=== PATIENT | male | born 1955 | race Caucasian/White ===

== ENCOUNTER 2018-11-26 10:27 | Outpatient (RCR) | payer BC ==
[~2018-11-26] VITALS: Ht 177.8 cm; Wt 95.7 kg
[2018-11-26] MEDS ORDERED: CATHETER FLUSH 10 ML SYR IV PRN (11:15)
[2018-11-26] MEDS ORDERED: REGADENOSON 0.4 MG/5 ML SYR (LEXISCAN) IV ONE ×2 (12:00→12:43)
[2018-11-26 13:05] VITALS: BP 142/92
[2018-11-26 13:07] VITALS: BP 152/77
--- NOTE | 2018-11-26 20:10 | STRESS TEST ---
DATE OF SERVICE: 11/26/2018 LEXISCAN MYOVIEW STRESS TEST REPORT REFERRING PHYSICIAN: Dr. Encinas. Baseline heart rate is 57. Baseline blood pressure 142/92. Baseline EKG is atrial fibrillation with no ischemic changes. In summary, the patient was injected with 10.84 mCi of technetium-99 Myoview and the resting images were obtained. Then, the patient received 0.4 mg of Lexiscan followed by 33.0 mCi of technetium-99 Myoview. Throughout the test, there were no EKG changes. The resting and stress images were reviewed and compared in the short axis, horizontal long axis, and vertical long axis views. Review of the images showed diaphragmatic attenuation with no significant ischemia or infarction. SSS is 0. TID value is increased, probably due to the atrial fibrillation of 1.26. On the gated images, the left ventricle appeared to be normal size. Gated images are unreliable due to atrial fibrillation. Calculated ejection fraction 64%. CONCLUSION: 1. The patient tolerated Lexiscan well. 2. Baseline atrial fibrillation persisted throughout test. 3. No significant ischemia or infarction on SPECT images. 4. Normal left ventricular size with normal contractility. Calculated ejection fraction 64%. Job ID: [id number] DocumentID: [id number] Dictated Date: 11/26/2018 17:32:38 Body Cleaner Date: 11/26/2018 20:09:53 Dictated By: LITZY HATFIELD MD
[2018-12-12] MEDS ORDERED: PRAM0.257 PO (08:14)
[2018-12-12] MEDS ORDERED: CITA20TA9 PO (08:14)
[2018-12-12] MEDS ORDERED: LATA7.5D (08:14)
[2018-12-12] MEDS ORDERED: MULT-974 PO (08:14)
[2018-12-12] MEDS ORDERED: IBUP-2185 PO (08:14)
[2018-12-12] MEDS ORDERED: RIVA20TA PO (08:14)
[2018-12-12] MEDS ORDERED: LISI10TA2 PO (08:14)
[2018-12-12] MEDS ORDERED: OMEP20TA7 PO (08:14)
[2018-12-12] MEDS ORDERED: AMIO200T4 PO (09:10)
== END 2019-02-24 | disposition home or self-care (01) ==
LOC: CARD 10:27
PROVIDERS: ATTEND Internal Medicine Cardiovascular Disease
DX: I48.2 Chronic atrial fibrillation (principal); R00.1 Bradycardia, unspecified; I10 Essential (primary) hypertension; R07.9 Chest pain, unspecified; I08.1 Rheumatic disorders of both mitral and tricuspid valves; R42 Dizziness and giddiness; F32.9 Major depressive disorder, single episode, unspecified
CPT/HCPCS: 78452; 93017; 93225; 93226; 93306

== ENCOUNTER → 2018-12-12 | Day surgery (SDC) | payer BC ==
[2018-12-12] VITALS (13 sets, daily range): BP systolic 118–174; BP diastolic 0–107
[~2018-12-12] VITALS: Ht 177.8 cm; Wt 95.3 kg
[~2018-12-12] MED LIST: AMIO200T4 PO; AMIODARONE 200 MG (CORDARONE) TAB PO SCH; AMIODARONE FOR BOLUS 150 MG in D5W 100 ML IVPB 100 ML IV ONE; CITA20TA9 PO; IBUP-2185 PO; LATA7.5D; LIDOCAINE 2% VISCOUS 15 ML UDC ONE; LIDOCAINE 2% VISCOUS 15 ML UDC PO ONE; LISI10TA2 PO; MIDAZOLAM 2 MG/2 ML (VERSED) VIAL ONE; MULT-974 PO; NS IV 1000 ML 1,000 ML IV SCH; NS IV 1000 ML 1,000 ML ONE; OMEP20TA7 PO; PRAM0.257 PO; RIVA20TA PO; proPOfol 200 MG/20 ML (DIPRIVAN) VIAL IV ONE
--- OUTSIDE RECORDS SUMMARY | 2018-12-12 06:55 | XMS REPORT ---
Author Author [facility] Medical Staff Organization [facility] Address [address] [place] [id number] Phone [phone] Care Team Providers Care Assembler Skylights Name Role Phone RENEE VAZQUEZ MD PP [phone] Summary purpose CCDA Sent to [facility] Chief Complaint and Reason for Visit No authorized Reason for Visit (Admitting Diagnosis) is available for this visit. Problem list No authorized problems tracked for continuity of care are available for this visit. Encounters No authorized problems tracked for encounter diagnoses are available for this visit. Medications No medications recorded for this patient visit Allergies, adverse reactions, alerts No allergy information is available for this patient. Immunizations No immunizations recorded for this patient visit Relevant diagnostic tests and/or laboratory data No authorized results are available for this patient visit History of procedures Procedure Code Code Type Description Date Performed Performing Physician 43739 CPT-4 X-RAY EXAM OF [place] 06-25-2017 ROGERS MACEDO 70141 CPT-4 X-RAY EXAM OF [place] 06-25-2017 ROGERS MACEDO Functional status No functional or cognitive status observations are available for this visit. Vital signs No authorized vital signs are available for this visit. Social history No Social History or smoking status observations were recorded for this visit. ( Unknown if ever smoked.) Treatment Plan No treatment plan text is available for this visit. Hospital discharge instructions No discharge instruction text is available for this visit.
--- OUTSIDE RECORDS SUMMARY | 2018-12-12 06:55 | XMS REPORT | CCD ---
Author Author EUGENIO MENENDEZ Organization Unknown Address [address] [place] [address] Care Team Providers Care Permaculture Designer Name Role Phone REMINGTON BILLS, ROGERS SNIDER Attphys Allergies Allergy Code Allergy Type Reaction Status PCN (penicillin) 0 Drug allergy HIVES Active Active Medications Unknown or Not Available. Problems Unknown or Not Available. Procedures Procedure Code Procedure Type Date Arthroscopy, knee, surgical; with meniscectomy (medial OR lateral, includi 50454 CPT 12/14/2016 Results Unknown or Not Available. Function Status Unknown or Not Available. History of Immunizations Immunization Code Date Td (adult), adsorbed 09 03/01/1999 Hep A, adult 52 03/01/1999 IG 86 03/01/1999 typhoid, ViCPs 101 03/01/1999 Plan of Treatment Unknown or Not Available. Social History Smoking Status Code Start Date End Date Never smoker [id number] Vital Signs Vital Sign Value Unit Date/Time Recent/Initial? BMI (Body Mass Index) 29.41 kg/m2 12/07/2016 12:39 Initial VS Weight Measured 205 [lb_av] 12/07/2016 12:39 Initial VS Height 70 [in_i] 12/07/2016 12:39 Initial VS BSA (Body Surface Area) 2.14 m2 12/07/2016 12:39 Initial VS Heart Rate 60 /min 12/14/2016 12:01 Initial VS O2 % BldC Oximetry 88 % 12/14/2016 12:01 Initial VS BP Systolic 107 mm[Hg] 12/14/2016 12:02 Initial VS BP Diastolic 63 mm[Hg] 12/14/2016 12:02 Initial VS Respiratory Rate 9 /min 12/14/2016 12:02 Initial VS Respiratory Rate 17 /min 12/14/2016 12:33 Most Recent VS O2 % BldC Oximetry 100 % 12/14/2016 12:33 Most Recent VS BP Systolic 140 mm[Hg] 12/14/2016 12:35 Most Recent VS BP Diastolic 72 mm[Hg] 12/14/2016 12:35 Most Recent VS Heart Rate 68 /min 12/14/2016 12:35 Most Recent VS Function Status Unknown or Not Available. Goals Unknown or Not Available. ASSESSMENTS Unknown or Not Available. Health Concerns Section Unknown or Not Available.
--- OUTSIDE RECORDS SUMMARY | 2018-12-12 06:57 | XMS REPORT ---
Author Author Hayder Encinas [facility] Address [address] [place], [place] [id number] Care Team Providers Care Curriculum Director Name Role Phone Hayder Encinas PCP Hayder Encinas PreferredProvider Allergies and Adverse Reactions Name Reaction Notes PENICILLINS Plan of Treatment Planned Activity Comments Planned Date Planned Time Plan/Goal CBC With Auto Differential 11/20/2018 12:00 AM CMP 11/20/2018 12:00 AM Lipid profile 11/20/2018 12:00 AM Hemoglobin A1C 11/20/2018 12:00 AM Thyroid stimulating hormone (TSH) 11/20/2018 12:00 AM Vitamin B12 11/20/2018 12:00 AM EKG. 11/20/2018 12:00 AM Troponin I blood 11/20/2018 12:00 AM UA ROUTINE ONLY 11/20/2018 12:00 AM Medications Active Name Start Date Estimated Completion Date SIG Comments Sildenafil 20 mg 06/20/2018 take 1 tablet daily and prn pramipexole 0.25 mg oral tablet 07/14/2018 TAKE 1 TABLET 2 TO 3 HOURS BEFORE BEDTIME lisinopril 5 mg oral tablet 07/22/2018 07/17/2019 take 1 tablet (5 mg) by oral route once daily for 90 days citalopram 20 mg oral tablet 09/22/2018 TAKE 1 TABLET DAILY timolol maleate 0.25 % ophthalmic (eye) drops 11/19/2018 Name Start Date Expiration Date SIG Comments Bactrim DS 800-160 mg oral tablet 05/29/2011 06/05/2011 take 1 tablet by oral route every 12 hours for 7 days Levaquin 750 mg oral tablet 09/07/2011 09/14/2011 take 1 tablet (750 mg) by oral route once daily for 7 days amoxicillin 500 mg oral capsule 2012 10/04/2012 take 2 capsules by oral route 3 times a day for 5 days Zithromax Z-Esvin 250 mg oral tablet 09/28/2013 10/03/2013 take 2 tablets (500 mg) by oral route once daily for 1 day then 1 tablet (250 mg) by oral route once daily for 4 days ciprofloxacin HCl 500 mg oral tablet 01/29/2014 02/19/2014 take 1 tablet (500 mg) by oral route every 12 hours for 21 days Medrol (Esvin) 4 mg oral tablets,dose pack 12/27/2014 01/08/2015 take as directed for 6 days promethazine-codeine 6.25-10 mg/5 mL oral syrup 12/27/2014 take 5 milliliters by oral route every 6 hours as needed, not to exceed 30 mL in 24 hours Levaquin 500 mg oral tablet 09/19/2015 09/26/2015 take 1 tablet (500 mg) by oral route once daily for 7 days Cialis 5 mg oral tablet 09/19/2015 10/19/2015 take 1 tablet (5 mg) by oral route once daily for 30 days Levaquin 500 mg oral tablet 09/19/2017 10/03/2017 take 1 tablet (500 mg) by oral route once daily for 14 days Discontinued Name Start Date Discontinued Date SIG Comments Lexapro 10 mg oral tablet 12/05/2012 take 1 tablet (10 mg) by oral route once daily Mirapex 0.125 mg oral tablet 08/28/2011 12/05/2012 take 1 tablet (0.125 mg) by oral route 2-3 hours before bedtime Alysa-D 12 Hour 60-120 mg oral tablet extended release 12 hr 12/05/201209/28 take 1 tablet by oral route 2 times a day as needed Medrol (Esvin) 4 mg oral tablets,dose pack 12/05/2012 09/28/2013 take as directed Axiron 30 mg/actuation (1.5 mL) transdermal solution in metered pump w/susan 04/06/2014 apply 1 pump (30 mg) by topical route once daily in the morning to each underarm for a total dose of 60 mg promethazine-codeine 6.25-10 mg/5 mL oral syrup 09/28/2013 04/06/2014 take 5 milliliters by oral route every 4-6 hours as needed, not to exceed 30 mL in 24 hours promethazine-codeine 6.25-10 mg/5 mL oral syrup 02/28/2015 04/06/2016 take 5 milliliters by oral route every 6 hours as needed amoxicillin 875 mg oral tablet 07/25/2015 07/29/2015 take 1 tablet (875 mg) by oral route every 12 hours for 7 days Bactrim DS 800-160 mg oral tablet 07/25/2015 07/29/2015 take 1 tablet by oral route every 12 hours for 7 days fluticasone 50 mcg/actuation nasal spray,suspension 10/21/2015 04/06/2016 inhale 1 spray (50 mcg) in each nostril by intranasal route once daily Bactrim DS 800-160 mg oral tablet 09/12/2017 09/19/2017 take 1 tablet by oral route every 12 hours for 7 days lisinopril-hydrochlorothiazide 10-12.5 mg oral tablet 11/21/2017 05/05/2018 take 1/2 tablet by oral route once daily for 30 days Problem List Description Status Onset Depression Active Restless Leg Syndrome Active Testosterone deficiency Active Vital Signs Date Time BP-Sys(mm[Hg] BP-Ofe(mm[Hg]) HR(bpm) RR(rpm) Temp WT HT HC BMI BSA BMI Percentile O2 Sat(%) 11/20/2018 9:30:00 AM 118 mmHg 60 mmHg 41 bpm 18 rpm 97.9 F 212.5 lbs 70 in 30.4903 kg/m 2.1819 m 99 % 04/17/2018 8:31:00 AM 134 mmHg 88 mmHg 56 bpm 18 rpm 98.1 F 208.375 lbs 70 in 29.90 kg/m2 2.16 m2 98 % 11/05/2017 6:12:00 PM 142 mmHg 86 mmHg 60 bpm 16 rpm 97.6 F 211 lbs 70 in 30.275 kg/m 2.1742 m 97 % 09/12/2017 9:47:00 AM 158 mmHg 94 mmHg 79 bpm 16 rpm 97.8 F 209.375 lbs 70 in 30.04 kg/m2 2.17 m2 99 % 08/29/2017 10:11:00 AM 130 mmHg 88 mmHg 75 bpm 20 rpm 97.1 F 210.125 lbs 70 in 30.1495 kg/m 2.1696 m 97 % 08/15/2017 8:24:00 AM 172 mmHg 94 mmHg 60 bpm 20 rpm 97 F 211.25 lbs 70 in 30.31 kg/m2 2.18 m2 98 % 04/16/2017 8:45:00 AM 134 mmHg 86 mmHg 59 bpm 14 rpm 96.1 F 207.5 lbs 70 in 29.7728 kg/m 2.156 m 97 % 04/06/2016 8:31:00 AM 126 mmHg 68 mmHg 60 bpm 19 rpm 97.7 F 233.8 lbs 70 in 33.55 kg/m2 2.29 m2 99 % 10/21/2015 9:01:00 AM 110 mmHg 70 mmHg 77 bpm 20 rpm 98.9 F 200 lbs 70 in 28.6967 kg/m 2.1167 m 99 % 09/19/2015 11:02:00 AM 124 mmHg 72 mmHg 85 bpm 18 rpm 98.4 F 201 lbs 70 in 28.84 kg/m2 2.12 m2 96 % 07/29/2015 9:15:00 AM 138 mmHg 82 mmHg 74 bpm 18 rpm 97.6 F 207 lbs 70 in 29.7011 kg/m 2.1534 m 95 % 02/28/2015 10:20:00 AM 128 mmHg 82 mmHg 83 bpm 20 rpm 98 F 205.125 lbs 70 in 29.43 kg/m2 2.14 m2 94 % 12/27/2014 1:58:00 PM 13 mmHg 86 mmHg 72 bpm 18 rpm 98 F 207 lbs 70 in 29.7011 kg/m 2.1534 m 10/18/2014 9:04:00 AM 134 mmHg 82 mmHg 60 bpm 18 rpm 97.7 F 204 lbs 70 in 29.27 kg/m2 2.14 m2 07/09/2014 9:16:00 AM 134 mmHg 82 mmHg 80 bpm 18 rpm 98 F 206 lbs 70 in 29.56 kg/m2 2.1482 m 04/06/2014 11:16:00 AM 132 mmHg 76 mmHg 59 bpm 16 rpm 97.4 F 192 lbs 70 in 27.5488 kg/m 2.07 m2 97 % 03/30/2014 10:56:00 AM 120 mmHg 82 mmHg 60 bpm 18 rpm 97.4 F 196 lbs 70 in 28.12 kg/m2 2.0954 m 02/11/2014 9:25:00 AM 118 mmHg 72 mmHg 72 bpm 18 rpm 98 F 201 lbs 70 in 28.8402 kg/m 2.12 m2 01/29/2014 9:40:00 AM 120 mmHg 82 mmHg 64 bpm 18 rpm 98 F 201 lbs 70 in 28.84 kg/m2 2.122 m 09/28/2013 2:10:00 PM 132 mmHg 64 mmHg 77 bpm 18 rpm 97.6 F 208.125 lbs 70 in 29.8625 kg/m 2.16 m2 98 % 07/08/2013 8:18:00 AM 130 mmHg 82 mmHg 78 bpm 18 rpm 97.6 F 205 lbs 70 in 29.41 kg/m2 2.143 m 12/05/2012 8:11:00 AM 130 mmHg 78 mmHg 64 bpm 18 rpm 87.5 F 201.4 lbs 70 in 28.8976 kg/m 2.12 m2 99 % 04/24/2012 10:46:00 AM 124 mmHg 72 mmHg 72 bpm 18 rpm 97.8 F 200 lbs 70 in 28.70 kg/m2 2.1167 m 10/02/2011 9:44:00 AM 132 mmHg 80 mmHg 64 bpm 20 rpm 97.4 F 196 lbs 70 in 28.1228 kg/m 2.10 m2 09/19/2011 10:44:00 AM 128 mmHg 72 mmHg 80 bpm 20 rpm 98.9 F 198 lbs 70 in 28.41 kg/m2 2.1061 m 09/07/2011 10:59:00 AM 134 mmHg 82 mmHg 72 bpm 18 rpm 97.8 F 198 lbs 70 in 28.4098 kg/m 2.11 m2 08/23/2011 1:55:00 PM 142 mmHg 74 mmHg 64 bpm 18 rpm 97.8 F 198 lbs 70 in 28.41 kg/m2 2.1061 m 05/29/2011 11:20:00 AM 122 mmHg 62 mmHg 66 bpm 18 rpm 98.3 F 195.375 lbs 70 in 28.0331 kg/m 2.09 m2 11/17/2010 10:41:00 AM 130 mmHg 82 mmHg 78 bpm 20 rpm 98.3 F 203 lbs 07/03/2010 9:46:00 AM 118 mmHg 74 mmHg 80 bpm 20 rpm 96.9 F 201 lbs 09/07/2009 8:47:00 AM 130 mmHg 72 mmHg 68 bpm 18 rpm 97 F 203 lbs 70 in 29.1272 kg/m 2.1325 m Social History Name Description Comments denies alcohol use Lives with spouse Tobacco Never smoker History of Procedures Date Ordered Description Order Status 07/29/2015 12:00 AM COMPLETE CBC W/AUTO DIFF WBC Reviewed 07/29/2015 12:00 AM COMPREHEN METABOLIC PANEL Reviewed 07/29/2015 12:00 AM GLYCOSYLATED HEMOGLOBIN TEST Reviewed 07/29/2015 12:00 AM CHEST X-RAY 2VW FRONTAL&LATL Reviewed 09/19/2015 12:00 AM Decadron, Per 1 Mg [facility]# [address]-46 Reviewed 09/19/2015 12:00 AM Depo-Medrol, Per 80 Mg [facility]#[address]-79 Reviewed 10/21/2015 12:[address] MAXILLOFACIAL W/O DYE Reviewed 08/23/2011 12:00 AM SHAVE SKIN LESION 0.6-1.0 CM Reviewed 09/19/2011 12:00 AM COMPLETE CBC W/AUTO DIFF WBC Reviewed 09/19/2011 12:00 AM COMPREHEN METABOLIC PANEL Reviewed 09/19/2011 12:00 AM CHEST X-RAY 2VW FRONTAL&LATL Reviewed 04/06/2016 12:00 AM COMPLETE CBC W/AUTO DIFF WBC Reviewed 04/06/2016 12:00 AM LIPID PANEL Reviewed 10/02/2011 12:00 AM BREATHING CAPACITY TEST Reviewed 04/24/2012 12:00 AM COMPLETE CBC W/AUTO DIFF WBC Reviewed 04/24/2012 12:00 AM COMPREHEN METABOLIC PANEL Reviewed 04/24/2012 12:00 AM LIPID PANEL Reviewed 04/24/2012 12:00 AM ASSAY OF TOTAL TESTOSTERONE Reviewed 04/16/2017 12:00 AM METABOLIC PANEL TOTAL CA Returned 04/16/2017 12:00 AM COMPLETE CBC W/AUTO DIFF WBC Returned 04/16/2017 12:00 AM LIPID PANEL Returned 04/16/2017 12:00 AM Prostate Cancer Screening Returned 09/12/2017 12:00 AM MRI BRAIN STEM W/O & W/DYE Returned 09/16/2017 12:00 AM METABOLIC PANEL TOTAL CA Returned 12/05/2012 12:00 AM X-RAY EXAM KNEE 4 OR MORE Reviewed 12/05/2012 12:00 AM Cbc With Auto Differential % Reviewed 12/05/2012 12:00 AM COMPREHEN METABOLIC PANEL Reviewed 12/05/2012 12:00 AM LIPID PANEL Reviewed 12/05/2012 12:00 AM VIT B-12 ABSORP COMBINED Reviewed 12/05/2012 12:00 AM ASSAY THYROID STIM HORMONE Reviewed 12/05/2012 12:00 AM ASSAY OF TOTAL TESTOSTERONE Reviewed 04/17/2018 12:00 AM COMPLETE CBC W/AUTO DIFF WBC Returned 04/17/2018 12:00 AM COMPREHEN METABOLIC PANEL Returned 04/17/2018 12:00 AM LIPID PANEL Returned 04/17/2018 12:00 AM Prostate Cancer Screening Returned 05/15/2018 12:00 AM COMPLETE CBC W/AUTO DIFF WBC Returned 06/25/2013 12:00 AM ROUTINE VENIPUNCTURE Reviewed 06/25/2013 12:00 AM ASSAY OF TOTAL TESTOSTERONE Reviewed 09/28/2013 12:00 AM THER/PROPH/DIAG INJ SC/IM Reviewed 09/28/2013 12:00 AM Decadron, Per 1 Mg [facility]# [address]-37 Reviewed 09/28/2013 12:00 AM Depo-Medrol, Per 80 Mg [facility]#9636-9207-17 Reviewed 01/29/2014 12:00 AM COMPLETE CBC W/AUTO DIFF WBC Reviewed 01/29/2014 12:00 AM Prostate Cancer Screening PSA Reviewed 09/07/2009 12:00 AM COMPLETE CBC W/AUTO DIFF WBC Reviewed 09/07/2009 12:00 AM COMPREHEN METABOLIC PANEL Reviewed 09/07/2009 12:00 AM LIPID PANEL Reviewed 09/07/2009 12:00 AM GLYCOSYLATED HEMOGLOBIN TEST Reviewed 09/07/2009 12:00 AM ASSAY OF PSA TOTAL Reviewed 09/07/2009 12:00 AM EXC TR-EXT B9+ODALYS 0.5 CM< Reviewed 11/17/2010 12:00 AM COMPLETE CBC W/AUTO DIFF WBC Reviewed 11/17/2010 12:00 AM COMPREHEN METABOLIC PANEL Reviewed 11/17/2010 12:00 AM ASSAY THYROID STIM HORMONE Reviewed 11/17/2010 12:00 AM VITAMIN B-12 Reviewed 11/17/2010 12:00 AM Prostate Cancer Screening Reviewed 11/17/2010 12:00 AM ASSAY OF TOTAL TESTOSTERONE Reviewed 11/17/2010 12:00 AM THER/PROPH/DIAG INJ SC/IM Reviewed 11/17/2010 12:00 AM Depo-Medrol 80 Mg [facility] [id number] Reviewed 11/17/2010 12:00 AM Decadron Inj. per 1mg-[facility] [id number] Reviewed 10/18/2014 12:00 AM COMPLETE CBC W/AUTO DIFF WBC Reviewed 10/18/2014 12:00 AM COMPREHEN METABOLIC PANEL Reviewed 10/18/2014 12:00 AM LIPID PANEL Reviewed 10/18/2014 12:00 AM GLYCOSYLATED HEMOGLOBIN TEST Reviewed 10/18/2014 12:00 AM ASSAY THYROID STIM HORMONE Reviewed 10/18/2014 12:00 AM VITAMIN B-12 Reviewed 10/18/2014 12:00 AM ASSAY OF TOTAL TESTOSTERONE Reviewed 12/27/2014 12:00 AM Rocephin 1 gram [facility]#0322-1610-05 Reviewed 02/28/2015 12:00 AM Decadron, Per 1 Mg [facility]# [address]-40 Reviewed 02/28/2015 12:00 AM Depo-Medrol 40mg Reviewed Results Summary Date and Description Results 11/17/2010 11:55 AM PSA TOTAL 1.530 ng/mLTSH 1.770 uIU/mLGLUCOSE 97.0 mg/ dLSODIUM 138.0 mmol/LPOTASSIUM 4.60 mmol/LCHLORIDE 101.0 mmol/LCO2 25.0 mmol/ LBUN 11.0 mg/dLCREATININE 0.90 mg/dLSGOT/AST 44.0 IU/LSGPT/ALT 54.0 IU/LALK PHOS 86.0 IU/LTOTAL PROTEIN 8.0 g/dLALBUMIN 4.70 g/dLTOTAL BILI 0.70 mg/ dLCALCIUM 9.70 mg/dLAGE 55 GFR NonAA 87 GFR AA 105 eGFR >60 mL/min/1.73 m2eGFR AA* >60 WBC 5.9 RBC 5.29 HGB 16.50 g/dLHCT 45.30 %MCV 86.0 fLMCH 31.20 pgMCHC 36.40 g/dLRDW SD 39 RDW CV 12.30 %MPV 9.90 fLPLT 230 NRBC# 0.00 NRBC% 0.0 %NEUT 57.40 %%LYMP 24.80 %%MONO 13.20 %%EOS 3.90 %%BASO 0.70 %#NEUT 3.38 #LYMP 1.46 # MONO 0.78 #EOS 0.23 #BASO 0.04 MANUAL DIFF NOT IND 09/19/2011 12:10 PM WBC 12.4 RBC 4.80 HGB 14.80 g/dLHCT 41.50 %MCV 87.0 fLMCH 30.80 pgMCHC 35.70 g/dLRDW SD 40 RDW CV 12.80 %MPV 9.40 fLPLT 217 NRBC# 0.00 NRBC% 0.0 %NEUT 63.50 %%LYMP 16.70 %%MONO 15.10 %%EOS 4.10 %%BASO 0.60 %#NEUT 7.88 #LYMP 2.08 #MONO 1.88 #EOS 0.51 #BASO 0.07 MANUAL DIFF NOT IND GLUCOSE 69.0 mg/dLSODIUM 135.0 mmol/LPOTASSIUM 4.20 mmol/LCHLORIDE 101.0 mmol/LCO2 26.0 mmol/LBUN 12.0 mg/dLCREATININE 1.0 mg/dLSGOT/AST 24.0 IU/LSGPT/ALT 25.0 IU/LALK PHOS 80.0 IU/LTOTAL PROTEIN 7.0 g/dLALBUMIN 4.40 g/dLTOTAL BILI 0.80 mg/ dLCALCIUM 9.70 mg/dLAGE 55 GFR NonAA 77 GFR AA 93 eGFR >60 mL/min/1.73 m2eGFR AA * >60 06/12/2012 9:00 AM WBC 10.3 RBC 5.54 HGB 17.20 g/dLHCT 47.30 %MCV 85.0 fLMCH 31.0 pgMCHC 36.40 g/dLRDW SD 38 RDW CV 12.30 %MPV 9.60 fLPLT 282 NRBC# 0.00 NRBC % 0.0 %NEUT 55.70 %%LYMP 30.90 %%MONO 8.70 %%EOS 4.10 %%BASO 0.60 %#NEUT 5.74 # LYMP 3.18 #MONO 0.90 #EOS 0.42 #BASO 0.06 MANUAL DIFF NOT IND GLUCOSE 96.0 mg/ dLSODIUM 139.0 mmol/LPOTASSIUM 4.30 mmol/LCHLORIDE 105.0 mmol/LCO2 27.0 mmol/ LBUN 20.0 mg/dLCREATININE 1.0 mg/dLSGOT/AST 34.0 IU/LSGPT/ALT 40.0 IU/LALK PHOS 75.0 IU/LTOTAL PROTEIN 7.80 g/dLALBUMIN 4.60 g/dLTOTAL BILI 1.10 mg/dLCALCIUM 10.10 mg/dLAGE 56 GFR NonAA 77 GFR AA 93 eGFR 60 eGFR AA* 60 TRIGLYCERIDES 109.0 mg/dLCHOLESTEROL 176.0 mg/dLHDL 46.0 mg/dLTOT CHOL/HDL 3.8 LDL (CALC) 108.0 mg/dL 12/05/2012 9:10 AM WBC 7.7 RBC 5.37 HGB 16.80 g/dLHCT 45.60 %MCV 85.0 fLMCH 31.30 pgMCHC 36.80 g/dLRDW SD 39 RDW CV 12.60 %MPV 9.60 fLPLT 255 NRBC# 0.00 NRBC% 0.0 %NEUT 62.30 %%LYMP 27.40 %%MONO 6.10 %%EOS 3.60 %%BASO 0.60 %#NEUT 4.79 #LYMP 2.11 #MONO 0.47 #EOS 0.28 #BASO 0.05 MANUAL DIFF NOT IND GLUCOSE 97.0 mg/dLSODIUM 141.0 mmol/LPOTASSIUM 4.80 mmol/LCHLORIDE 105.0 mmol/LCO2 26.0 mmol/LBUN 14.0 mg/dLCREATININE 1.0 mg/dLSGOT/AST 26.0 IU/LSGPT/ALT 31.0 IU/LALK PHOS 82.0 IU/LTOTAL PROTEIN 7.60 g/dLALBUMIN 4.50 g/dLTOTAL BILI 0.90 mg/ dLCALCIUM 10.10 mg/dLAGE 57 GFR NonAA 77 GFR AA 93 eGFR 60 eGFR AA* 60 TRIGLYCERIDES 96.0 mg/dLCHOLESTEROL 157.0 mg/dLHDL 48.0 mg/dLTOT CHOL/HDL 3.3 LDL (CALC) 90.0 mg/dLTSH 1.670 uIU/mLVITAMIN B12 452.0 pg/mL 06/30/2013 8:10 AM TESTOSTERONE 386.0 ng/dL 01/29/2014 11:07 AM WBC 7.3 RBC 5.31 HGB 16.60 g/dLHCT 45.10 %MCV 85.0 fLMCH 31.30 pgMCHC 36.80 g/dLRDW SD 40 RDW CV 12.90 %MPV 10.10 fLPLT 277 NRBC# 0.00 NRBC% 0.0 %NEUT 54.90 %%LYMP 31.90 %%MONO 7.90 %%EOS 4.80 %%BASO 0.50 %#NEUT 4.03 #LYMP 2.34 #MONO 0.58 #EOS 0.35 #BASO 0.04 MANUAL DIFF NOT IND PSA TOTAL 1.970 ng/mL 10/18/2014 9:45 AM TESTOSTERONE 393.0 ng/dLVITAMIN B12 445.0 pg/mLTSH 1.420 uIU/ mLGLUCOSE 92.0 mg/dLSODIUM 141.0 mmol/LPOTASSIUM 4.40 mmol/LCHLORIDE 105.0 mmol/ LCO2 25.0 mmol/LBUN 12.0 mg/dLCREATININE 0.90 mg/dLSGOT/AST 32.0 IU/LSGPT/ALT 42.0 IU/LALK PHOS 70.0 IU/LTOTAL PROTEIN 7.30 g/dLALBUMIN 4.50 g/dLTOTAL BILI 0.60 mg/dLCALCIUM 10.0 mg/dLAGE 59 GFR NonAA 86 GFR AA 104 eGFR >60 mL/min/1.73 m2eGFR AA* >60 WBC 7.9 RBC 5.05 HGB 15.90 g/dLHCT 44.20 %MCV 88.0 fLMCH 31.50 pgMCHC 36.0 g/dLRDW SD 40 RDW CV 12.80 %MPV 9.50 fLPLT 255 NRBC# 0.00 NRBC% 0.0 %NEUT 60.40 %%LYMP 28.20 %%MONO 8.0 %%EOS 2.80 %%BASO 0.60 %#NEUT 4.78 #LYMP 2.23 #MONO 0.63 #EOS 0.22 #BASO 0.05 MANUAL DIFF NOT IND TRIGLYCERIDES 70.0 mg/ dLCHOLESTEROL 150.0 mg/dLHDL 52.0 mg/dLTOT CHOL/HDL 2.9 LDL (CALC) 84.0 mg/ dLHGB A1C 7.10 %Est Avg Glucose 157.1 mg/dL 07/29/2015 10:06 AM WBC 6.6 RBC 5.07 HGB 15.60 g/dLHCT 43.70 %MCV 86.0 fLMCH 30.80 pgMCHC 35.70 g/dLRDW SD 39 RDW CV 12.50 %MPV 9.70 fLPLT 256 NRBC# 0.00 NRBC% 0.0 %NEUT 56.10 %%LYMP 21.30 %%MONO 14.90 %%EOS 7.40 %%BASO 0.30 %#NEUT 3.69 #LYMP 1.40 #MONO 0.98 #EOS 0.49 #BASO 0.02 MANUAL DIFF PENDING GLUCOSE 98.0 mg/dLSODIUM 137.0 mmol/LPOTASSIUM 4.60 mmol/LCHLORIDE 106.0 mmol/LCO2 23.0 mmol/LBUN 16.0 mg/dLCREATININE 1.10 mg/dLSGOT/AST 34.0 IU/LSGPT/ALT 37.0 IU/ LALK PHOS 85.0 IU/LTOTAL PROTEIN 6.70 g/dLALBUMIN 4.40 g/dLTOTAL BILI 0.80 mg/ dLCALCIUM 9.20 mg/dLAGE 59 GFR NonAA 68 GFR AA 82 eGFR >60 mL/min/1.73meGFR AA * >60 Hemoglobin A1c 5.70 %Estim. Avg Glu (eAG) 117 04/06/2016 9:22 AM WBC 8.2 RBC 5.37 HGB 15.90 g/dLHCT 45.60 %MCV 85.0 fLMCH 29.60 pgMCHC 34.90 g/dLRDW SD 36 RDW CV 12.10 %MPV 9.70 fLPLT 276 NRBC# 0.00 NRBC% 0.0 %NEUT 55.40 %%LYMP 30.90 %%MONO 8.50 %%EOS 4.0 %%BASO 0.70 %#NEUT 4.53 #LYMP 2.53 #MONO 0.70 #EOS 0.33 #BASO 0.06 MANUAL DIFF NOT IND TRIGLYCERIDES 114.0 mg/dLCHOLESTEROL 145.0 mg/dLHDL 43.0 mg/dLTOT CHOL/HDL 3.4 LDL (CALC) 79.0 mg/dL History Of Immunizations Not available. History of Past Illness Name Date of Onset Comments Depression and anxiety Sep 07 2009 8:50AM Warts Sep 07 2009 2:06PM Hypersomnia, Transient Sep 07 2009 8:50AM Warts Sep 07 2009 8:50AM Depression Restless Leg Syndrome Testosterone deficiency Depression and anxiety Jul 03 2010 9:51AM Fatigue Nov 17 2010 10:45AM Sinusitis, Acute Nov 17 2010 10:45AM Prostate screening Nov 17 2010 10:45AM General Medical Exam, Adult Nov 17 2010 10:45AM Upper Respiratory Infections May 29 2011 11:17AM Lesion, Skin Aug 28 2011 8:08AM Restless Leg Syndrome Aug 23 2011 2:01PM Upper Respiratory Infection Sep 07 2011 11:04AM Upper Respiratory Infection Sep 19 2011 10:49AM Cough Oct 02 2011 9:48AM Sinusitis Apr 24 2012 10:50AM Screening for Lipid disorders Apr 24 2012 10:50AM Testosterone deficiency Apr 24 2012 10:50AM Fatigue Dec 05 2012 8:18AM Eustachian Tube Dysfunction, Bilateral Dec 05 2012 8:18AM Screening for Ischemic Heart Disease Dec 05 2012 8:18AM Testosterone deficiency Dec 05 2012 8:18AM Pain in joint; Knee Left Dec 05 2012 8:18AM Prostate screening Jun 25 2013 5:40PM Testosterone deficiency Jun 25 2013 5:40PM Low Testosterone Jul 08 2013 8:26AM Upper Respiratory Infections Sep 28 2013 2:12PM Other specified disorders of male genital organs; hematospermia Jan 29 2014 9 :46AM Testosterone deficiency Jan 29 2014 9:46AM Osteoarthritis, Knee Feb 11 2014 4:46PM Osteoarthritis, knee Feb 11 2014 9:30AM General Medical Exam, Adult Mar 30 2014 11:01AM Colon Cancer Screening Apr 06 2014 11:17AM Knee pain Jul 09 2014 9:20AM Osteoarthritis, Knee Jul 13 2014 8:31AM Headache Oct 18 2014 9:13AM Hyperglycemia Oct 18 2014 9:13AM Fatigue Oct 18 2014 9:13AM Depression and anxiety Oct 18 2014 9:13AM Bronchitis, Acute Dec 27 2014 2:05PM Sinusitis Feb 28 2015 10:22AM Diabetes Mellitus, Type II Jul 29 2015 9:20AM Vision blurring Jul 29 2015 9:20AM Cough Jul 29 2015 9:20AM BPH (benign prostatic hyperplasia) Sep 19 2015 11:07AM Goiter Sep 19 2015 11:07AM Sinusitis Sep 19 2015 11:07AM Sinusitis chronic, frontal Oct 21 2015 9:04AM General Medical Exam, Adult Apr 06 2016 8:34AM General Medical Exam, Adult Apr 16 2017 8:46AM Screening For Prostate Cancer Apr 16 2017 8:46AM Hypertension Aug 15 2017 8:25AM Hypertension Aug 29 2017 10:18AM Hypertension Sep 12 2017 9:49AM Sinusitis Sep 12 2017 9:49AM Double vision Sep 12 2017 9:49AM Unsteady gait Sep 12 2017 9:49AM Blood tests prior to treatment or procedure Sep 12 2017 2:55PM Double vision Sep 12 2017 2:55PM Unsteady gait Sep 12 2017 2:55PM Blurred vision, bilateral Sep 16 2017 10:41AM Essential hypertension Nov 05 2017 6:15PM Annual physical exam Apr 17 2018 8:33AM Screening For Prostate Cancer Apr 17 2018 8:33AM Leukocytosis Apr 18 2018 10:26AM Hyperglycemia Nov 20 2018 9:35AM Polyuria Nov 20 2018 9:35AM Bradycardia Nov 20 2018 9:35AM Fatigue Nov 20 2018 9:35AM Payers Insurance Name Company Name Plan Name Plan Number Policy Number Policy Group Number Start Date [employer] [place] [id number] Monday, 2013 [employer] [place] [id number] Monday, 2009 [employer] [place] [id number] Saturday, 2013 History of Encounters Visit Date Visit Type Provider 11/20/2018 Office visit Hayder Encinas MD 04/17/2018 Office visit Hayder Encinas MD 11/05/2017 Office visit Shantell BargerKaterine Lourdes ROPE TIER 09/12/2017 Office visit Hayder Encinas MD 08/29/2017 Office visit Hayder Encinas MD 08/15/2017 Office visit Hayder Encinas MD 04/16/2017 Office visit Hayder Encinas MD 12/07/2016 Laboratory Trinidad Goldberg MD 04/06/2016 Office visit Hayder Encinas MD 10/21/2015 Office visit Frank Rojas ROPE TIER 09/19/2015 Office visit Hayder Encinas MD 07/29/2015 Office visit Hayder Encinas MD 02/28/2015 Office visit Hayder Encinas MD 12/27/2014 Office visit Hayder Encinas MD 10/18/2014 Office visit 10/18/2014 Office visit Hayder Encinas MD 07/09/2014 Office visit Hayder Encinas MD 04/15/2014 [facility] Celso Luke MD 04/06/2014 Office visit Celso Luke MD 03/30/2014 Office visit Hayder Encinas MD 02/11/2014 Office visit Hayder Encinas MD 01/29/2014 Office visit Hayder Encinas MD 09/28/2013 Office visit Tessa Bloom APRN 07/08/2013 Office visit Hayder Encinas MD 12/05/2012 Office visit Chanda Tomlinson APRN 04/24/2012 Office visit Hayder Encinas MD 10/02/2011 Office visit Hayder Encinas MD 09/19/2011 Office visit Hayder Encinas MD 09/07/2011 Office visit Hayder Encinas MD 08/23/2011 Office visit Hayder Encinas MD 05/29/2011 Office visit Tessa Bloom APRN 11/17/2010 Office visit Hayder Encinas MD 07/03/2010 Office visit Hayder Encinas MD 09/07/2009 Office visit Hayder Encinas MD
--- OUTSIDE RECORDS SUMMARY | 2018-12-12 06:58 | XMS REPORT ---
Author Author Hayder Encinas [facility] Address [address] [place], [place] [id number] Care Team Providers Care Handle Maker Name Role Phone Hayder Encinas PCP Hayder Encinas PreferredProvider Allergies and Adverse Reactions Name Reaction Notes PENICILLINS Plan of Treatment Planned Activity Comments Planned Date Planned Time Plan/Goal CBC With Auto Differential 04/17/2018 12:00 AM CMP 04/17/2018 12:00 AM Lipid profile 04/17/2018 12:00 AM Medications Active Name Start Date Estimated Completion Date SIG Comments pramipexole 0.125 mg oral tablet 08/30/2014 TAKE 1 TABLET (0.125 MG) BY ORAL ROUTE 2-3 HOURS BEFORE BEDTIME FOR 90 DAYS citalopram 20 mg oral tablet 11/08/2014 TAKE 1 TABLET BY MOUTH EVERY DAY pramipexole 0.125 mg oral tablet 02/04/2015 TAKE ONE TABLET 2 TO 3 HOURS BEFORE BEDTIME citalopram 20 mg oral tablet 07/13/2015 TAKE 1 TABLET DAILY lisinopril-hydrochlorothiazide 10-12.5 mg oral tablet 11/21/2017 08/18/2018 take 1/2 tablet by oral route once daily for 30 days Name Start Date Expiration Date SIG Comments [...] 3 times a day for 5 days pramipexole 0.125 mg oral tablet 09/11/2013 09/06/2014 take 1 tablet (0.125 mg ) by oral route 2-3 hours before bedtime for 90 days Zithromax Z-Esvin 250 mg oral tablet 09/28/2013 10/03/2013 take 2 tablets (500 mg) by oral route once daily for 1 day then 1 tablet (250 mg) by oral route once daily for 4 days ciprofloxacin HCl 500 mg oral tablet 01/29/2014 02/19/2014 take 1 tablet (500 mg) by oral route every 12 hours for 21 days citalopram 20 mg oral tablet 10/18/2014 01/11/2016 take 1 tablet by oral route daily for 90 days Medrol (Esvin) 4 mg oral tablets,dose [...] oral route once daily for 30 days pramipexole 0.25 mg oral tablet 05/07/2016 09/04/2016 take 1 tablet (0.25 mg) by oral route 2-3 hours before bedtime for 30 days pramipexole 0.25 mg oral tablet 07/15/2017 07/15/2017 TAKE 1 TABLET 2 TO 3 HOURS BEFORE BEDTIME Levaquin 500 mg oral tablet 09/19/2017 10/03/2017 take 1 tablet (500 mg) by oral route once daily for 14 days citalopram 20 mg oral tablet 09/27/2017 09/27/2017 TAKE 1 TABLET DAILY Discontinued Name Start Date Discontinued Date SIG [...] route every 12 hours for 7 days Problem List Description Status Onset Depression Active Restless Leg Syndrome Active Testosterone deficiency Active Vital Signs Date Time BP-Sys(mm[Hg] BP-Ofe(mm[Hg]) HR(bpm) RR(rpm) Temp WT HT HC BMI BSA BMI Percentile O2 Sat(%) 04/17/2018 8:31:00 AM 134 mmHg 88 mmHg 56 bpm 18 rpm 98.1 F 208.375 lbs 70 in 29.8984 kg/m 2.1606 m 98 % 11/05/2017 6:12:00 PM 142 mmHg 86 mmHg 60 bpm 16 rpm 97.6 F 211 lbs 70 in 30.28 kg/m2 2.17 m2 97 % 09/12/2017 9:47:00 AM 158 mmHg 94 mmHg 79 bpm 16 rpm 97.8 F 209.375 lbs 70 in 30.0419 kg/m 2.1658 m 99 % 08/29/2017 10:11:00 AM 130 mmHg 88 mmHg 75 bpm 20 rpm 97.1 F 210.125 lbs 70 in 30.1495 kg/m 2.17 m2 97 % 08/15/2017 8:24:00 AM 172 mmHg 94 mmHg 60 bpm 20 rpm 97 F 211.25 lbs 70 in 30.31 kg/m2 2.1754 m 98 % 04/16/2017 8:45:00 AM 134 mmHg 86 mmHg 59 bpm 14 rpm 96.1 F 207.5 lbs 70 in 29.77 kg/m2 2.16 m2 97 % 04/06/2016 8:31:00 AM 126 mmHg 68 mmHg 60 bpm 19 rpm 97.7 F 233.8 lbs 70 in 33.5465 kg/m 2.2886 m 99 % 10/21/2015 9:01:00 AM 110 mmHg 70 mmHg 77 bpm 20 rpm 98.9 F 200 lbs 70 in 28.70 kg/m2 2.12 m2 99 % 09/19/2015 11:02:00 AM 124 mmHg 72 mmHg 85 bpm 18 rpm 98.4 F 201 lbs 70 in 28.8402 kg/m 2.122 m 96 % 07/29/2015 9:15:00 AM 138 mmHg 82 mmHg 74 bpm 18 rpm 97.6 F 207 lbs 70 in 29.70 kg/m2 2.15 m2 95 % 02/28/2015 10:20:00 AM 128 mmHg 82 mmHg 83 bpm 20 rpm 98 F 205.125 lbs 70 in 29.4321 kg/m 2.1437 m 94 % 12/27/2014 1:58:00 PM 13 mmHg 86 mmHg 72 bpm 18 rpm 98 F 207 lbs 70 in 29.70 kg/m2 2.15 m2 10/18/2014 9:04:00 AM 134 mmHg 82 mmHg 60 bpm 18 rpm 97.7 F 204 lbs 70 in 29.2707 kg/m 2.1378 m 07/09/2014 9:16:00 AM 134 mmHg 82 mmHg 80 bpm 18 rpm 98 F 206 lbs 70 in 29.56 kg/m2 2.15 m2 04/06/2014 11:16:00 AM 132 mmHg 76 mmHg 59 bpm 16 rpm 97.4 F 192 lbs 70 in 27.5488 kg/m 2.074 m 97 % 03/30/2014 10:56:00 AM 120 mmHg 82 mmHg 60 bpm 18 rpm 97.4 F 196 lbs 70 in 28.12 kg/m2 2.10 m2 02/11/2014 9:25:00 AM 118 mmHg 72 mmHg 72 bpm 18 rpm 98 F 201 lbs 70 in 28.8402 kg/m 2.122 m 01/29/2014 9:40:00 AM 120 mmHg 82 mmHg 64 bpm 18 rpm 98 F 201 lbs 70 in 28.84 kg/m2 2.12 m2 09/28/2013 2:10:00 PM 132 mmHg 64 mmHg 77 bpm 18 rpm 97.6 F 208.125 lbs 70 in 29.8625 kg/m 2.1593 m 98 % 07/08/2013 8:18:00 AM 130 mmHg 82 mmHg 78 bpm 18 rpm 97.6 F 205 lbs 70 in 29.41 kg/m2 2.14 m2 12/05/2012 8:11:00 AM 130 mmHg 78 mmHg 64 bpm 18 rpm 87.5 F 201.4 lbs 70 in 28.8976 kg/m 2.1241 m 99 % 04/24/2012 10:46:00 AM 124 mmHg 72 mmHg 72 bpm 18 rpm 97.8 F 200 lbs 70 in 28.70 kg/m2 2.12 m2 10/02/2011 9:44:00 AM 132 mmHg 80 mmHg 64 bpm 20 rpm 97.4 F 196 lbs 70 in 28.1228 kg/m 2.0954 m 09/19/2011 10:44:00 AM 128 mmHg 72 mmHg 80 bpm 20 rpm 98.9 F 198 lbs 70 in 28.41 kg/m2 2.11 m2 09/07/2011 10:59:00 AM 134 mmHg 82 mmHg 72 bpm 18 rpm 97.8 F 198 lbs 70 in 28.4098 kg/m 2.1061 m 08/23/2011 1:55:00 PM 142 mmHg 74 mmHg 64 bpm 18 rpm 97.8 F 198 lbs 70 in 28.41 kg/m2 2.11 m2 05/29/2011 11:20:00 AM 122 mmHg 62 mmHg 66 bpm 18 rpm 98.3 F 195.375 lbs 70 in 28.0331 kg/m 2.0921 m 11/17/2010 10:41:00 AM 130 mmHg 82 mmHg [...] 09/19/2015 12:00 AM Decadron, Per 1 Mg [facility]# [address]-20 Reviewed 09/19/2015 12:00 AM Depo-Medrol, Per 80 Mg [facility]#[address]-09 Reviewed 10/21/2015 12:[address] MAXILLOFACIAL W/O [...] 12:00 AM ASSAY OF TOTAL TESTOSTERONE Reviewed 06/25/2013 12:00 AM ROUTINE VENIPUNCTURE Reviewed 06/25/2013 12:00 AM ASSAY OF TOTAL TESTOSTERONE Reviewed 09/28/2013 12:00 AM THER/PROPH/DIAG INJ SC/IM Reviewed 09/28/2013 12:00 AM Decadron, Per 1 Mg [facility]# [address]-46 Reviewed 09/28/2013 12:00 AM Depo-Medrol, Per 80 Mg [facility]#8307-3197-11 Reviewed 01/29/2014 12:00 AM COMPLETE CBC W/AUTO [...] Reviewed 11/17/2010 12:00 AM Depo-Medrol 80 Mg [facility] [id number] Reviewed 11/17/2010 12:00 AM Decadron Inj. per 1mg-[facility] [id number] Reviewed 10/18/2014 12:00 AM COMPLETE CBC W/AUTO DIFF WBC Reviewed 10/18/2014 12:00 AM COMPREHEN METABOLIC PANEL Reviewed 10/18/2014 12:00 AM LIPID PANEL Reviewed 10/18/2014 12:00 AM GLYCOSYLATED HEMOGLOBIN TEST Reviewed 10/18/2014 12:00 AM ASSAY THYROID STIM HORMONE Reviewed 10/18/2014 12:00 AM VITAMIN B-12 Reviewed 10/18/2014 12:00 AM ASSAY OF TOTAL TESTOSTERONE Reviewed 12/27/2014 12:00 AM Rocephin 1 gram [facility]#3194-6139-49 Reviewed 02/28/2015 12:00 AM Decadron, Per 1 Mg [facility]# [address]-61 Reviewed 02/28/2015 12:00 AM Depo-Medrol 40mg Reviewed [...] 15.90 g/dLHCT 45.60 %MCV 85.0 fLMCH 29.60 pgHC 34.90 g/dLRDW SD 36 RDW CV 12.10 [...] For Prostate Cancer Apr 17 2018 8:33AM Payers Insurance Name Company Name Plan Name Plan Number Policy Number Policy Group Number Start Date [employer] [place] [id number] Monday, 2013 [employer] [place] [id number] Monday, 2009 [employer] [place] [id number] Saturday, 2013 History of Encounters Visit Date Visit Type Provider 04/17/2018 Office visit Hayder Encinas MD 11/05/2017 Office visit Shantell Freed TELLERS SUPERVISOR 09/12/2017 Office visit Hayder Encinas MD 08/29/2017 Office visit Hayder Encinas MD 08/15/2017 Office visit Hayder Encinas MD 04/16/2017 Office visit Hayder Encinas MD 12/07/2016 Laboratory Trinidad Goldberg MD 04/06/2016 Office visit Hayder Encinas MD 10/21/2015 Office visit Frank Rojas TELLERS SUPERVISOR 09/19/2015 Office visit Hayder Encinas MD 07/29/2015 Office visit Hayder Encinas MD 02/28/2015 Office visit Hayder Encinas MD 12/27/2014 Office visit Hayder Encinas MD 10/18/2014 Office visit 10/18/2014 Office visit Hayder Encinas MD 07/09/2014 Office visit Hayder Encinas MD 04/15/2014 [facility] Celso Luke MD 04/06/2014 Office visit Celso Luke MD 03/30/2014 Office visit Hayder Encinas MD 02/11/2014 Office visit Hayder Encinas MD 01/29/2014 Office visit Hayder Encinas MD 09/28/2013 Office visit Tessa Bloom TELLERS SUPERVISOR 07/08/2013 Office visit Hayder Encinas MD 12/05/2012 Office visit Chanda Tomlinson TELLERS SUPERVISOR 04/24/2012 Office visit Hayder Encinas MD 10/02/2011 Office visit Hayder Encinas MD 09/19/2011 Office visit Hayder Encinas MD 09/07/2011 Office visit Hayder Encinas MD 08/23/2011 Office visit Hayder Encinas MD 05/29/2011 Office visit Tessa Bloom APRN 11/17/2010 Office visit Hayder Encinas MD 07/03/2010 Office visit Hayder Encinas MD 09/07/2009 Office visit Hayder Encinas MD
--- OUTSIDE RECORDS SUMMARY | 2018-12-12 06:58 | XMS REPORT ---
Author Author Hayder Encinas [facility] Address [address] [place], [place] [id number] Care Team Providers Care Car Rental Service Attendant Name Role Phone Hayder Encinas PCP Hayder Encinas PreferredProvider Allergies and Adverse Reactions Name Reaction Notes PENICILLINS Plan of Treatment Planned Activity Comments Planned Date Planned Time Plan/Goal CBC with Auto 05/15/2018 12:00 AM Medications Active Name Start Date [...] 09/19/2015 12:00 AM Decadron, Per 1 Mg [facility]# [address]-80 Reviewed 09/19/2015 12:00 AM Depo-Medrol, Per 80 Mg [facility]#[address]-33 Reviewed 10/21/2015 12:[address] MAXILLOFACIAL W/O [...] 04/17/2018 12:00 AM Prostate Cancer Screening Returned 06/25/2013 12:00 AM ROUTINE VENIPUNCTURE Reviewed 06/25/2013 12:00 AM ASSAY OF TOTAL TESTOSTERONE Reviewed 09/28/2013 12:00 AM THER/PROPH/DIAG INJ SC/IM Reviewed 09/28/2013 12:00 AM Decadron, Per 1 Mg [facility]# [address]-62 Reviewed 09/28/2013 12:00 AM Depo-Medrol, Per 80 Mg [facility]#4544-5593-27 Reviewed 01/29/2014 12:00 AM COMPLETE CBC W/AUTO [...] Reviewed 11/17/2010 12:00 AM Depo-Medrol 80 Mg [facility] [id number] Reviewed 11/17/2010 12:00 AM Decadron Inj. per 1mg-[facility] [id number] Reviewed 10/18/2014 12:00 AM COMPLETE CBC W/AUTO DIFF WBC Reviewed 10/18/2014 12:00 AM COMPREHEN METABOLIC PANEL Reviewed 10/18/2014 12:00 AM LIPID PANEL Reviewed 10/18/2014 12:00 AM GLYCOSYLATED HEMOGLOBIN TEST Reviewed 10/18/2014 12:00 AM ASSAY THYROID STIM HORMONE Reviewed 10/18/2014 12:00 AM VITAMIN B-12 Reviewed 10/18/2014 12:00 AM ASSAY OF TOTAL TESTOSTERONE Reviewed 12/27/2014 12:00 AM Rocephin 1 gram [facility]#7964-2831-03 Reviewed 02/28/2015 12:00 AM Decadron, Per 1 Mg [facility]# [address]-66 Reviewed 02/28/2015 12:00 AM Depo-Medrol 40mg Reviewed [...] 5.54 HGB 17.20 g/dLHCT 47.30 %MCV 85.0 fLH 31.0 pgHC 36.40 g/dLRDW SD 38 RDW CV 12.30 [...] and anxiety Jul 03 2010 9:51AM Fatigue Apr 1 2011 10:45AM Sinusitis, Acute Nov 17 2010 10:45AM [...] 2018 8:33AM Leukocytosis Apr 18 2018 10:26AM Payers Insurance Name Company Name Plan Name Plan Number Policy Number Policy Group Number Start Date [employer] [place] [id number] Monday, 2013 [employer] [place] [id number] Monday, 2009 [employer] [place] [id number] Saturday, 2013 History of Encounters Visit Date Visit Type Provider 04/17/2018 Office visit Hayder Encinas MD 11/05/2017 Office visit Shantell Freed DIRECTOR TRADE 09/12/2017 Office visit Hayder Encinas MD 08/29/2017 Office visit Hayder Encinas MD 08/15/2017 Office visit Hayder Encinas MD 04/16/2017 Office visit Hayder Encinas MD 12/07/2016 Laboratory Trinidad Goldberg MD 04/06/2016 Office visit Hayder Encinas MD 10/21/2015 Office visit Frank Rojas DIRECTOR TRADE 09/19/2015 Office visit Hayder Encinas MD 07/29/2015 Office visit Hayder Encinas MD 02/28/2015 Office visit Hayder Encinas MD 12/27/2014 Office visit Hayder Encinas MD 10/18/2014 Office visit 10/18/2014 Office visit Hayder Encinas MD 07/09/2014 Office visit Hayder Encinas MD 04/15/2014 [facility] Celso Luke MD 04/06/2014 Office visit Celso Luke MD 03/30/2014 Office visit Hayder Encinas MD 02/11/2014 Office visit Hayder Encinas MD 01/29/2014 Office visit Hayder Encinas MD 09/28/2013 Office visit Tessa Bloom DIRECTOR TRADE 07/08/2013 Office visit Hayder Encinas MD 12/05/2012 Office visit Chanda Tomlinson DIRECTOR TRADE 04/24/2012 Office visit Hayder Encinas MD 10/02/2011 Office visit Hayder Encinas MD 09/19/2011 Office visit Hayder Encinas MD 09/07/2011 Office visit Hayder Encinas MD 08/23/2011 Office visit Hayder Encinas MD 05/29/2011 Office visit Tessa Bloom APRN 11/17/2010 Office visit Hayder Encinas MD 07/03/2010 Office visit Hayder Encinas MD 09/07/2009 Office visit Hayder Encinas MD
--- OUTSIDE RECORDS SUMMARY | 2018-12-12 06:59 | XMS REPORT ---
Author Author Hayder Encinas [facility] Address [address] [place], [place] [address] Care Team Providers Care Loss Prevention Representative Name Role Phone Hayder Encinas PCP Unavailable Hayder Encinas PreferredProvider Unavailable Allergies and Adverse Reactions Name Reaction Notes PENICILLINS Plan of Treatment Planned Activity Comments Planned Date Planned Time Plan/Goal BMP 04/16/2017 12:00 AM CBC With Auto Differential 04/16/2017 12:00 AM Lipid profile 04/16/2017 12:00 AM Medications Active Name Start Date [...] oral tablet 07/13/2015 TAKE 1 TABLET DAILY pramipexole 0.25 mg oral tablet 07/17/2016 TAKE 1 TABLET 2 TO 3 HOURS BEFORE BEDTIME citalopram 20 mg oral tablet 10/01/2016 TAKE 1 TABLET DAILY Name Start Date Expiration Date SIG Comments [...] 2-3 hours before bedtime for 30 days Discontinued Name Start Date Discontinued Date [...] each nostril by intranasal route once daily Problem List Description Status Onset Depression Active Restless Leg Syndrome Active Testosterone deficiency Active Vital Signs Date Time BP-Sys(mm[Hg] BP-Ofe(mm[Hg]) HR(bpm) RR(rpm) Temp WT HT HC BMI BSA BMI Percentile O2 Sat(%) 04/16/2017 8:45:00 AM 134 mmHg 86 mmHg [...] rpm 97 F 203 lbs 70 in 29.13 kg/m2 2.13 m2 Social History Name Description Comments denies alcohol use Lives with spouse Tobacco Never smoker History of Procedures Date Ordered Description Order Status 07/29/2015 12:00 AM COMPLETE CBC W/AUTO DIFF WBC Reviewed 07/29/2015 12:00 AM COMPREHEN METABOLIC PANEL Reviewed 07/29/2015 12:00 AM GLYCOSYLATED HEMOGLOBIN TEST Reviewed 07/29/2015 12:00 AM CHEST X-RAY 2VW FRONTAL&LATL Reviewed 09/19/2015 12:00 AM Decadron, Per 1 Mg [facility]# [address]-39 Reviewed 09/19/2015 12:00 AM Depo-Medrol, Per 80 Mg [facility]#[address]-00 Reviewed 10/21/2015 12:[address] MAXILLOFACIAL W/O [...] 12:00 AM ASSAY OF TOTAL TESTOSTERONE Reviewed 12/05/2012 12:00 AM X-RAY EXAM KNEE 4 [...] 09/28/2013 12:00 AM Decadron, Per 1 Mg [facility]# [address]-28 Reviewed 09/28/2013 12:00 AM Depo-Medrol, Per 80 Mg [facility]#5696-0608-60 Reviewed 01/29/2014 12:00 AM COMPLETE CBC W/AUTO [...] Reviewed 11/17/2010 12:00 AM Depo-Medrol 80 Mg [facility] [id number] Reviewed 11/17/2010 12:00 AM Decadron Inj. per 1mg-[facility] [id number] Reviewed 10/18/2014 12:00 AM COMPLETE CBC W/AUTO DIFF WBC Reviewed 10/18/2014 12:00 AM COMPREHEN METABOLIC PANEL Reviewed 10/18/2014 12:00 AM LIPID PANEL Reviewed 10/18/2014 12:00 AM GLYCOSYLATED HEMOGLOBIN TEST Reviewed 10/18/2014 12:00 AM ASSAY THYROID STIM HORMONE Reviewed 10/18/2014 12:00 AM VITAMIN B-12 Reviewed 10/18/2014 12:00 AM ASSAY OF TOTAL TESTOSTERONE Reviewed 12/27/2014 12:00 AM Rocephin 1 gram [facility]#0444-8542-93 Reviewed 02/28/2015 12:00 AM Decadron, Per 1 Mg [facility]# [address]-78 Reviewed 02/28/2015 12:00 AM Depo-Medrol 40mg Reviewed [...] 5.05 HGB 15.90 g/dLHCT 44.20 %MCV 88.0 [facility] 36.[facility] g/dLRDW SD 40 RDW CV 12.80 [...] For Prostate Cancer Apr 16 2017 8:46AM Payers Insurance Name Company Name Plan Name Plan Number Policy Number Policy Group Number Start Date [employer] [place] [id number] Monday, 2013 [employer] [place] [id number] Monday, 2009 [employer] [place] [id number] Saturday, 2013 History of Encounters Visit Date Visit Type Provider 04/16/2017 Office visit Hayder Encinas MD 12/07/2016 Laboratory Trinidad Goldberg MD 04/06/2016 Office visit Hayder Encinas MD 10/21/2015 Office visit Frank Rojas APRN 09/19/2015 Office visit Hayder Encinas MD 07/29/2015 Office visit Hayder Encinas MD 02/28/2015 Office visit Hayder Encinas MD 12/27/2014 Office visit Hayder Encinas MD 10/18/2014 Office visit 10/18/2014 Office visit Hayder Encinas MD 07/09/2014 Office visit Hayder Encinas MD 04/15/2014 [facility] Celso Luke MD 04/06/2014 Office visit Celso Luke MD 03/30/2014 Office visit Hayder Encinas MD 02/11/2014 Office visit Hayder Encinas MD 01/29/2014 Office visit Hayder Encinas MD 09/28/2013 Office visit Tessa Bloom WHOLESALE BUYER 07/08/2013 Office visit Hayder Encinas MD 12/05/2012 Office visit Chanda Tomlinson WHOLESALE BUYER 04/24/2012 Office visit Hayder Encinas MD 10/02/2011 Office visit Hayder Encinas MD 09/19/2011 Office visit Hayder Encinas MD 09/07/2011 Office visit Hayder Encinas MD 08/23/2011 Office visit Hayder Encinas MD 05/29/2011 Office visit Tessa Bloom WHOLESALE BUYER 11/17/2010 Office visit Hayder Encinas MD 07/03/2010 Office visit Hayder Encinas MD 09/07/2009 Office visit Hayder Encinas MD
--- OUTSIDE RECORDS SUMMARY | 2018-12-12 07:00 | XMS REPORT ---
Author Author Hayder Encinas [facility] Address [address] [place], [place] [phone] Care Team Providers Care Electric Tripper Machine Operator Name Role Phone Hayder Encinas PCP Hayder Encinas PreferredProvider Allergies and Adverse Reactions Name Reaction Notes PENICILLINS Plan of Treatment Not available. Medications Active Name Start Date Estimated Completion [...] oral tablet 07/13/2015 TAKE 1 TABLET DAILY citalopram 20 mg oral tablet 10/01/2016 TAKE 1 TABLET DAILY lisinopril-hydrochlorothiazide 10-12.5 mg oral tablet 08/26/2017 09/25/2017 take 1/2 tablet by oral route once daily for 30 days Bactrim DS 800-160 mg oral tablet 09/12/2017 09/19/2017 take 1 tablet by oral route every 12 hours for 7 days Name Start Date Expiration Date SIG [...] TABLET 2 TO 3 HOURS BEFORE BEDTIME Discontinued Name Start Date Discontinued Date SIG [...] HC BMI BSA BMI Percentile O2 Sat(%) 09/12/2017 9:47:00 AM 158 mmHg 94 mmHg [...] rpm 98 F 206 lbs 70 in 29.5576 kg/m 2.1482 m 04/06/2014 11:16:00 AM 132 mmHg 76 mmHg 59 bpm 16 rpm 97.4 F 192 lbs 70 in 27.55 kg/m2 2.07 m2 97 % 03/30/2014 10:56:00 AM 120 mmHg 82 mmHg 60 bpm 18 rpm 97.4 F 196 lbs 70 in 28.1228 kg/m 2.0954 m 02/11/2014 9:25:00 AM 118 mmHg 72 mmHg 72 bpm 18 rpm 98 F 201 lbs 70 in 28.84 kg/m2 2.12 m2 01/29/2014 9:40:00 AM 120 mmHg 82 mmHg 64 bpm 18 rpm 98 F 201 lbs 70 in 28.8402 kg/m 2.122 m 09/28/2013 2:10:00 PM 132 mmHg 64 mmHg 77 bpm 18 rpm 97.6 F 208.125 lbs 70 in 29.86 kg/m2 2.16 m2 98 % 07/08/2013 8:18:00 AM 130 mmHg 82 mmHg 78 bpm 18 rpm 97.6 F 205 lbs 70 in 29.4141 kg/m 2.143 m 12/05/2012 8:11:00 AM 130 mmHg 78 mmHg 64 bpm 18 rpm 87.5 F 201.4 lbs 70 in 28.90 kg/m2 2.12 m2 99 % 04/24/2012 10:46:00 AM 124 mmHg 72 mmHg 72 bpm 18 rpm 97.8 F 200 lbs 70 in 28.6967 kg/m 2.1167 m 10/02/2011 9:44:00 AM 132 mmHg 80 mmHg 64 bpm 20 rpm 97.4 F 196 lbs 70 in 28.12 kg/m2 2.10 m2 09/19/2011 10:44:00 AM 128 mmHg 72 mmHg 80 bpm 20 rpm 98.9 F 198 lbs 70 in 28.4098 kg/m 2.1061 m 09/07/2011 10:59:00 AM 134 mmHg 82 mmHg 72 bpm 18 rpm 97.8 F 198 lbs 70 in 28.41 kg/m2 2.11 m2 08/23/2011 1:55:00 PM 142 mmHg 74 mmHg 64 bpm 18 rpm 97.8 F 198 lbs 70 in 28.4098 kg/m 2.1061 m 05/29/2011 11:20:00 AM 122 mmHg 62 mmHg 66 bpm 18 rpm 98.3 F 195.375 lbs 70 in 28.03 kg/m2 2.09 m2 11/17/2010 10:41:00 AM 130 mmHg [...] Per 1 Mg [facility]# [address]-64 Reviewed 09/19/2015 12:00 AM Depo-Medrol, Per 80 Mg [facility]#[address]-80 Reviewed 10/21/2015 12:[address] MAXILLOFACIAL W/O [...] 04/16/2017 12:00 AM Prostate Cancer Screening Returned 12/05/2012 12:00 AM X-RAY EXAM KNEE [...] Per 1 Mg [facility]# [address]-94 Reviewed 09/28/2013 12:00 AM Depo-Medrol, Per 80 Mg [facility]#5331-5656-37 Reviewed 01/29/2014 12:00 AM COMPLETE CBC W/AUTO [...] Depo-Medrol 80 Mg [facility] [id number] Reviewed 11/17/2010 12:00 AM Decadron Inj. per 1mg-[facility] [id number] Reviewed 10/18/2014 12:00 AM COMPLETE CBC W/AUTO DIFF WBC Reviewed 10/18/2014 12:00 AM COMPREHEN METABOLIC PANEL Reviewed 10/18/2014 12:00 AM LIPID PANEL Reviewed 10/18/2014 12:00 AM GLYCOSYLATED HEMOGLOBIN TEST Reviewed 10/18/2014 12:00 AM ASSAY THYROID STIM HORMONE Reviewed 10/18/2014 12:00 AM VITAMIN B-12 Reviewed 10/18/2014 12:00 AM ASSAY OF TOTAL TESTOSTERONE Reviewed 12/27/2014 12:00 AM Rocephin 1 gram [facility]#6899-9704-11 Reviewed 02/28/2015 12:00 AM Decadron, Per 1 Mg [facility]# [address]-21 Reviewed 02/28/2015 12:00 AM Depo-Medrol 40mg Reviewed [...] 9:49AM Unsteady gait Sep 12 2017 9:49AM Payers Insurance Name Company Name Plan Name Plan Number Policy Number Policy Group Number Start Date [employer] [place] [id number] Monday, 2013 [employer] [place] [id number] Monday, 2009 [employer] [place] [id number] Saturday, 2013 History of Encounters Visit Date Visit Type Provider 09/12/2017 Office visit Hayder Encinas MD 08/29/2017 [...] 07/09/2014 Office visit Hayder Encinas MD 04/15/2014 [facility] Celso Luke MD 04/06/2014 Office visit Celso Luke MD 03/30/2014 Office visit Hayder Encinas MD 02/11/2014 Office visit Hayder Encinas MD 01/29/2014 Office visit Hayder Encinas MD 09/28/2013 Office visit Tessa Bloom APRN 07/08/2013 Office visit Hayder Encinas MD 12/05/2012 Office visit Chanda Tomlinson BEER COOLER 04/24/2012 Office visit Hayder Encinas MD 10/02/2011 Office visit Hayder Encinas MD 09/19/2011 Office visit Hayder Encinas MD 09/07/2011 Office visit Hayder Encinas MD 08/23/2011 Office visit Hayder Encinas MD 05/29/2011 Office visit Tessa Bloom APRN 11/17/2010 Office visit Hayder Encinas MD 07/03/2010 Office visit Hayder Encinas MD 09/07/2009 Office visit Hayder Encinas MD
--- OUTSIDE RECORDS SUMMARY | 2018-12-12 07:01 | XMS REPORT ---
Author Author Shantell Freed [facility] Address [address] [place], [place] [id number] Care Team Providers Care Proofer Name Role Phone Shantell Freed PCP Hayder Encinas PreferredProvider Allergies and Adverse [...] HC BMI BSA BMI Percentile O2 Sat(%) 11/05/2017 6:12:00 PM 142 mmHg 86 mmHg [...] F 207.5 lbs 70 in 29.77 kg/m2 2.156 m 97 % 04/06/2016 8:31:00 AM 126 mmHg 68 mmHg 60 bpm 19 rpm 97.7 F 233.8 lbs 70 in 33.5465 kg/m 2.29 m2 99 % 10/21/2015 9:01:00 AM 110 mmHg 70 mmHg 77 bpm 20 rpm 98.9 F 200 lbs 70 in 28.70 kg/m2 2.1167 m 99 % 09/19/2015 11:02:00 AM 124 mmHg 72 mmHg 85 bpm 18 rpm 98.4 F 201 lbs 70 in 28.8402 kg/m 2.12 m2 96 % 07/29/2015 9:15:00 AM 138 mmHg 82 mmHg 74 bpm 18 rpm 97.6 F 207 lbs 70 in 29.70 kg/m2 2.1534 m 95 % 02/28/2015 10:20:00 AM 128 mmHg 82 mmHg 83 bpm 20 rpm 98 F 205.125 lbs 70 in 29.4321 kg/m 2.14 m2 94 % 12/27/2014 1:58:00 PM 13 mmHg 86 mmHg 72 bpm 18 rpm 98 F 207 lbs 70 in 29.70 kg/m2 2.1534 m 10/18/2014 9:04:00 AM 134 mmHg 82 mmHg 60 bpm 18 rpm 97.7 F 204 lbs 70 in 29.2707 kg/m 2.14 m2 07/09/2014 9:16:00 AM 134 mmHg [...] 09/19/2015 12:00 AM Decadron, Per 1 Mg [facility]# [address]-90 Reviewed 09/19/2015 12:00 AM Depo-Medrol, Per 80 Mg [facility]#[address]-40 Reviewed 10/21/2015 12:[address] MAXILLOFACIAL W/O [...] 09/28/2013 12:00 AM Decadron, Per 1 Mg [facility]# [address]-68 Reviewed 09/28/2013 12:00 AM Depo-Medrol, Per 80 Mg [facility]#4506-4949-07 Reviewed 01/29/2014 12:00 AM COMPLETE CBC W/AUTO [...] Reviewed 11/17/2010 12:00 AM Depo-Medrol 80 Mg [facility] [id number] Reviewed 11/17/2010 12:00 AM Decadron Inj. per 1mg-[facility] [id number] Reviewed 10/18/2014 12:00 AM COMPLETE CBC W/AUTO DIFF WBC Reviewed 10/18/2014 12:00 AM COMPREHEN METABOLIC PANEL Reviewed 10/18/2014 12:00 AM LIPID PANEL Reviewed 10/18/2014 12:00 AM GLYCOSYLATED HEMOGLOBIN TEST Reviewed 10/18/2014 12:00 AM ASSAY THYROID STIM HORMONE Reviewed 10/18/2014 12:00 AM VITAMIN B-12 Reviewed 10/18/2014 12:00 AM ASSAY OF TOTAL TESTOSTERONE Reviewed 12/27/2014 12:00 AM Rocephin 1 gram [facility]#9451-3393-81 Reviewed 02/28/2015 12:00 AM Decadron, Per 1 Mg [facility]# [address]-73 Reviewed 02/28/2015 12:00 AM Depo-Medrol 40mg Reviewed [...] 10:41AM Essential hypertension Nov 05 2017 6:15PM Payers Insurance Name Company Name Plan Name Plan Number Policy Number Policy Group Number [id number], 2013 [employer]BS [employer] [place] [id number] Monday, 2009 [employer] [place] [id number] Saturday, 2013 History of Encounters Visit Date Visit Type Provider 11/05/2017 Office visit Shantell Freed CLAIMS CUSTOMER SERVICE REPRESENTATIVE 09/12/2017 Office visit Hayder Encinas MD 08/29/2017 Office visit Hayder Encinas MD 08/15/2017 Office visit Hayder Encinas MD 04/16/2017 Office visit Hayder Encinas MD 12/07/2016 Laboratory Trinidad Goldberg MD 04/06/2016 Office visit Hayder Encinas MD 10/21/2015 Office visit Frank Rojas CLAIMS CUSTOMER SERVICE REPRESENTATIVE 09/19/2015 Office visit Hayder Encinas MD 07/29/2015 Office visit Hayder Encinas MD 02/28/2015 Office visit Hayder Encinas MD 12/27/2014 Office visit Hayder Encinas MD 10/18/2014 Office visit 10/18/2014 Office visit Hayder Encinas MD 07/09/2014 Office visit Hayder Encinas MD 04/15/2014 [facility] Celso Luke MD 04/06/2014 Office visit Celso Luke MD 03/30/2014 Office visit Hayder Encinas MD 02/11/2014 Office visit Hayder Encinas MD 01/29/2014 Office visit Hayder Encinas MD 09/28/2013 Office visit Tessa Bloom CLAIMS CUSTOMER SERVICE REPRESENTATIVE 07/08/2013 Office visit Hayder Encinas MD 12/05/2012 Office visit Chanda Tomlinson CLAIMS CUSTOMER SERVICE REPRESENTATIVE 04/24/2012 Office visit Hayder Encinas MD 10/02/2011 Office visit Hayder Encinas MD 09/19/2011 Office visit Hayder Encinas MD 09/07/2011 Office visit Hayder Encinas MD 08/23/2011 Office visit Hayder Encinas MD 05/29/2011 Office visit Tessa Bloom CLAIMS CUSTOMER SERVICE REPRESENTATIVE 11/17/2010 Office visit Hayder Encinas MD 07/03/2010 Office visit Hayder Encinas MD 09/07/2009 Office visit Hayder Encinas MD
--- OUTSIDE RECORDS SUMMARY | 2018-12-12 07:02 | XMS REPORT ---
Author Author Hayder Encinas [facility] Address [address] [place], [place] [address] Care Team Providers Care Roads Supervisor Name Role Phone Hayder Encinas PCP Hayder Encinas PreferredProvider Allergies and Adverse Reactions Name Reaction Notes PENICILLINS Plan of Treatment Planned Activity Comments Planned Date Planned Time Plan/Goal MRI BRAIN INC STEM W/WO CONTRAST 09/12/2017 12:00 AM Medications Active Name Start Date [...] by oral route 2-3 hours before bedtime Aylsa-D 12 Hour 60-120 mg oral tablet extended [...] 09/19/2015 12:00 AM Decadron, Per 1 Mg [facility]# [address]-85 Reviewed 09/19/2015 12:00 AM Depo-Medrol, Per 80 Mg [facility]#[address]-63 Reviewed 10/21/2015 12:[address] MAXILLOFACIAL W/O [...] 09/28/2013 12:00 AM Decadron, Per 1 Mg [facility]# [address]-98 Reviewed 09/28/2013 12:00 AM Depo-Medrol, Per 80 Mg [facility]#7588-0122-00 Reviewed 01/29/2014 12:00 AM COMPLETE CBC W/AUTO [...] Reviewed 11/17/2010 12:00 AM Depo-Medrol 80 Mg [facility] [id number] Reviewed 11/17/2010 12:00 AM Decadron Inj. per 1mg-[facility] [id number] Reviewed 10/18/2014 12:00 AM COMPLETE CBC W/AUTO DIFF WBC Reviewed 10/18/2014 12:00 AM COMPREHEN METABOLIC PANEL Reviewed 10/18/2014 12:00 AM LIPID PANEL Reviewed 10/18/2014 12:00 AM GLYCOSYLATED HEMOGLOBIN TEST Reviewed 10/18/2014 12:00 AM ASSAY THYROID STIM HORMONE Reviewed 10/18/2014 12:00 AM VITAMIN B-12 Reviewed 10/18/2014 12:00 AM ASSAY OF TOTAL TESTOSTERONE Reviewed 12/27/2014 12:00 AM Rocephin 1 gram [facility]#4860-5707-28 Reviewed 02/28/2015 12:00 AM Decadron, Per 1 Mg [facility]# [address]-50 Reviewed 02/28/2015 12:00 AM Depo-Medrol 40mg Reviewed [...] 2:55PM Unsteady gait Sep 12 2017 2:55PM Payers Insurance Name Company Name Plan Name Plan Number Policy Number Policy Group Number Start Date [employer] [place] [id number] Monday, 2013 [employer] [place] [id number] Monday, 2009 [employer] [place] [id number] Saturday, 2013 History of Encounters Visit Date Visit Type Provider 09/12/2017 Office visit Hayder Encinas MD 08/29/2017 Office visit Hayder Encinas MD 08/15/2017 Office visit Hayder Encinas MD 04/16/2017 Office visit Hayder Encinas MD 12/07/2016 Laboratory W Kenan Goldberg MD 04/06/2016 Office visit Hayder Encinas [...] visit Hayder Encinas MD 02/11/2014 Office visit Hayedr Encinas MD 01/29/2014 Office visit Hayder Encinas MD 09/28/2013 Office visit Tessa Bloom APRN 07/08/2013 Office visit Hayder Encinas MD 12/05/2012 Office visit Chanda Tomlinson BANK CONSULTANT 04/24/2012 Office visit Hayder Encinas MD 10/02/2011 Office visit Hayder Encinas MD 09/19/2011 Office visit Hayder Encinas MD 09/07/2011 Office visit Hayder Encinas MD 08/23/2011 Office visit Hayder Encinas MD 05/29/2011 Office visit Tessa Bloom APRN 11/17/2010 Office visit Hayder Encinas MD 07/03/2010 Office visit Hayder Encinas MD 09/07/2009 Office visit Hayder Encinas MD
--- OUTSIDE RECORDS SUMMARY | 2018-12-12 07:03 | XMS REPORT ---
Author Author Hayder Encinas [facility] Address [address] [place], [place] [id number] Care Team Providers Care Correctional Food Service Supervisor Name Role Phone Hayder Encinas PCP Hayder Encinas PreferredProvider Allergies and Adverse Reactions Name Reaction Notes PENICILLINS Plan of Treatment Planned Activity Comments Planned Date Planned Time Plan/Goal MRI BRAIN INC STEM W/WO CONTRAST 09/12/2017 12:00 AM BMP 09/16/2017 12:00 AM Medications Active Name Start Date [...] 09/19/2015 12:00 AM Decadron, Per 1 Mg [facility]# [address]-76 Reviewed 09/19/2015 12:00 AM Depo-Medrol, Per 80 Mg [facility]#[address]-67 Reviewed 10/21/2015 12:[address] MAXILLOFACIAL W/O [...] 09/28/2013 12:00 AM Decadron, Per 1 Mg [facility]# [address]-47 Reviewed 09/28/2013 12:00 AM Depo-Medrol, Per 80 Mg [facility]#3699-0223-58 Reviewed 01/29/2014 12:00 AM COMPLETE CBC W/AUTO [...] Reviewed 11/17/2010 12:00 AM Depo-Medrol 80 Mg [facility] [id number] Reviewed 11/17/2010 12:00 AM Decadron Inj. per 1mg-[facility] [id number]-Snufcztke Reviewed 10/18/2014 12:00 AM COMPLETE CBC W/AUTO DIFF WBC Reviewed 10/18/2014 12:00 AM COMPREHEN METABOLIC PANEL Reviewed 10/18/2014 12:00 AM LIPID PANEL Reviewed 10/18/2014 12:00 AM GLYCOSYLATED HEMOGLOBIN TEST Reviewed 10/18/2014 12:00 AM ASSAY THYROID STIM HORMONE Reviewed 10/18/2014 12:00 AM VITAMIN B-12 Reviewed 10/18/2014 12:00 AM ASSAY OF TOTAL TESTOSTERONE Reviewed 12/27/2014 12:00 AM Rocephin 1 gram [facility]#2218-5990-94 Reviewed 02/28/2015 12:00 AM Decadron, Per 1 Mg [facility]# [address]-39 Reviewed 02/28/2015 12:00 AM Depo-Medrol 40mg Reviewed [...] Blurred vision, bilateral Sep 16 2017 10:41AM Payers Insurance Name Company Name Plan Name Plan Number Policy Number Policy Group Number Start Date BCBS [facility] [id number] Monday, 2013 BCBS [employer] [place] [id number] Monday, 2009 [employer]BS [employer] [place] [id number] Saturday, 2013 History of Encounters Visit Date [...] 07/09/2014 Office visit Hayder Encinas MD 04/15/2014 Hospital Celso Luke MD 04/06/2014 Office visit Celso Luke MD 03/30/2014 Office visit Hayder Encinas MD 02/11/2014 Office visit Hayder Encinas MD 01/29/2014 Office visit Hayder Encinas MD 09/28/2013 Office visit Tessa Bloom TIGER MACHINE OPERATOR 07/08/2013 Office visit Hayder Encinas MD 12/05/2012 Office visit Chanda Tomlisnon TIGER MACHINE OPERATOR 04/24/2012 Office visit Hayder Encinas MD 10/02/2011 Office visit Hayder Encinas MD 09/19/2011 Office visit Hayder Encinas MD 09/07/2011 Office visit Hayder Encinas MD 08/23/2011 Office visit Hayder Encinas MD 05/29/2011 Office visit Tessa Bloom APRN 11/17/2010 Office visit Hayder Encinas MD 07/03/2010 Office visit Hayder Encinas MD 09/07/2009 Office visit Hayder Encinas MD
--- OUTSIDE RECORDS SUMMARY | 2018-12-12 07:05 | XMS REPORT ---
Author Author Hayder Encinas [facility] Address [address] [place], [place] [address] Care Team Providers Care Prosthetist Name Role Phone Hayder Encinas PCP Unavailable Allergies and Adverse Reactions Name Reaction Notes PENICILLINS Plan of Treatment Planned Activity Comments Planned Date Planned Time Plan/Goal COMPLETE CBC W/AUTO DIFF WBC 04/06/2016 12:00 AM LIPID PANEL 04/06/2016 12:00 AM Medications Active Name Start Date [...] tablet 07/13/2015 TAKE 1 TABLET DAILY pramipexole 0.125 mg oral tablet 04/03/2016 TAKE ONE TABLET 2 TO 3 HOURS BEFORE BEDTIME Name Start Date Expiration Date SIG Comments [...] oral route once daily for 30 days Discontinued Name Start Date [...] HC BMI BSA BMI Percentile O2 Sat(%) 04/06/2016 8:31:00 AM 126 mmHg 68 mmHg [...] 09/19/2015 12:00 AM Decadron, Per 1 Mg [facility]# [address]-69 Reviewed 09/19/2015 12:00 AM Depo-Medrol, Per 80 Mg [facility]#[address]-83 Reviewed 10/21/2015 12:[address] MAXILLOFACIAL W/O DYE Returned 08/23/2011 12:00 AM SHAVE SKIN LESION 0.6-1.0 CM Reviewed 09/19/2011 12:00 AM COMPLETE CBC W/AUTO DIFF WBC Reviewed 09/19/2011 12:00 AM COMPREHEN METABOLIC PANEL Reviewed 09/19/2011 12:00 AM CHEST X-RAY 2VW FRONTAL&LATL Reviewed 10/02/2011 12:00 AM BREATHING CAPACITY TEST Reviewed 04/24/2012 12:00 AM COMPLETE CBC W/AUTO DIFF WBC Reviewed 04/24/2012 12:00 AM COMPREHEN METABOLIC PANEL Reviewed 04/24/2012 12:00 AM LIPID PANEL Reviewed 04/24/2012 12:00 AM ASSAY OF TOTAL TESTOSTERONE Reviewed 12/05/2012 12:00 AM X-RAY EXAM KNEE 4 OR MORE Returned 12/05/2012 12:00 AM Cbc With Auto Differential % Returned 12/05/2012 12:00 AM COMPREHEN METABOLIC PANEL Returned 12/05/2012 12:00 AM LIPID PANEL Returned 12/05/2012 12:00 AM VIT B-12 ABSORP COMBINED Returned 12/05/2012 12:00 AM ASSAY THYROID STIM HORMONE Returned 12/05/2012 12:00 AM ASSAY OF TOTAL TESTOSTERONE Returned 06/25/2013 12:00 AM ASSAY OF TOTAL TESTOSTERONE Reviewed 09/28/2013 12:00 AM THER/PROPH/DIAG INJ SC/IM Reviewed 09/28/2013 12:00 AM Decadron, Per 1 Mg [facility]# [address]-29 Reviewed 09/28/2013 12:00 AM Depo-Medrol, Per 80 Mg [facility]#2883-1254-97 Reviewed 01/29/2014 12:00 AM COMPLETE CBC W/AUTO [...] Reviewed 11/17/2010 12:00 AM Depo-Medrol 80 Mg [facility] [id number] Reviewed 11/17/2010 12:00 AM Decadron Inj. per 1mg-[facility] [id number] Reviewed 10/18/2014 12:00 AM COMPLETE CBC W/AUTO DIFF WBC Reviewed 10/18/2014 12:00 AM COMPREHEN METABOLIC PANEL Reviewed 10/18/2014 12:00 AM LIPID PANEL Reviewed 10/18/2014 12:00 AM GLYCOSYLATED HEMOGLOBIN TEST Reviewed 10/18/2014 12:00 AM ASSAY THYROID STIM HORMONE Reviewed 10/18/2014 12:00 AM VITAMIN B-12 Reviewed 10/18/2014 12:00 AM ASSAY OF TOTAL TESTOSTERONE Reviewed 12/27/2014 12:00 AM Rocephin 1 gram [facility]#6262-3273-10 Reviewed 02/28/2015 12:00 AM Decadron, Per 1 Mg [facility]# [address]-71 Reviewed 02/28/2015 12:00 AM Depo-Medrol 40mg Reviewed Results Summary Data and Description Results 11/17/2010 11:55 AM PSA TOTAL 1.530 ng/mLTSH 1.770 uIU/mLGLUCOSE 97.0 mg/ dLSODIUM 138.0 mmol/LPOTASSIUM 4.60 mmol/LCHLORIDE 101.0 mmol/LCO2 25.0 mmol/ LBUN 11.0 mg/dLCREATININE 0.90 mg/dLSGOT/AST 44.0 IU/LSGPT/ALT 54.0 IU/LALK PHOS 86.0 IU/LTOTAL PROTEIN 8.0 g/dLALBUMIN 4.70 g/dLTOTAL BILI 0.70 mg/ dLCALCIUM 9.70 mg/dLeGFR >60 mL/min/1.73 m2WBC 5.9 RBC 5.29 HGB 16.50 g/dLHCT 45.30 %MCV 86.0 fLMCH 31.20 pgMCHC 36.40 g/dLRDW CV 12.30 %MPV 9.90 fLPLT 230 % NEUT 57.40 %%LYMP 24.80 %%MONO 13.20 %%EOS 3.90 %%BASO 0.70 %#NEUT 3.38 #LYMP 1.46 #MONO 0.78 #EOS 0.23 #BASO 0.04 09/19/2011 12:10 PM WBC 12.4 RBC 4.80 HGB 14.80 g/dLHCT 41.50 %MCV 87.0 fLMCH 30.80 pgMCHC 35.70 g/dLRDW CV 12.80 %MPV 9.40 fLPLT 217 %NEUT 63.50 %%LYMP 16.70 %%MONO 15.10 %%EOS 4.10 %%BASO 0.60 %#NEUT 7.88 #LYMP 2.08 #MONO 1.88 # EOS 0.51 #BASO 0.07 GLUCOSE 69.0 mg/dLSODIUM 135.0 mmol/LPOTASSIUM 4.20 mmol/ LCHLORIDE 101.0 mmol/LCO2 26.0 mmol/LBUN 12.0 mg/dLCREATININE 1.0 mg/dLSGOT/AST 24.0 IU/LSGPT/ALT 25.0 IU/LALK PHOS 80.0 IU/LTOTAL PROTEIN 7.0 g/dLALBUMIN 4.40 g/dLTOTAL BILI 0.80 mg/dLCALCIUM 9.70 mg/dLeGFR >60 mL/min/1.73 m2 06/12/2012 9:00 AM WBC 10.3 RBC 5.54 HGB 17.20 g/dLHCT 47.30 %MCV 85.0 fLMCH 31.0 pgMCHC 36.40 g/dLRDW CV 12.30 %MPV 9.60 fLPLT 282 %NEUT 55.70 %%LYMP 30.90 %%MONO 8.70 %%EOS 4.10 %%BASO 0.60 %#NEUT 5.74 #LYMP 3.18 #MONO 0.90 #EOS 0.42 # BASO 0.06 GLUCOSE 96.0 mg/dLSODIUM 139.0 mmol/LPOTASSIUM 4.30 mmol/LCHLORIDE 105.0 mmol/LCO2 27.0 mmol/LBUN 20.0 mg/dLCREATININE 1.0 mg/dLSGOT/AST 34.0 IU/ LSGPT/ALT 40.0 IU/LALK PHOS 75.0 IU/LTOTAL PROTEIN 7.80 g/dLALBUMIN 4.60 g/ dLTOTAL BILI 1.10 mg/dLCALCIUM 10.10 mg/dLeGFR 60 TRIGLYCERIDES 109.0 mg/ dLCHOLESTEROL 176.0 mg/dLHDL 46.0 mg/dLLDL (CALC) 108.0 mg/dLPSA TOTAL 1.910 ng/ mL 12/05/2012 9:10 AM WBC 7.7 RBC 5.37 HGB 16.80 g/dLHCT 45.60 %MCV 85.0 fLMCH 31.30 pgMCHC 36.80 g/dLRDW CV 12.60 %MPV 9.60 fLPLT 255 %NEUT 62.30 %%LYMP 27.40 %%MONO 6.10 %%EOS 3.60 %%BASO 0.60 %#NEUT 4.79 #LYMP 2.11 #MONO 0.47 #EOS 0.28 #BASO 0.05 GLUCOSE 97.0 mg/dLSODIUM 141.0 mmol/LPOTASSIUM 4.80 mmol/ LCHLORIDE 105.0 mmol/LCO2 26.0 mmol/LBUN 14.0 mg/dLCREATININE 1.0 mg/dLSGOT/AST 26.0 IU/LSGPT/ALT 31.0 IU/LALK PHOS 82.0 IU/LTOTAL PROTEIN 7.60 g/dLALBUMIN 4.50 g/dLTOTAL BILI 0.90 mg/dLCALCIUM 10.10 mg/dLeGFR 60 TRIGLYCERIDES 96.0 mg/ dLCHOLESTEROL 157.0 mg/dLHDL 48.0 mg/dLLDL (CALC) 90.0 mg/dLTSH 1.670 uIU/ mLVITAMIN B12 452.0 pg/mL 06/30/2013 8:10 AM PSA TOTAL 1.830 ng/mLTESTOSTERONE 386.0 ng/dL 01/29/2014 11:07 AM WBC 7.3 RBC 5.31 HGB 16.60 g/dLHCT 45.10 %MCV 85.0 fLMCH 31.30 pgMCHC 36.80 g/dLRDW CV 12.90 %MPV 10.10 fLPLT 277 %NEUT 54.90 %%LYMP 31.90 %%MONO 7.90 %%EOS 4.80 %%BASO 0.50 %#NEUT 4.03 #LYMP 2.34 #MONO 0.58 #EOS 0.35 #BASO 0.04 PSA TOTAL 1.970 ng/mLTESTOSTERONE 406.0 ng/dL 10/18/2014 9:45 AM TESTOSTERONE 393.0 ng/dLVITAMIN B12 445.0 pg/mLTSH 1.420 uIU/ mLGLUCOSE 92.0 mg/dLSODIUM 141.0 mmol/LPOTASSIUM 4.40 mmol/LCHLORIDE 105.0 mmol/ LCO2 25.0 mmol/LBUN 12.0 mg/dLCREATININE 0.90 mg/dLSGOT/AST 32.0 IU/LSGPT/ALT 42.0 IU/LALK PHOS 70.0 IU/LTOTAL PROTEIN 7.30 g/dLALBUMIN 4.50 g/dLTOTAL BILI 0.60 mg/dLCALCIUM 10.0 mg/dLeGFR >60 mL/min/1.73 m2WBC 7.9 RBC 5.05 HGB 15.90 g/ dLHCT 44.20 %MCV 88.0 fLMCH 31.50 pgMCHC 36.0 g/dLRDW CV 12.80 %MPV 9.50 fLPLT 255 %NEUT 60.40 %%LYMP 28.20 %%MONO 8.0 %%EOS 2.80 %%BASO 0.60 %#NEUT 4.78 # LYMP 2.23 #MONO 0.63 #EOS 0.22 #BASO 0.05 TRIGLYCERIDES 70.0 mg/dLCHOLESTEROL 150.0 mg/dLHDL 52.0 mg/dLLDL (CALC) 84.0 mg/dLHGB A1C 7.10 %Est Avg Glucose 157.1 mg/dL 07/29/2015 10:06 AM WBC 6.6 RBC 5.07 HGB 15.60 g/dLHCT 43.70 %MCV 86.0 fLH 30.80 pgMCHC 35.70 g/dLRDW CV 12.50 %MPV 9.70 fLPLT 256 %NEUT 56.10 %%LYMP 21.30 %%MONO 14.90 %%EOS 7.40 %%BASO 0.30 %#NEUT 3.69 #LYMP 1.40 #MONO 0.98 # EOS 0.49 #BASO 0.02 GLUCOSE 98.0 mg/dLSODIUM 137.0 mmol/LPOTASSIUM 4.60 mmol/ LCHLORIDE 106.0 mmol/LCO2 23.0 mmol/LBUN 16.0 mg/dLCREATININE 1.10 mg/dLSGOT/ AST 34.0 IU/LSGPT/ALT 37.0 IU/LALK PHOS 85.0 IU/LTOTAL PROTEIN 6.70 g/dLALBUMIN 4.40 g/dLTOTAL BILI 0.80 mg/dLCALCIUM 9.20 mg/dLeGFR >60 mL/min/1.73m Hemoglobin A1c 5.70 % History Of Immunizations Not available. History of [...] Medical Exam, Adult Apr 06 2016 8:34AM Payers Insurance Name Company Name Plan Name Plan Number Policy Number Policy Group Number Start Date [facility] [id number] Monday, 2013 [facility] [id number] Monday, 2009 [facility] [id number] Saturday, 2013 History of Encounters Visit Date Visit Type Provider 04/06/2016 Office visit Hayder Encinas MD 10/21/2015 Office visit Frank Rojas APRN 09/19/2015 Office visit Hayder Encinas MD 07/29/2015 Office visit Hayder Encinas MD 02/28/2015 Office visit Hayder Encinas MD 12/27/2014 Office visit Hayder Encinas MD 10/18/2014 Office visit 10/18/2014 Office visit Hayder Encinas MD 07/09/2014 Office visit Hayder Encinas MD 04/15/2014 [facility] Celso Luke MD 04/06/2014 Office visit [...]
--- OUTSIDE RECORDS SUMMARY | 2018-12-12 07:05 | XMS REPORT ---
Author Author Hayder Encinas [facility] Address [address] [facility] [address] [place], [place] [id number] Care Team Providers Care House Registry Rn Name Role Phone Hayder Encinas PCP Unavailable Allergies and Adverse Reactions Name Reaction Notes NO KNOWN DRUG ALLERGIES Plan of Treatment Not available. Medications Active Name Start Date Estimated Completion Date SIG Comments pramipexole oral tablet 0.125 mg 08/30/2014 TAKE 1 TABLET (0.125 MG) BY ORAL ROUTE 2-3 HOURS BEFORE BEDTIME FOR 90 DAYS citalopram oral tablet 20 mg 10/18/2014 01/11/2016 take 1 tablet by oral route daily for 90 days citalopram oral tablet 20 mg 11/08/2014 TAKE 1 TABLET BY MOUTH EVERY DAY Medrol (Esvin) oral tablets,dose pack 4 mg 12/27/2014 01/08/2015 take as directed for 6 days promethazine-codeine oral syrup 6.25-10 mg/5 mL 12/27/2014 take 5 milliliters by oral route every 6 hours as needed, not to exceed 30 mL in 24 hours Name Start Date Expiration Date SIG Comments Bactrim DS Oral Tablet 800-160 mg 05/29/2011 06/05/2011 take 1 tablet by oral route every 12 hours for 7 days Levaquin Oral Tablet 750 mg 09/07/2011 09/14/2011 take 1 tablet (750 mg) by oral route once daily for 7 days Amoxicillin Oral Capsule 500 mg 2012 10/04/2012 take 2 capsules by oral route 3 times a day for 5 days pramipexole oral tablet 0.125 mg 09/11/2013 09/06/2014 take 1 tablet (0.125 mg ) by oral route 2-3 hours before bedtime for 90 days Zithromax Z-Esvin oral tablet 250 mg 09/28/2013 10/03/2013 take 2 tablets (500 mg) by oral route once daily for 1 day then 1 tablet (250 mg) by oral route once daily for 4 days ciprofloxacin oral tablet 500 mg 01/29/2014 02/19/2014 take 1 tablet (500 mg) by oral route every 12 hours for 21 days Discontinued Name Start Date Discontinued Date SIG Comments Lexapro Oral Tablet 10 mg 12/05/2012 take 1 tablet (10 mg) by oral route once daily Mirapex Oral Tablet 0.125 mg 08/28/2011 12/05/2012 take 1 tablet (0.125 mg) by oral route 2-3 hours before bedtime Alysa-D 12 Hour Oral tablet extended release 12 hr 60-120 mg 12/05/201209/28 take 1 tablet by oral route 2 times a day as needed Medrol (Esvin) Oral tablets,dose pack 4 mg 12/05/2012 09/28/2013 take as directed Axiron transdermal solution in metered pump w/susan 30 mg/1.5 mL /actuation 04/06/2014 apply 1 pump (30 mg) by topical route once daily in the morning to each underarm for a total dose of 60 mg promethazine-codeine oral syrup 6.25-10 mg/5 mL 09/28/2013 04/06/2014 take 5 milliliters by oral route every 4-6 hours as needed, not to exceed 30 mL in 24 hours Problem List Description Status Onset Depression Active Restless Leg Syndrome Active Testosterone deficiency Active Vital Signs Date Time BP-Sys(mm[Hg] BP-Ofe(mm[Hg]) HR(bpm) RR(rpm) Temp WT HT HC BMI BSA BMI Percentile O2 Sat(%) 12/27/2014 1:58:00 PM 13 mmHg 86 mmHg [...] of Procedures Date Ordered Description Order Status 08/23/2011 12:00 AM SHAVE SKIN LESION 0.6-1.0 [...] 4 OR MORE Returned 12/05/2012 12:00 AM COMPREHEN METABOLIC PANEL Returned 12/05/2012 12:00 AM LIPID PANEL Returned 12/05/2012 12:00 AM VIT B-12 ABSORP COMBINED Returned 12/05/2012 12:00 AM ASSAY THYROID STIM HORMONE Returned 12/05/2012 12:00 AM ASSAY OF TOTAL TESTOSTERONE Returned 06/25/2013 12:00 AM ASSAY OF TOTAL TESTOSTERONE Reviewed 09/28/2013 12:00 AM THER/PROPH/DIAG INJ SC/IM Reviewed 01/29/2014 12:00 AM COMPLETE CBC W/AUTO DIFF WBC Reviewed 09/07/2009 12:00 AM COMPLETE CBC W/AUTO [...] AM VITAMIN B-12 Reviewed 11/17/2010 12:00 AM ASSAY OF TOTAL TESTOSTERONE Reviewed 11/17/2010 12:00 AM THER/PROPH/DIAG INJ SC/IM Reviewed 10/18/2014 12:00 AM COMPLETE CBC W/AUTO DIFF WBC Reviewed 10/18/2014 12:00 AM COMPREHEN METABOLIC PANEL Reviewed 10/18/2014 12:00 AM LIPID PANEL Reviewed 10/18/2014 12:00 AM GLYCOSYLATED HEMOGLOBIN TEST Reviewed 10/18/2014 12:00 AM ASSAY THYROID STIM HORMONE Reviewed 10/18/2014 12:00 AM VITAMIN B-12 Reviewed 10/18/2014 12:00 AM ASSAY OF TOTAL TESTOSTERONE Reviewed Results Summary Data and Description Results [...] pg/mL 06/30/2013 8:10 AM PSA TOTAL 1.830 ng/mL 01/29/2014 11:07 AM WBC 7.3 RBC 5.31 HGB 16.60 g/dLHCT 45.10 %MCV 85.0 [facility] 31.30 [facility] 36.80 g/dLRDW CV 12.90 %MPV 10.10 fLPLT 277 %NEUT 54.90 %%LYMP 31.90 %%MONO 7.90 %%EOS 4.80 %%BASO 0.50 %#NEUT 4.03 #LYMP 2.34 #MONO 0.58 #EOS 0.35 #BASO 0.04 PSA TOTAL 1.970 ng/mL 10/18/2014 9:45 AM VITAMIN B12 445.0 pg/mLTSH 1.420 uIU/mLGLUCOSE 92.0 mg/ dLSODIUM 141.0 mmol/LPOTASSIUM 4.40 mmol/LCHLORIDE 105.0 mmol/LCO2 25.0 mmol/ LBUN 12.0 mg/dLCREATININE 0.90 mg/dLSGOT/AST 32.0 IU/LSGPT/ALT 42.0 IU/LALK PHOS 70.0 IU/LTOTAL PROTEIN 7.30 g/dLALBUMIN 4.50 g/dLTOTAL BILI 0.60 mg/ dLCALCIUM 10.0 mg/dLeGFR >60 mL/min/1.73 m2WBC 7.9 RBC 5.05 HGB 15.90 g/dLHCT 44.20 %MCV 88.0 fLMCH 31.50 pgMCHC 36.0 g/dLRDW CV 12.80 %MPV 9.50 fLPLT 255 % NEUT 60.40 %%LYMP 28.20 %%MONO 8.0 %%EOS 2.80 %%BASO 0.60 %#NEUT 4.78 #LYMP 2.23 #MONO 0.63 #EOS 0.22 #BASO 0.05 TRIGLYCERIDES 70.0 mg/dLCHOLESTEROL 150.0 mg/dLHDL 52.0 mg/dLLDL (CALC) 84.0 mg/dLHGB A1C 7.10 % History Of Immunizations Not available. History [...] 9:13AM Bronchitis, Acute Dec 27 2014 2:05PM Payers Insurance Name Company Name Plan Name Plan Number Policy Number Policy Group Number Start Date [employer] [place] [id number] Monday, 2013 [employer] [place] [id number] Monday, 2009 [employer] [place] [id number] Saturday, 2013 History of Encounters Visit Date Visit Type Provider 12/27/2014 Office visit Hayder Encinas MD 10/18/2014 Office visit Hayder Encinas MD 07/09/2014 Office visit Hayder Encinas MD 04/15/2014 [facility] Celso Luke MD 04/06/2014 Office visit Celso Luke MD 03/30/2014 Office visit Hayder Encinas MD 02/11/2014 Office visit Hayder Encinas MD 01/29/2014 Office visit Hayder Encinas MD 09/28/2013 Office visit Tessa Bloom APRN 07/08/2013 Office visit Hayder Encinas MD 12/05/2012 Office visit Chanda Tomlinson DIRECTOR RADIO 04/24/2012 Office visit Hayder Encinas MD 10/02/2011 Office visit Hayder Encinas MD 09/19/2011 Office visit Hayder Encinas MD 09/07/2011 Office visit Hayder Encinas MD 08/23/2011 Office visit Hayder Encinas MD 05/29/2011 Office visit Tessa Bloom APRN 11/17/2010 Office visit Hayder Encinas MD 07/03/2010 Office visit Hayder Encinas MD 09/07/2009 Office visit Hayder Encinas MD
--- OUTSIDE RECORDS SUMMARY | 2018-12-12 07:06 | XMS REPORT ---
Author Author Hayder Encinas [facility] Address [address] [facility] [address] [place], [place] [address] Care Team Providers Care Contact Lens Fitter Name Role Phone Hayder Encinas PCP Unavailable Allergies and Adverse Reactions Name Reaction Notes NO KNOWN DRUG ALLERGIES PENICILLINS Plan of Treatment Planned Activity Comments Planned Date Planned Time Plan/Goal COMPLETE CBC W/AUTO DIFF WBC 07/29/2015 12:00 AM COMPREHEN METABOLIC PANEL 07/29/2015 12:00 AM GLYCOSYLATED HEMOGLOBIN TEST 07/29/2015 12:00 AM CHEST X-RAY 2VW FRONTAL&LATL 07/29/2015 12:00 AM Medications Active Name Start Date Estimated Completion Date SIG Comments pramipexole 0.125 mg oral tablet 08/30/2014 TAKE 1 TABLET (0.125 MG) BY ORAL ROUTE 2-3 HOURS BEFORE BEDTIME FOR 90 DAYS citalopram 20 mg oral tablet 10/18/2014 01/11/2016 take 1 tablet by oral route daily for 90 days citalopram 20 mg oral tablet 11/08/2014 TAKE 1 TABLET BY MOUTH EVERY DAY pramipexole 0.125 mg oral tablet 02/04/2015 TAKE ONE TABLET 2 TO 3 HOURS BEFORE BEDTIME promethazine-codeine 6.25-10 mg/5 mL oral syrup 02/28/2015 take 5 milliliters by oral route every 6 hours as needed citalopram 20 mg oral tablet 07/13/2015 TAKE 1 TABLET DAILY Bactrim DS 800-160 mg oral tablet 07/25/2015 08/01/2015 take 1 tablet by oral route every [...] to exceed 30 mL in 24 hours Discontinued Name Start Date Discontinued Date SIG [...] to exceed 30 mL in 24 hours amoxicillin 875 mg oral tablet 07/25/2015 07/29/2015 take 1 tablet (875 mg) by oral route every 12 hours for 7 days Problem List Description Status Onset Depression Active Restless Leg Syndrome Active Testosterone deficiency Active Vital Signs Date Time BP-Sys(mm[Hg] BP-Ofe(mm[Hg]) HR(bpm) RR(rpm) Temp WT HT HC BMI BSA BMI Percentile O2 Sat(%) 07/29/2015 9:15:00 AM 138 mmHg 82 mmHg [...] 12:00 AM Decadron, Per 1 Mg [facility]# [address]-09 Reviewed 09/28/2013 12:00 AM Depo-Medrol, Per 80 Mg [facility]#4564-1968-64 Reviewed 01/29/2014 12:00 AM COMPLETE CBC W/AUTO [...] 11/17/2010 12:00 AM Depo-Medrol 80 Mg [facility] [id number] Reviewed 11/17/2010 12:00 AM Decadron Inj. per 1mg-[facility] [id number] Reviewed 10/18/2014 12:00 AM COMPLETE CBC W/AUTO DIFF WBC Reviewed 10/18/2014 12:00 AM COMPREHEN METABOLIC PANEL Reviewed 10/18/2014 12:00 AM LIPID PANEL Reviewed 10/18/2014 12:00 AM GLYCOSYLATED HEMOGLOBIN TEST Reviewed 10/18/2014 12:00 AM ASSAY THYROID STIM HORMONE Reviewed 10/18/2014 12:00 AM VITAMIN B-12 Reviewed 10/18/2014 12:00 AM ASSAY OF TOTAL TESTOSTERONE Reviewed 12/27/2014 12:00 AM Rocephin 1 gram [facility]#1783-8570-61 Reviewed 02/28/2015 12:00 AM Decadron, Per 1 Mg [facility]# [address]-55 Reviewed 02/28/2015 12:00 AM Depo-Medrol 40mg Reviewed [...] mg/dLCHOLESTEROL 150.0 mg/dLHDL 52.0 mg/dLLDL (CALC) 84.0 mg/dLEst Avg Glucose 157.1 mg/dL History Of Immunizations Not available. History [...] 2015 9:20AM Cough Jul 29 2015 9:20AM Payers Insurance Name Company Name Plan Name Plan Number Policy Number Policy Group Number Start Date [employer] [place] [id number] Monday, 2013 [employer] [place] [id number] Monday, 2009 [employer] [place] [id number] Saturday, 2013 History of Encounters Visit Date Visit Type Provider 07/29/2015 Office visit Hayder Encinas MD 02/28/2015 Office visit Hayder Encinas MD 12/27/2014 Office visit Hayder Encinas MD 10/18/2014 Office visit Hayder Encinas MD 07/09/2014 Office visit Hayder Encinas MD 04/15/2014 [facility] Celso Luke MD 04/06/2014 Office visit Celso Luke MD 03/30/2014 Office visit Hayder Encinas MD 02/11/2014 Office visit Hayder Encinas MD 01/29/2014 Office visit Hayder Encinas MD 09/28/2013 Office visit Tessa Bloom DISH UP PERSON 07/08/2013 Office visit Hayder Encinas MD 12/05/2012 Office visit Chanda Tomlinson DISH UP PERSON 04/24/2012 Office visit Hayder Encinas MD 10/02/2011 Office visit Hayder Encinas MD 09/19/2011 Office visit Hayder Encinas MD 09/07/2011 Office visit Hayedr Encinas MD 08/23/2011 Office visit Hayder Encinas MD 05/29/2011 Office visit Tessa Bloom APRN 11/17/2010 Office visit Hayder Encinas MD 07/03/2010 Office visit Hayder Encinas MD 09/07/2009 Office visit Hayder Encinas MD
--- OUTSIDE RECORDS SUMMARY | 2018-12-12 07:07 | XMS REPORT ---
Author Author Hayder Encinas [facility] Address [address] [facility] [address] [place], [place] [address] Care Team Providers Care Career Development Coordinator/Teacher Name Role Phone Hayder Encinas PCP Hayder [...] HC BMI BSA BMI Percentile O2 Sat(%) 08/29/2017 10:11:00 AM 130 mmHg 88 mmHg 75 bpm 20 rpm 97.1 F 210.125 lbs 70 in 30.15 kg/m2 2.17 m2 97 % 08/15/2017 8:24:00 AM 172 mmHg 94 mmHg 60 bpm 20 rpm 97 F 211.25 lbs 70 in 30.3109 kg/m 2.1754 m 98 % 04/16/2017 8:45:00 AM [...] 09/19/2015 12:00 AM Decadron, Per 1 Mg [facility]# [address]-96 Reviewed 09/19/2015 12:00 AM Depo-Medrol, Per 80 Mg [facility]#[address]-62 Reviewed 10/21/2015 12:[address] MAXILLOFACIAL W/O [...] 09/28/2013 12:00 AM Decadron, Per 1 Mg [facility]# [address]-30 Reviewed 09/28/2013 12:00 AM Depo-Medrol, Per 80 Mg [facility]#1262-5331-50 Reviewed 01/29/2014 12:00 AM COMPLETE CBC W/AUTO [...] Reviewed 11/17/2010 12:00 AM Depo-Medrol 80 Mg [facility] [id number] Reviewed 11/17/2010 12:00 AM Decadron Inj. per 1mg-[facility] [id number] Reviewed 10/18/2014 12:00 AM COMPLETE CBC W/AUTO DIFF WBC Reviewed 10/18/2014 12:00 AM COMPREHEN METABOLIC PANEL Reviewed 10/18/2014 12:00 AM LIPID PANEL Reviewed 10/18/2014 12:00 AM GLYCOSYLATED HEMOGLOBIN TEST Reviewed 10/18/2014 12:00 AM ASSAY THYROID STIM HORMONE Reviewed 10/18/2014 12:00 AM VITAMIN B-12 Reviewed 10/18/2014 12:00 AM ASSAY OF TOTAL TESTOSTERONE Reviewed 12/27/2014 12:00 AM Rocephin 1 gram [facility]#7523-8133-22 Reviewed 02/28/2015 12:00 AM Decadron, Per 1 Mg [facility]# [address]-82 Reviewed 02/28/2015 12:00 AM Depo-Medrol 40mg Reviewed [...] 2017 8:25AM Hypertension Aug 29 2017 10:18AM Payers Insurance Name Company Name Plan Name Plan Number Policy Number Policy Group Number Start Date [employer] [place] [id number] Monday, 2013 [employer] [place] [id number] Monday, 2009 [employer] [place] [id number] Saturday, 2013 History of Encounters Visit Date Visit Type Provider 08/29/2017 Office visit Hayder Encinas MD 08/15/2017 Office visit Hayder Encinas MD 04/16/2017 Office visit Hayder Encinas MD 12/07/2016 Laboratory Trinidad Goldberg MD 04/06/2016 Office visit Hayder Encinas MD 10/21/2015 Office visit Frank Rojas FRONT MAKER LOCKSTITCH 09/19/2015 Office visit Hayder Encinas MD 07/29/2015 Office visit Hayder Encinas MD 02/28/2015 Office visit Hayder Encinas MD 12/27/2014 Office visit Hayder Encinas MD 10/18/2014 Office visit 10/18/2014 Office visit Hayder Encinas MD 07/09/2014 Office visit Hayder Encinas MD 04/15/2014 [facility] Celso Luke MD 04/06/2014 Office visit Celso Luke MD 03/30/2014 Office visit Hayder Encinas MD 02/11/2014 Office visit Hayder Encinas MD 01/29/2014 Office visit Hayder Encinas MD 09/28/2013 Office visit Tessa Bloom APRN 07/08/2013 Office visit Hayder Encinas MD 12/05/2012 Office visit Chanda Tomlinson FRONT MAKER LOCKSTITCH 04/24/2012 Office visit Hayder Encinas MD 10/02/2011 Office visit Hayder Encinas MD 09/19/2011 Office visit Hayder Encinas MD 09/07/2011 Office visit Hayder Encinas MD 08/23/2011 Office visit Hayder Encinas MD 05/29/2011 Office visit Tessa Bloom APRN 11/17/2010 Office visit Hayder Encinas MD 07/03/2010 Office visit Hayder Encinas MD 09/07/2009 Office visit Hayder Encinas MD
--- OUTSIDE RECORDS SUMMARY | 2018-12-12 07:08 | XMS REPORT ---
Author Author Hayder Encinas [facility] Address [address] [place], [place] [address] Care Team Providers Care Liquefied Natural Gas Plant Operator Name Role Phone Hayder Encinas PCP Unavailable [...] oral tablet 07/13/2015 TAKE 1 TABLET DAILY Name Start Date [...] 09/28/2013 12:00 AM Decadron, Per 1 Mg [facility]# [address]-63 Reviewed 09/28/2013 12:00 AM Depo-Medrol, Per 80 Mg [facility]#5264-6903-83 Reviewed 01/29/2014 12:00 AM COMPLETE CBC W/AUTO [...] Reviewed 11/17/2010 12:00 AM Depo-Medrol 80 Mg [facility] [id number] Reviewed 11/17/2010 12:00 AM Decadron Inj. per 1mg-[facility] [id number] Reviewed 10/18/2014 12:00 AM COMPLETE CBC W/AUTO DIFF WBC Reviewed 10/18/2014 12:00 AM COMPREHEN METABOLIC PANEL Reviewed 10/18/2014 12:00 AM LIPID PANEL Reviewed 10/18/2014 12:00 AM GLYCOSYLATED HEMOGLOBIN TEST Reviewed 10/18/2014 12:00 AM ASSAY THYROID STIM HORMONE Reviewed 10/18/2014 12:00 AM VITAMIN B-12 Reviewed 10/18/2014 12:00 AM ASSAY OF TOTAL TESTOSTERONE Reviewed 12/27/2014 12:00 AM Rocephin 1 gram [facility]#6691-9685-74 Reviewed 02/28/2015 12:00 AM Decadron, Per 1 Mg [facility]# [address]-16 Reviewed 02/28/2015 12:00 AM Depo-Medrol 40mg Reviewed [...] Group Number Start Date [employer] [place] [id number] Monday, 2013 [employer] [place] [id number] Monday, 2009 [employer] [place] [id number] Saturday, 2013 History of Encounters Visit Date Visit Type Provider 07/29/2015 Office visit Hayder Encinas MD 02/28/2015 Office visit Hayder Encinas MD 12/27/2014 Office visit Hayder Encinas MD 10/18/2014 Office visit Hayder Encinas MD 07/09/2014 Office visit Hayder Encinas MD 04/15/2014 [facility] Celso Luke MD 04/06/2014 Office visit Celso Luke MD 03/30/2014 Office visit Hayder Encinas MD 02/11/2014 Office visit Hayder Encinas MD 01/29/2014 Office visit Hayder Encinas MD 09/28/2013 Office visit Tessa Bloom SAFETY ADMIN ASSISTANT 07/08/2013 Office visit Hayder Encinas MD 12/05/2012 Office visit Chanda Tomlinson SAFETY ADMIN ASSISTANT 04/24/2012 Office visit Hayder Encinas MD 10/02/2011 Office visit Hayder Encinas MD 09/19/2011 Office visit Hayder Encinas MD 09/07/2011 Office visit Hayder Encinas MD 08/23/2011 Office visit Hayder Encinas MD 05/29/2011 Office visit Tessa Bloom APRN 11/17/2010 Office visit Hayder Encinas MD 07/03/2010 Office visit Hayder Encinas MD 09/07/2009 Office visit Hayder Encinas MD
--- OUTSIDE RECORDS SUMMARY | 2018-12-12 07:09 | XMS REPORT ---
Author Author Shantell Freed [facility] Address [address] [facility] [address] [place], [place] [address] Care Team Providers Care Banquet Set Up Person Name Role Phone Shantell Freed PCP Hayder [...] 09/19/2015 12:00 AM Decadron, Per 1 Mg [facility]# [address]-51 Reviewed 09/19/2015 12:00 AM Depo-Medrol, Per 80 Mg [facility]#[address]-45 Reviewed 10/21/2015 12:[address] MAXILLOFACIAL W/O [...] 09/28/2013 12:00 AM Decadron, Per 1 Mg [facility]# [address]-56 Reviewed 09/28/2013 12:00 AM Depo-Medrol, Per 80 Mg [facility]#7018-7814-70 Reviewed 01/29/2014 12:00 AM COMPLETE CBC W/AUTO [...] Reviewed 11/17/2010 12:00 AM Depo-Medrol 80 Mg [facility] [id number] Reviewed 11/17/2010 12:00 AM Decadron Inj. per 1mg-[facility] [id number] Reviewed 10/18/2014 12:00 AM COMPLETE CBC W/AUTO DIFF WBC Reviewed 10/18/2014 12:00 AM COMPREHEN METABOLIC PANEL Reviewed 10/18/2014 12:00 AM LIPID PANEL Reviewed 10/18/2014 12:00 AM GLYCOSYLATED HEMOGLOBIN TEST Reviewed 10/18/2014 12:00 AM ASSAY THYROID STIM HORMONE Reviewed 10/18/2014 12:00 AM VITAMIN B-12 Reviewed 10/18/2014 12:00 AM ASSAY OF TOTAL TESTOSTERONE Reviewed 12/27/2014 12:00 AM Rocephin 1 gram [facility]#7292-4903-87 Reviewed 02/28/2015 12:00 AM Decadron, Per 1 Mg [facility]# [address]-75 Reviewed 02/28/2015 12:00 AM Depo-Medrol 40mg Reviewed [...] Number Policy Group Number [id number] Monday, 2013 [employer] [place] [id number] Monday, 2009 [employer] [place] [id number] Saturday, 2013 History of Encounters Visit Date Visit Type Provider 11/05/2017 Office visit Shantell Freed EQUIPMENT OPERATING ENGINEER 09/12/2017 Office visit Hayder Encinas MD 08/29/2017 Office visit Hayder Encinas MD 08/15/2017 Office visit Hayder Encinas MD 04/16/2017 Office visit Hayder Encinas MD 12/07/2016 Laboratory W Kenan Goldberg MD 04/06/2016 Office visit Hayder Encinas MD 10/21/2015 Office visit Frank Rojas EQUIPMENT OPERATING ENGINEER 09/19/2015 Office visit Hayder Encinas MD 07/29/2015 Office visit Hayder Encinas MD 02/28/2015 Office visit Hayder Encinas MD 12/27/2014 Office visit Hayder Encinas MD 10/18/2014 Office visit 10/18/2014 Office visit Hayder Encinas MD 07/09/2014 Office visit Hayder Encinas MD 04/15/2014 [facility] Celso Luke MD 04/06/2014 Office visit Celso Luke MD 03/30/2014 Office visit Hayder Encinas MD 02/11/2014 Office visit Hayder Encinas MD 01/29/2014 Office visit Hayder Encinas MD 09/28/2013 Office visit Tessa Bloom EQUIPMENT OPERATING ENGINEER 07/08/2013 Office visit Hayder Encinas MD 12/05/2012 Office visit Chanda Tomlinson EQUIPMENT OPERATING ENGINEER 04/24/2012 Office visit Hayder Encinas MD 10/02/2011 Office visit Hayder Encinas MD 09/19/2011 Office visit Hayder Encinas MD 09/07/2011 Office visit Hayder Encinas MD 08/23/2011 Office visit Hayder Encinas MD 05/29/2011 Office visit Tessa Bloom EQUIPMENT OPERATING ENGINEER 11/17/2010 Office visit Hayder Encinas MD 07/03/2010 Office visit Hayder Encinas MD 09/07/2009 Office visit Hayder Encinas MD
--- OUTSIDE RECORDS SUMMARY | 2018-12-12 07:10 | XMS REPORT ---
Author Author Hayder Encinas [facility] Address [address] [facility] [address] [place], [place] [address] Care Team Providers Care Account Support Specialist Name Role Phone Hayder Encinsa PCP Unavailable Allergies and Adverse Reactions Name Reaction Notes NO KNOWN DRUG ALLERGIES PENICILLINS Plan of Treatment Not available. Medications [...] oral tablet 07/13/2015 TAKE 1 TABLET DAILY Levaquin 500 mg oral tablet 09/19/2015 09/26/2015 [...] HC BMI BSA BMI Percentile O2 Sat(%) 09/19/2015 11:02:00 AM 124 mmHg 72 mmHg [...] 12:00 AM CHEST X-RAY 2VW FRONTAL&LATL Reviewed 08/23/2011 12:00 AM SHAVE SKIN LESION [...] 1 Mg [facility]# [address]-96 Reviewed 09/28/2013 12:00 AM Depo-Medrol, Per 80 Mg [facility]#9585-7032-96 Reviewed 01/29/2014 12:00 AM COMPLETE CBC W/AUTO [...] 80 Mg [facility] [id number] Reviewed 11/17/2010 12:00 AM Decadron Inj. per 1mg-[facility] [id number] Reviewed 10/18/2014 12:00 AM COMPLETE CBC W/AUTO DIFF WBC Reviewed 10/18/2014 12:00 AM COMPREHEN METABOLIC PANEL Reviewed 10/18/2014 12:00 AM LIPID PANEL Reviewed 10/18/2014 12:00 AM GLYCOSYLATED HEMOGLOBIN TEST Reviewed 10/18/2014 12:00 AM ASSAY THYROID STIM HORMONE Reviewed 10/18/2014 12:00 AM VITAMIN B-12 Reviewed 10/18/2014 12:00 AM ASSAY OF TOTAL TESTOSTERONE Reviewed 12/27/2014 12:00 AM Rocephin 1 gram [facility]#6862-9499-67 Reviewed 02/28/2015 12:00 AM Decadron, Per 1 Mg [facility]# [address]-62 Reviewed 02/28/2015 12:00 AM Depo-Medrol 40mg Reviewed [...] (CALC) 84.0 mg/dLEst Avg Glucose 157.1 mg/dL 07/29/2015 10:06 AM WBC 6.6 RBC 5.07 HGB 15.60 g/dLHCT 43.70 %MCV 86.0 fLMCH 30.80 pgMCHC 35.70 g/dLRDW CV 12.50 %MPV [...] BILI 0.80 mg/dLCALCIUM 9.20 mg/dLeGFR >60 mL/min/1.73m History Of Immunizations Not available. History of [...] 2015 11:07AM Sinusitis Sep 19 2015 11:07AM Payers Insurance Name Company Name Plan Name Plan Number Policy Number Policy Group Number Start Date [employer] [place] [id number] Monday, 2013 [employer] [place] [id number] Monday, 2009 [employer] [place] [id number] Saturday, 2013 History of Encounters Visit Date Visit Type Provider 09/19/2015 Office visit Hayder Encinas MD 07/29/2015 Office visit Hayder Encinas MD 02/28/2015 Office visit Hayder Encinas MD 12/27/2014 Office visit Hayder Encinas MD 10/18/2014 Office visit 10/18/2014 Office visit Hayder Encinas MD 07/09/2014 Office visit Hayder Encinas MD 04/15/2014 [facility] Celso Luke MD 04/06/2014 Office visit Celso Luke MD 03/30/2014 Office visit Hayder Encinas MD 02/11/2014 Office visit Hayder Encinas MD 01/29/2014 Office visit Hayder Encinas MD 09/28/2013 Office visit Tessa Bloom DERMATOLOGY PHYSICIAN ASSISTANT 07/08/2013 Office visit Hayder Encinas MD 12/05/2012 Office visit Chanda Tomlinson DERMATOLOGY PHYSICIAN ASSISTANT 04/24/2012 Office visit Hayder Encinas MD 10/02/2011 Office visit Hayder Encinas MD 09/19/2011 Office visit Hayder Encinas MD 09/07/2011 Office visit Hayder Encinas MD 08/23/2011 Office visit Hayder Encinas MD 05/29/2011 Office visit Tessa Bloom APRN 11/17/2010 Office visit Hayder Encinas MD 07/03/2010 Office visit Hayder Encinas MD 09/07/2009 Office visit Hayder Encinas MD
--- OUTSIDE RECORDS SUMMARY | 2018-12-12 07:11 | XMS REPORT | Clinical Summary ---
Author Author Admin, [facility] Organization [facility] Address Unknown Phone Unavailable Allergies, Adverse Reactions, Alerts Allergy Name Reaction Description Start Date Severity Status Provider Allergies Unknown Conditions or Problems Problem Name Problem Code Onset Date Status Entry Date Provider Comment Standard Description Annotate Dizziness 780.4 Active Andreina Doe Dizziness and giddiness Medication List Medication Instructions Start Date Stop Date Generic Name NDC Status Provider Patient Instruction Drug Treatment Unknown - unknown
--- OUTSIDE RECORDS SUMMARY | 2018-12-12 07:11 | XMS REPORT | Continuity of Care Document ---
Author Organization Unknown Address Unknown Allergies There is no data. Medications There is no data. Problems Date Dx Coded Attending Type Code Diagnosis Diagnosed By 06/25/2017 ROGERS MACEDO MD M25.521 Pain in right elbow 06/25/2017 ROGERS MACEDO MD M25.522 Pain in left elbow 11/19/2017 R42 Dizziness Procedures Code [place] [address] X-RAY EXAM OF ELBOW ROGERS MACEDO MD 06/25/2017 Results There is no data. Encounters ACCT No. Visit Date/Time Discharge Status Pt. Type Provider Facility Loc./Unit Complaint [id number] 06/25/2017 14:03:00 06/25/2017 14:03:00 DIS Outpatient REMINGTON BILLS, ROGERS W[facility] [id number] 01/14/2018 07:37:16 04/29/2018 10:42:00 DIS R LETY MANSFIELD [facility] RAMO PT Vestibular [id number] 12/24/2017 09:41:01 ACT Unknown [id number] 11/20/2018 10:14:05 11/20/2018 23:59:59 CLS Outpatient Hayder Encinas [id number] 04/17/2018 09:03:05 04/17/2018 23:59:59 CLS Outpatient Hayder Encinas [id number] 11/05/2017 18:57:49 11/05/2017 23:59:59 CLS Outpatient [place] Shantell Allenn [id number] 09/12/2017 10:36:49 09/12/2017 23:59:59 BJ Outpatient Hayder Encinas [id number] 08/29/2017 10:27:02 08/29/2017 23:59:59 BJ Outpatient Hayder Encinas [id number] 08/15/2017 09:14:58 08/15/2017 23:59:59 CLS Outpatient Hayder Encinas [id number] 04/16/2017 09:32:29 04/16/2017 23:59:59 CLS Outpatient HetlingerHayder [id number] 02/13/2017 14:23:33 02/13/2017 23:59:59 CLS Outpatient Trinidad Goldberg [id number] 04/06/2016 09:19:08 04/06/2016 23:59:59 CLS Outpatient HetlingerHayder [id number] 10/21/2015 09:51:05 10/21/2015 23:59:59 CLS Outpatient Frank Rojas [id number] 09/19/2015 11:49:06 09/19/2015 23:59:59 CLS Outpatient HetlingerHayder [id number] 07/29/2015 09:57:28 07/29/2015 23:59:59 CLS Outpatient HetlingerHayder [id number] 03/28/2015 22:14:03 03/28/2015 23:59:59 CLS Outpatient HetlingerHayder [id number] 12/27/2014 14:50:34 12/27/2014 23:59:59 CLS Outpatient HetlingerHayder [id number] 07/09/2014 09:54:00 07/09/2014 23:59:59 CLS Outpatient SherrielingHayder gunter [id number] 04/21/2014 12:50:09 04/21/2014 23:59:59 CLS Outpatient Celso Luke [id number] 04/06/2014 11:46:17 04/06/2014 23:59:59 CLS Outpatient Celso Luke [id number] 03/30/2014 11:11:01 03/30/2014 23:59:59 CLS Outpatient Hetlinger Hayder [id number] 01/29/2014 10:12:56 01/29/2014 23:59:59 CLS Outpatient Sherrielinglyric Hayder [id number] 09/28/2013 15:05:53 09/28/2013 23:59:59 CLS Outpatient Tessa Solis
--- OUTSIDE RECORDS SUMMARY | 2018-12-12 07:11 | XMS REPORT | Clinical Summary ---
Author Author Admin, [facility] Organization [facility] Address Unknown Phone Unavailable Allergies, Adverse Reactions, [...]
--- OUTSIDE RECORDS SUMMARY | 2018-12-12 07:11 | XMS REPORT | Clinical Summary ---
Author Author Admin, [facility] Organization [facility] Address Unknown Phone Unavailable Allergies, Adverse Reactions, [...]
--- OUTSIDE RECORDS SUMMARY | 2018-12-12 07:11 | XMS REPORT ---
Author Author Hayder Encinas [facility] Address [address] [place], [place] [id number] Care Team Providers Care Shaker Flat[place] Name Role Phone Hayder Encinas PCP Hyader Encinas PreferredProvider Allergies and Adverse Reactions Name [...] TABLET DAILY lisinopril-hydrochlorothiazide 10-12.5 mg oral tablet 08/15/2017 09/14/2017 take 1 tablet by oral route once daily for [...] HC BMI BSA BMI Percentile O2 Sat(%) 08/15/2017 8:24:00 AM 172 mmHg 94 mmHg [...] 09/19/2015 12:00 AM Decadron, Per 1 Mg [facility]# [address]-64 Reviewed 09/19/2015 12:00 AM Depo-Medrol, Per 80 Mg [facility]#[address]-08 Reviewed 10/21/2015 12:[address] MAXILLOFACIAL W/O [...] 09/28/2013 12:00 AM Decadron, Per 1 Mg [facility]# [address]-09 Reviewed 09/28/2013 12:00 AM Depo-Medrol, Per 80 Mg [facility]#3430-5922-50 Reviewed 01/29/2014 12:00 AM COMPLETE CBC W/AUTO [...] Reviewed 11/17/2010 12:00 AM Depo-Medrol 80 Mg [facility] [id number] Reviewed 11/17/2010 12:00 AM Decadron Inj. per 1mg-[facility] [id number] Reviewed 10/18/2014 12:00 AM COMPLETE CBC W/AUTO DIFF WBC Reviewed 10/18/2014 12:00 AM COMPREHEN METABOLIC PANEL Reviewed 10/18/2014 12:00 AM LIPID PANEL Reviewed 10/18/2014 12:00 AM GLYCOSYLATED HEMOGLOBIN TEST Reviewed 10/18/2014 12:00 AM ASSAY THYROID STIM HORMONE Reviewed 10/18/2014 12:00 AM VITAMIN B-12 Reviewed 10/18/2014 12:00 AM ASSAY OF TOTAL TESTOSTERONE Reviewed 12/27/2014 12:00 AM Rocephin 1 gram [facility]#9038-5588-51 Reviewed 02/28/2015 12:00 AM Decadron, Per 1 Mg [facility]# [address]-86 Reviewed 02/28/2015 12:00 AM Depo-Medrol 40mg Reviewed [...] 2017 8:46AM Hypertension Aug 15 2017 8:25AM Payers Insurance Name Company Name Plan Name Plan Number Policy Number Policy Group Number Start Date [employer] [place] [id number] Monday, 2013 [employer] [place] [id number] Monday, 2009 [employer] [place] [id number] Saturday, 2013 History of Encounters Visit Date Visit Type Provider 08/15/2017 Office visit Hayder Encinas MD 04/16/2017 Office visit Hayder Encinas MD 12/07/2016 Laboratory Trinidad Goldberg MD 04/06/2016 Office visit Hayder Encinas MD 10/21/2015 Office visit Frank Rojas ANIMAL ASSISTANT 09/19/2015 Office visit Hayder Encinas MD 07/29/2015 Office visit Hayder Encinas MD 02/28/2015 Office visit Hayder Encinas MD 12/27/2014 Office visit Hayder Encinas MD 10/18/2014 Office visit 10/18/2014 Office visit Hayder Encinas MD 07/09/2014 Office visit Hayder Encinas MD 04/15/2014 [facility] Celso Luke MD 04/06/2014 Office visit Celso Luke MD 03/30/2014 Office visit Hayder Encinas MD 02/11/2014 Office visit Hayder Encinas MD 01/29/2014 Office visit Hayder Encinas MD 09/28/2013 Office visit Tessa Bloom ANIMAL ASSISTANT 07/08/2013 Office visit Hayder Encinas MD 12/05/2012 Office visit Chanda Tomlinson ANIMAL ASSISTANT 04/24/2012 Office visit Hayder Encinas MD 10/02/2011 Office visit Hayder Encinas MD 09/19/2011 Office visit Hayder Encinas MD 09/07/2011 Office visit Hayder Encinas MD 08/23/2011 Office visit Hayder Encinas MD 05/29/2011 Office visit Tessa Bloom APRN 11/17/2010 Office visit Hayder Encinas MD 07/03/2010 Office visit Hayder Encinas MD 09/07/2009 Office visit Hyader Encinas MD
--- NOTE | 2018-12-12 07:48 | Diagnostic Imaging Report ---
Clinical indication: Pre-JUNG with cardioversion. Exam: Portable chest x-ray upright view. Comparisons: None. Findings: Lungs/pleura: Lungs are clear. There is no pneumothorax. There is no pleural effusion. Mediastinum: Unremarkable. Pulmonary vasculature: Unremarkable. Heart: Unremarkable. Bones/extrathoracic soft tissue: There are mildly hypertrophic spurs involving the thoracic spine. Impression: There is no radiographic evidence of acute cardiopulmonary process. Dictated by: Dictated on workstation # [id number]
[2018-12-12 07:54] LABS: HEMOGLOBIN 16.6 G/DL (13.3-17.7); MEAN PLATELET VOLUME 9.9 FL (7.4-10.4); RED CELL DISTRIBUTION WIDTH 12.9 % (10.0-14.5); WHITE BLOOD COUNT 7.5 10^3/uL (4.3-11.0)
[2018-12-12 08:04] LABS: INR 1.4 (0.8-1.4); PROTHROMBIN TIME PATIENT 17.4 SEC (12.2-14.7)
[2018-12-12 08:11] LABS: ALANINE AMINOTRANSFERASE 31 U/L (0-55); ALBUMIN 4.3 GM/DL (3.2-4.5); ALKALINE PHOSPHATASE 64 U/L (40-136); BUN/CREATININE RATIO 17; CALCIUM 9.8 MG/DL (8.5-10.1); CARBON DIOXIDE 24 MMOL/L (21-32); CHLORIDE 107 MMOL/L (98-107); CREATININE SERUM 1.01 MG/DL (0.60-1.30); GFR ESTIMATED > 60; GLUCOSE 109 MG/DL (70-105); POTASSIUM 4.3 MMOL/L (3.6-5.0); SODIUM 139 MMOL/L (135-145)
--- NOTE | 2018-12-12 08:59 | Cardiac Procedure Note-CS/ASA ---
Pre-Procedure Note Pre-Op Procedure Note H&P Reviewed The H&P was reviewed, patient examined and no changes noted. Date H&P Reviewed: Dec 12, 2018 Time H&P Reviewed: 08:59 Conscious Sedation Pre-Proced Time 08:59 ASA Score 3 For ASA 3 and 4: Consider anesthesia and medical clearance. Also, for patients with a history of failed moderate sedation consider anesthesia. Airway Lungs Heart ASA score ASA 1: a normal healthy patient ASA 2: a patient with a mild systemic disease (mid diabetes, controlled hypertension, obesity x ASA 3: a patient with a severe systemic disease that limits activity (angina , COPD, prior Myocardial infarction) ASA 4: a patient with an incapacitating disease that is a constant threat to life (CHF, renal failure) ASA 5: a moribund patient not expected to survive 24 hrs. (ruptured aneurysm) ASA 6: a declared brain- patient whose organs are being harvested. For emergent operations, add the letter E after the classification Mallampati Classification Grade 3 Sedation Plan Analgesia, Amnesia, Plan communicated to team members, Discussed options with patient/fam, Discussed risks with patient/fam The patient is an appropriate candidate to undergo the planned procedure, sedation, and anesthesia. The patient immediately re-assessed prior to indication. LITZY HATFIELD MD Dec 12, 2018 08:59
--- NOTE | 2018-12-12 09:38 | Anesthesia-Procedure Note ---
Procedures/Interventions Procedure Start/Stop/Diagnosis Date of Procedure: Dec 12, 2018 Start Time: 08:43 Referring Physician: Alysia Preprocedural Diagnosis: A fib Brief History To director of labor and delivery. Patient to have JUNG/Cardioversion. History reviewed briefly and noted allergy to PCN. O2/NC with etcO2. Patient given a total of Versed 2mg and Propofol 100mg throughout procedure(s). Patient converted on first attempt. Spontaneous respirations resumed throughout. VSS. Report off to Didi Staley RN Stop Time: 08:55 Postprocedural Diagnosis: KATYA WADE CRNA Dec 12, 2018 09:38
--- NOTE | 2018-12-12 10:52 | NUR ---
iv dc'd cath intact on removal, reviewed dc instructions, script called in. dc via w/c, remained sr post cardioversion
--- NOTE | 2018-12-12 10:58 | Cardioversion ---
Cardioversion PROCEDURE PHYSICIAN: Litzy Hatfield DATE OF PROCEDURE: 12/12/18 DIRECT EXTERNAL ELECTRICAL CARDIOVERSION: Indications: Atrial Fibrillation Preoperative diagnoses: Atrial Fibrillation Postoperative diagnosis: Sinus rhythm, Successful Electrical Cardioversion History: Anesthesia: By Anesthesia services Complications: None Specimen: None Contrast: 0 Flouroscopy: none Procedure Details: The patient was brought the cardiac cath technologist after informed consent was taken, all the risks and complications were explained including the risk of stroke. Electrical cardioversion was carried out with anesthesia support with propofol. 200 joules of synchronized shock was delivered through external patches which promptly restored sinus rhythm. The patient tolerated the procedure well. Conclusions: Accessible electrical cardioversion with no complication Final Diagnosis: Chronic atrial fibrillation Bradycardia Dizziness LITZY HATFIELD MD Dec 12, 2018 10:58 am
== END | disposition home or self-care (01) ==
LOC: CATH 06:52
PROVIDERS: ATTEND Internal Medicine Cardiovascular Disease
DX: I48.2 Chronic atrial fibrillation (principal); R00.1 Bradycardia, unspecified; R42 Dizziness and giddiness; I10 Essential (primary) hypertension; I08.1 Rheumatic disorders of both mitral and tricuspid valves; F32.9 Major depressive disorder, single episode, unspecified; R26.81 Unsteadiness on feet; H40.9 Unspecified glaucoma; Z79.01 Long term (current) use of anticoagulants; Z79.899 Other long term (current) drug therapy
CPT/HCPCS: 36415; 71045; 80053; 85027; 85610; 85730; 87081; 92960; 93005; 93312; 93320; 93325

== ENCOUNTER 2019-02-16 08:48 | Outpatient (RCR) | payer BC ==
[~2019-02-16 08:48] MED LIST changes: -AMIODARONE 200 MG (CORDARONE) TAB PO SCH; -AMIODARONE FOR BOLUS 150 MG in D5W 100 ML IVPB 100 ML IV ONE; -LIDOCAINE 2% VISCOUS 15 ML UDC ONE; -LIDOCAINE 2% VISCOUS 15 ML UDC PO ONE; -MIDAZOLAM 2 MG/2 ML (VERSED) VIAL ONE; -NS IV 1000 ML 1,000 ML IV SCH; -NS IV 1000 ML 1,000 ML ONE; -proPOfol 200 MG/20 ML (DIPRIVAN) VIAL IV ONE
[2019-02-26] MEDS ORDERED: DIPH25CA79 PO (08:24)
[2019-02-26] MEDS ORDERED: MELA1TAB27 PO (08:24)
[2019-02-26] MEDS ORDERED: DRON400T2 PO (08:24)
[2019-03-20] MEDS ORDERED: CLIN300C11 PO (09:20)
[2019-05-07] MEDS ORDERED: LISI-552 PO (08:49)
== END 2019-05-17 | disposition home or self-care (01) ==
LOC: CARD 08:48
PROVIDERS: ATTEND Internal Medicine Interventional Cardiology
DX: I49.5 Sick sinus syndrome (principal); R42 Dizziness and giddiness; I48.1 Persistent atrial fibrillation
CPT/HCPCS: 93270

== ENCOUNTER 2019-02-26 07:48 | Day surgery (SDC) | payer BC ==
[~2019-02-26] VITALS: Ht 177.8 cm; Wt 95.3 kg
[2019-02-26] MEDS ORDERED: NS IV 1000 ML 1,000 ML ONE (07:51)
[2019-02-26] MEDS ORDERED: NS IV 1000 ML 1,000 ML IV SCH (08:00)
--- OUTSIDE RECORDS SUMMARY | 2019-02-26 08:07 | XMS REPORT | Continuity of Care Document ---
Author Organization Unknown Address Unknown Allergies Active Description Code Type Severity Reaction Onset Reported/Identified Relationship to Patient Clinical Status Yes Penicillins [id number] Drug Allergy Unknown N/A 11/26/2018 Medications There is no data. Problems Date Dx Coded Attending Type Code Diagnosis Diagnosed By 06/25/2017 REMINGTON BILLS, ROGERS Sen M25.521 Pain in right elbow 06/25/2017 ROGERS MACEDO MD M25.522 Pain in left elbow 11/19/2017 R42 Dizziness 12/15/2018 LITZY HATFIELD MD, Ot F32.9 MAJOR DEPRESSIVE DISORDER, SINGLE EPISOD 12/15/2018 LITZY HATFIELD MD, Ot H40.9 UNSPECIFIED GLAUCOMA 12/15/2018 LITYZ HATFIELD MD, Ot I08.1 RHEUMATIC DISORDERS OF BOTH MITRAL AND T 12/15/2018 LITZY HATFIELD MD Ot I10 ESSENTIAL (PRIMARY) HYPERTENSION 12/15/2018 LITZY HATFIELD MD Ot I48.2 CHRONIC ATRIAL FIBRILLATION 12/15/2018 LITZY HATFIELD MD Ot R00.1 BRADYCARDIA, UNSPECIFIED 12/15/2018 LITZY HATFIELD MD Ot R26.81 UNSTEADINESS ON FEET 12/15/2018 LITZY HATFIELD MD Ot R42 DIZZINESS AND GIDDINESS 12/15/2018 LITZY HATFIELD MD Ot Z79.01 MCC (CURRENT) USE OF ANTICOAGULANT 12/15/2018 LITZY HATFIELD MD Ot Z79.899 OTHER MCC (CURRENT) DRUG THERAPY 12/15/2018 LITZY HATFIELD MD, Ot F32.9 MAJOR DEPRESSIVE DISORDER, SINGLE EPISOD 12/15/2018 LITZY HATFIELD MD, Ot H40.9 UNSPECIFIED GLAUCOMA 12/15/2018 LITZY HATFIELD MD Ot I08.1 RHEUMATIC DISORDERS OF BOTH MITRAL AND T 12/15/2018 LITZY HATFIELD MD Ot I10 ESSENTIAL (PRIMARY) HYPERTENSION 12/15/2018 LITZY HATFIELD MD Ot I48.2 CHRONIC ATRIAL FIBRILLATION 12/15/2018 LITZY HATFIELD MD Ot R00.1 BRADYCARDIA, UNSPECIFIED 12/15/2018 LITZY HATFIELD MD Ot R26.81 UNSTEADINESS ON FEET 12/15/2018 LITZY HATFIELD MD Ot R42 DIZZINESS AND GIDDINESS 12/15/2018 LITZY HATFIELD MD Ot Z79.01 MCC (CURRENT) USE OF ANTICOAGULANT 12/15/2018 LITZY HATFIELD MD Ot Z79.899 OTHER QUANTITATIVE ANALYST MARKETING (CURRENT) DRUG THERAPY 12/24/2018 LITZY HATFIELD MD Ot F32.9 MAJOR DEPRESSIVE DISORDER, SINGLE EPISOD 12/24/2018 LITZY HATFIELD MD Ot H40.9 UNSPECIFIED GLAUCOMA 12/24/2018 LITZY HATFIELD MD Ot I08.1 RHEUMATIC DISORDERS OF BOTH MITRAL AND T 12/24/2018 LITZY HATFIELD MD Ot I10 ESSENTIAL (PRIMARY) HYPERTENSION 12/24/2018 LITZY HATFIELD MD Ot I48.2 CHRONIC ATRIAL FIBRILLATION 12/24/2018 LITZY HATFIELD MD Ot R00.1 BRADYCARDIA, UNSPECIFIED 12/24/2018 LITZY HATFIELD MD Ot R26.81 UNSTEADINESS ON FEET 12/24/2018 LITZY HATFIELD MD Ot R42 DIZZINESS AND GIDDINESS 12/24/2018 LITZY HATFIELD MD Ot Z79.01 QUANTITATIVE ANALYST MARKETING (CURRENT) USE OF ANTICOAGULANT 12/24/2018 LITZY HATFIELD MD Ot Z79.899 OTHER QUANTITATIVE ANALYST MARKETING (CURRENT) DRUG THERAPY 02/24/2019 LITZY HATFIELD MD Ot F32.9 MAJOR DEPRESSIVE DISORDER, SINGLE EPISOD 02/24/2019 LITZY HATFIELD MD Ot I08.1 RHEUMATIC DISORDERS OF BOTH MITRAL AND T 02/24/2019 LITZY HATFIELD MD Ot I10 ESSENTIAL (PRIMARY) HYPERTENSION 02/24/2019 LITZY HATFIELD MD Ot I48.2 CHRONIC ATRIAL FIBRILLATION 02/24/2019 LITZY HATFIELD MD Ot R00.1 BRADYCARDIA, UNSPECIFIED 02/24/2019 LITZY HATFIELD MD Ot R07.9 CHEST PAIN, UNSPECIFIED 02/24/2019 LITZY HATFIELD MD Ot R42 DIZZINESS AND GIDDINESS Procedures Code Description [place] [address] X-RAY EXAM OF ELBOW ROGERS MACEDO MD R 06/25/2017 Results Test Result Range Automated blood complete blood count (hemogram) panel - 12/12/18 07:45 Blood leukocytes automated count (number/volume) 7.5 10*3/uL 4.3-11.0 Blood erythrocytes automated count (number/volume) 5.37 10*6/uL 4.35-5.85 Venous blood hemoglobin measurement (mass/volume) 16.6 g/dL 13.3-17.7 Blood hematocrit (volume fraction) 46 % 40-54 Automated erythrocyte mean corpuscular volume 85 [foz_us] 80-99 Automated erythrocyte mean corpuscular hemoglobin (mass per erythrocyte) 31 pg 25-34 Automated erythrocyte mean corpuscular hemoglobin concentration measurement (mass/volume) 36 g/dL 32-36 Automated erythrocyte distribution width ratio 12.9 % 10.0- 14.5 Automated blood platelet count (count/volume) 245 10*3/uL 130-400 Automated blood platelet mean volume measurement 9.9 [foz_us] 7.4-10.4 PT panel in platelet poor plasma by coagulation assay - 12/12/18 07:45 Prothrombin time (PT) in platelet poor plasma by coagulation assay 17.4 s 12.2-14.7 INR in platelet poor plasma or blood by coagulation assay 1.4 0.8-1.4 Activated partial thromboplastin time (aPTT) in platelet poor plasma bycoagulation assay - 12/12/18 07:45 Activated partial thromboplastin time (aPTT) in platelet poor plasma bycoagulation assay 40 s 24-35 Comprehensive metabolic panel - 12/12/18 07:45 Serum or plasma sodium measurement (moles/volume) 139 mmol/L 135-145 Serum or plasma potassium measurement (moles/volume) 4.3 mmol/L 3.6-5.0 Serum or plasma chloride measurement (moles/volume) 107 mmol/L 98-107 Carbon dioxide 24 mmol/L 21-32 Serum or plasma anion gap determination (moles/volume) 8 mmol/L 5-14 Serum or plasma urea nitrogen measurement (mass/volume) 17 mg/dL 7-18 Serum or plasma creatinine measurement (mass/volume) 1.01 mg/dL 0.60-1.30 Serum or plasma urea nitrogen/creatinine mass ratio 17 NRG Serum or plasma creatinine measurement with calculation of estimated glomerular filtration rate > NRG Serum or plasma glucose measurement (mass/volume) 109 mg/dL 70-105 Serum or plasma calcium measurement (mass/volume) 9.8 mg/dL 8.5-10.1 Serum or plasma total bilirubin measurement (mass/volume) 1.0 mg/dL 0.1-1.0 Serum or plasma alkaline phosphatase measurement (enzymatic activity/volume) 64 U/L 40-136 Serum or plasma aspartate aminotransferase measurement (enzymatic activity/volume) 28 U/L 5-34 Serum or plasma alanine aminotransferase measurement (enzymatic activity/volume) 31 U/L 0-55 Serum or plasma protein measurement (mass/volume) 7.0 g/dL 6.4-8.2 Serum or plasma albumin measurement (mass/volume) 4.3 g/dL 3.2-4.5 CALCIUM CORRECTED 9.6 mg/dL 8.5-10.1 Methicillin resistant Staphylococcus aureus (MRSA) screening culture - 12/12/18 07:45 Methicillin resistant Staphylococcus aureus (MRSA) screening culture NEG NRG Encounters ACCT No. Visit Date/Time Discharge Status Pt. Type Provider Facility Loc./Unit Complaint [id number] 06/25/2017 14:03:00 06/25/2017 14:03:00 DIS Outpatient REMINGTON BILLS, [facility] [id number] 11/26/2018 10:27:00 02/24/2019 00:01:00 DIS Outpatient LITZY HATFIELD MD [facility] CARD AFIB [id number] 02/16/2019 08:48:00 02/16/2019 23:59:59 CLS Outpatient Danny GRAVES MD [facility] CARD [facility] [id number] 12/12/2018 06:52:00 12/12/2018 23:59:59 CLS Outpatient LITZY HATFIELD MD [facility] AFIB, [facility] [id number] 02/26/2019 09:00:00 PEN Preadmit Danny GRAVES MD [facility] AFIB [id number] 02/26/2019 09:00:00 PEN Preadmit Danny GRAVES MD [facility] CATH PERSISTEN AF [id number] 02/25/2019 11:00:00 PEN Preadmit LIU BILLS, LITZY Merino [facility] CARD AFIB [id number] 01/14/2018 07:37:16 04/29/2018 10:42:00 DIS R LETY MANSFIELD [facility] RAMO PT Vestibular [id number] 12/24/2017 09:41:01 ACT Unknown [id number] 02/04/2019 16:56:27 02/04/2019 23:59:59 CLS Outpatient Trinidad Goldberg [id number] 11/20/2018 10:14:05 11/20/2018 23:59:59 CLS Outpatient Hayder Encinas [id number] 04/17/2018 09:03:05 04/17/2018 23:59:59 CLS Outpatient Hayder Encinas [id number] 11/05/2017 18:57:49 11/05/2017 23:59:59 CLS Outpatient Shantell Freed [id number] 09/12/2017 10:36:49 09/12/2017 23:59:59 CLS Outpatient SherrieHayder kruger [id number] 08/29/2017 10:27:02 08/29/2017 23:59:59 CLS Outpatient SherrieHayder kruger [id number] 08/15/2017 09:14:58 08/15/2017 23:59:59 CLS Outpatient SherrieaHyder kruger [id number] 04/16/2017 09:32:29 04/16/2017 23:59:59 CLS Outpatient Hayder Encinas [id number] 02/13/2017 14:23:33 02/13/2017 23:59:59 CLS Outpatient Trinidad Goldberg [id number] 04/06/2016 09:19:08 04/06/2016 23:59:59 CLS Outpatient Hayder Encinas [id number] 10/21/2015 09:51:05 10/21/2015 23:59:59 CLS Outpatient Frank Rojas [id number] 09/19/2015 11:49:06 09/19/2015 23:59:59 CLS Outpatient Hayder Encinas [id number] 07/29/2015 09:57:28 07/29/2015 23:59:59 CLS Outpatient Hayder Encinas [id number] 03/28/2015 22:14:03 03/28/2015 23:59:59 CLS Outpatient Hayder Encinas [id number] 12/27/2014 14:50:34 12/27/2014 23:59:59 CLS Outpatient Hayder Encinas [id number] 07/09/2014 09:54:00 07/09/2014 23:59:59 CLS Outpatient Hayder Encinas [id number] 04/21/2014 12:50:09 04/21/2014 23:59:59 CLS Outpatient Celso Luke [id number] 04/06/2014 11:46:17 04/06/2014 23:59:59 CLS Outpatient Celso Luke [id number] 03/30/2014 11:11:01 03/30/2014 23:59:59 CLS Outpatient Hayder Encinas [id number] 01/29/2014 10:12:56 01/29/2014 23:59:59 CLS Outpatient Hayder Encinas [id number] 09/28/2013 15:05:53 09/28/2013 23:59:59 CLS Outpatient Tessa Solis
[2019-02-26 08:15] VITALS: BP 142/87
[2019-02-26] MEDS ORDERED: MELA1TAB27 PO (08:24)
[2019-02-26] MEDS ORDERED: DIPH25CA79 PO (08:24)
[2019-02-26] MEDS ORDERED: DRON400T2 PO (08:24)
[2019-02-26] MEDS ORDERED: proPOfol 200 MG/20 ML (DIPRIVAN) VIAL IV ONE (09:01)
[2019-02-26 09:09] VITALS: BP 134/83
[2019-02-26 09:29] VITALS: BP 140/90
[2019-02-26 09:34] VITALS: BP 130/78
[2019-02-26 09:39] VITALS: BP 127/76
[2019-02-26 10:00] VITALS: BP 132/72
--- NOTE | 2019-02-26 10:34 | Anesthesia-Procedure Note ---
Procedures/Interventions Procedure Start/Stop/Diagnosis Date of Procedure: Feb 26, 2019 Start Time: 09:25 Stop Time: 09:35 JUNG/Cardioversion Anesthesia Type: mac ASA Class: 3 Medications Propofol 60 mg IV Monitors and Equipment: Continuous EKG, End Tidal CO2, IV, Pulse Oximeter, V Lead EKG DARY BARRETO CRNA Feb 26, 2019 10:34
--- NOTE | 2019-02-26 10:38 | Anesthesia-General Post-Op ---
MAC Patient Condition Mental Status/LOC: Same as Preop Cardiovascular: Satisfactory Nausea/Vomiting: Absent Respiratory: Satisfactory Pain: Controlled Complications: Absent Post Op Complications Complications None Follow Up Care/Instructions Patient Instructions None needed. Anesthesiology Discharge Order Discharge Order Patient is doing well, no complaints, stable vital signs, no apparent adverse anesthesia problems. No complications reported per nursing. DARY BARRETO CRNA Feb 26, 2019 10:38
--- NOTE | 2019-02-28 15:44 | Cardioversion ---
Cardioversion PROCEDURE PHYSICIAN: Kiara Villatoro MD DATE OF PROCEDURE: 02/28/19 DIRECT EXTERNAL ELECTRICAL CARDIOVERSION: Indications: Atrial Fibrillation with rapid ventricular rate Preoperative diagnoses: Atrial Fibrillation with rapid ventricular rate Postoperative diagnosis: Sinus rhythm, Successful Electrical Cardioversion History:persistent atrial fibrillation Anesthesia: By Anesthesia services Complications: None Specimen: None Contrast: 0 Flouroscopy: none Procedure Details: The patient was brought the helper animal laboratory after informed consent was taken, all the risks and complications were explained including the risk of stroke. Electrical cardioversion was carried out with anesthesia support with propofol. 200 joules of synchronized shock was delivered through external patches which promptly restored sinus rhythm. The patient tolerated the procedure well. Conclusions: 1.Successful Cardioversion. 2.Continue oral anticoagulation and rate controlling agent. 3.Follow up in office in 2-3 weeks. Kiara Villatoro MD, RS, CCDS Cardiac Electrophysiology Danny VILLATORO MD Feb 28, 2019 15:44
== END 2019-02-26 10:27 | disposition home or self-care (01) ==
LOC: CATH 07:48
PROVIDERS: ATTEND Internal Medicine Interventional Cardiology
DX: I48.1 Persistent atrial fibrillation (principal); I48.3 Typical atrial flutter; I49.5 Sick sinus syndrome; I10 Essential (primary) hypertension; R00.1 Bradycardia, unspecified; Z79.01 Long term (current) use of anticoagulants
CPT/HCPCS: 92960; 93005

== ENCOUNTER 2019-03-19 09:36 | Day surgery (SDC) | payer BC ==
[~2019-03-19] VITALS: Ht 177.8 cm; Wt 95.3 kg
[~2019-03-19 09:36] MED LIST changes: +DIPH25CA79 PO; +DRON400T2 PO; +MELA1TAB27 PO
--- OUTSIDE RECORDS SUMMARY | 2019-03-19 09:53 | XMS REPORT | Continuity of Care Document ---
Author Organization Unknown Address Unknown Phone Unavailable Allergies Active Description Code Type Severity Reaction Onset Reported/Identified Relationship to Patient Clinical Status Yes Penicillins [id number] Drug Allergy Unknown N/A 11/26/2018 Medications There is no data. Problems Date Dx Coded Attending Type Code Diagnosis Diagnosed By 06/25/2017 REMINGTON BILLS, ROGERS Sen M25.521 Pain in right elbow 06/25/2017 ROGERS MACEDO MD M25.522 Pain in left elbow 11/19/2017 R42 Dizziness 12/15/2018 LITZY HATFIELD MD, Ot F32.9 MAJOR DEPRESSIVE DISORDER, SINGLE EPISOD 12/15/2018 LITZY HATFIELD MD Ot H40.9 UNSPECIFIED GLAUCOMA 12/15/2018 LITZY HATFIELD [...] GIDDINESS 12/15/2018 LITZY HATFIELD MD Ot Z79.01 [facility] (CURRENT) USE OF ANTICOAGULANT 12/15/2018 LITZY HATFIELD MD Ot Z79.899 OTHER [facility] (CURRENT) DRUG THERAPY 12/15/2018 LITZY HATFIELD MD Ot F32.9 MAJOR DEPRESSIVE DISORDER, SINGLE EPISOD 12/15/2018 LITZY HATFIELD MD Ot H40.9 UNSPECIFIED GLAUCOMA 12/15/2018 LITZY HATFIELD [...] GIDDINESS 12/15/2018 LITZY HATFIELD MD Ot Z79.01 [facility] (CURRENT) USE OF ANTICOAGULANT 12/15/2018 LITZY HATFIELD MD Ot Z79.899 OTHER STEWARD/STEWARDESS (CURRENT) DRUG THERAPY 12/24/2018 LITZY HATFIELD MD [...] GIDDINESS 12/24/2018 LITZY HATFIELD MD Ot Z79.01 [facility] (CURRENT) USE OF ANTICOAGULANT 12/24/2018 LITZY HATFIELD MD Ot Z79.899 OTHER STEWARD/STEWARDESS (CURRENT) DRUG THERAPY 02/24/2019 LITZY HATFIELD MD [...] HATFIELD MD Ot R42 DIZZINESS AND GIDDINESS 02/26/2019 Danny GRAVES MD Ot I10 ESSENTIAL (PRIMARY) HYPERTENSION 02/26/2019 Danny GRAVES MD Ot I48.1 PERSISTENT ATRIAL FIBRILLATION 02/26/2019 Danny GRAVES MD Ot I48.3 TYPICAL ATRIAL FLUTTER 02/26/2019 Danny GRAVES MD Ot I49.5 SICK SINUS SYNDROME 02/26/2019 Danny GRAVES MD Ot R00.1 BRADYCARDIA, UNSPECIFIED 02/26/2019 Danny GRAVES MD Ot Z79.01 [facility] (CURRENT) USE OF ANTICOAGULANT 03/03/2019 Danny GRAVES MD Ot I10 ESSENTIAL (PRIMARY) HYPERTENSION 03/03/2019 Danny GRAVES MD Ot I48.1 PERSISTENT ATRIAL FIBRILLATION 03/03/2019 Danny GRAVES MD Ot I48.3 TYPICAL ATRIAL FLUTTER 03/03/2019 Danny GRAVES MD Ot I49.5 SICK SINUS SYNDROME 03/03/2019 Danny GRAVES MD Ot R00.1 BRADYCARDIA, UNSPECIFIED 03/03/2019 Danny GRAVES MD Ot Z79.01 STEWARD/STEWARDESS (CURRENT) USE OF ANTICOAGULANT 03/05/2019 Danny GRAVES MD Ot I10 ESSENTIAL (PRIMARY) HYPERTENSION 03/05/2019 Danny GRAVES MD Ot I48.1 PERSISTENT ATRIAL FIBRILLATION 03/05/2019 Danny GRAVES MD Ot I48.3 TYPICAL ATRIAL FLUTTER 03/05/2019 Danny GRAVES MD Ot I49.5 SICK SINUS SYNDROME 03/05/2019 Danny GRAVES MD Ot R00.1 BRADYCARDIA, UNSPECIFIED 03/05/2019 Danny GRAVES MD Ot Z79.01 [facility] (CURRENT) USE OF ANTICOAGULANT Procedures Code [place] [address] X-RAY EXAM OF ROGERS RIOJAS MD 06/25/2017 Results Test Result Range Automated blood [...] Status Pt. Type Provider Facility Loc./Unit Complaint [id number] 06/25/2017 14:03:00 06/25/2017 14:03:00 DIS Outpatient REMINGTON BILLS, [facility] [id number] 02/26/2019 09:00:00 02/26/2019 23:59:59 CLS Preadmit Danny GRAVES MD [facility] AFIB [id number] 02/26/2019 07:48:00 02/26/2019 10:27:00 DIS Outpatient Danny GRAVES MD Via [facility] [id number] 02/25/2019 11:00:00 02/25/2019 23:59:59 CLS Preadmit LITZY HATFIELD MD Via [facility] CARD AFIB [id number] 11/26/2018 10:27:00 02/24/2019 00:01:00 DIS Outpatient LITZY HATFIELD MD [facility] CARD AFIB [id number] 02/16/2019 08:48:00 02/16/2019 23:59:59 CLS Outpatient Danny GRAVES MD Via [facility] CARD [facility] [id number] 12/12/2018 06:52:00 12/12/2018 23:59:59 CLS Outpatient LITZY HATFIELD MD Via [facility] CATH AFIB, SSS [id number] 03/19/2019 12:00:00 PEN Preadmit ELY BILLS, Danny VILLA [facility] CATH SINUS NODE DYSFUCTION [id number] 01/14/2018 07:37:16 04/29/2018 10:42:00 DIS R LETY MANSFIELD [facility] RAMO PT Vestibular [id number] 12/24/2017 09:41:01 ACT Unknown [id number] 02/04/2019 16:56:27 02/04/2019 23:59:59 CLS Outpatient Trinidad Goldberg [id number] 11/20/2018 10:14:05 11/20/2018 23:59:59 CLS Outpatient Hayder Encinas [id number] 04/17/2018 09:03:05 04/17/2018 23:59:59 CLS Outpatient Hayder Encians [id number] 11/05/2017 18:57:49 11/05/2017 23:59:59 CLS Outpatient Shantell Freed [id number] 09/12/2017 10:36:49 09/12/2017 23:59:59 CLS Outpatient Hayder Encinas [id number] 08/29/2017 10:27:02 08/29/2017 23:59:59 CLS Outpatient Hayder Encinas [id number] 08/15/2017 09:14:58 08/15/2017 23:59:59 CLS Outpatient Hayder nEcinas [id number] 04/16/2017 09:32:29 04/16/2017 23:59:59 CLS Outpatient Hayder Encinas [id number] 02/13/2017 14:23:33 02/13/2017 23:59:59 CLS Outpatient Trinidad Goldberg [id number] 04/06/2016 09:19:08 04/06/2016 23:59:59 CLS Outpatient Hayder Encinas [id number] 10/21/2015 09:51:05 10/21/2015 23:59:59 CLS Outpatient Frank Rojas [id number] 09/19/2015 11:49:06 09/19/2015 23:59:59 CLS Outpatient Hayder Encinas [id number] 07/29/2015 09:57:28 07/29/2015 23:59:59 CLS Outpatient Hayder Encinas [id number] 03/28/2015 22:14:03 03/28/2015 23:59:59 CLS Outpatient Hayder Encinsa [id number] 12/27/2014 14:50:34 12/27/2014 23:59:59 CLS Outpatient Hayder Encinas [id number] 07/09/2014 09:54:00 07/09/2014 23:59:59 CLS Outpatient Hayder Encinas [id number] 04/21/2014 12:50:09 04/21/2014 23:59:59 CLS Outpatient Ti Celso [id number] 04/06/2014 11:46:17 04/06/2014 23:59:59 CLS Outpatient Celso Luke [id number] 03/30/2014 11:11:01 03/30/2014 23:59:59 CLS Outpatient SherrieglorialyricHayder [id number] 01/29/2014 10:12:56 01/29/2014 23:59:59 CLS Outpatient Hayder Encinas [id number] 09/28/2013 15:05:53 09/28/2013 23:59:59 CLS Outpatient Tessa Solis
[2019-03-19] MEDS ORDERED: ceFAZolin INJECTION 0 MG ONE (10:37)
[2019-03-19] MEDS ORDERED: NS IV 1000 ML 1,000 ML ONE (10:38)
[2019-03-19] MEDS ORDERED: LIDOCAINE 1% INJ 20 ML 20 ML VIAL ONE (10:38)
[2019-03-19] MEDS ORDERED: HEParin (CATH LAB) 1,000 ML IV ONE (10:38)
[2019-03-19 10:53] VITALS: BP 138/74
[2019-03-19] MEDS ORDERED: NS IV 1000 ML 1,000 ML IV ONE (11:01)
[2019-03-19] MEDS ORDERED: BACITRACIN INJECTION 50,000 UNIT, SODIUM CHLORIDE 0.9% IRRIGATIO 500 ML IR ONE ×2 (11:15)
[2019-03-19 11:18] LABS: HEMOGLOBIN 16.2 G/DL (13.3-17.7); MEAN PLATELET VOLUME 9.6 FL (7.4-10.4); RED CELL DISTRIBUTION WIDTH 12.9 % (10.0-14.5); WHITE BLOOD COUNT 7.2 10^3/uL (4.3-11.0)
[2019-03-19 11:24] LABS: INR 1.9 (0.8-1.4); PROTHROMBIN TIME PATIENT 22.2 SEC (12.2-14.7)
[2019-03-19 11:31] LABS: ALANINE AMINOTRANSFERASE 42 U/L (0-55); ALBUMIN 4.5 GM/DL (3.2-4.5); ALKALINE PHOSPHATASE 63 U/L (40-136); BILIRUBIN,TOTAL 1.5 MG/DL (0.1-1.0); BUN/CREATININE RATIO 16; CALCIUM 9.9 MG/DL (8.5-10.1); CARBON DIOXIDE 22 MMOL/L (21-32); CHLORIDE 105 MMOL/L (98-107); CREATININE SERUM 1.17 MG/DL (0.60-1.30); GFR ESTIMATED > 60; GLUCOSE 91 MG/DL (70-105); POTASSIUM 4.4 MMOL/L (3.6-5.0); SODIUM 139 MMOL/L (135-145); TOTAL PROTEIN 7.1 GM/DL (6.4-8.2)
[2019-03-19] MEDS ORDERED: VANCOMYCIN INJECTION 1,000 MG in NS (IVPB) 250 ML IV ONE (11:45)
[2019-03-19] MEDS ORDERED: fentaNYL INJECTION 100 MCG/2 ML AMP ONE (14:07)
[2019-03-19] MEDS ORDERED: MIDAZOLAM 5 MG/5 ML (VERSED) VIAL ONE (14:07)
[2019-03-19] MEDS ORDERED: NEO/POLY/BAC (NEOSPORIN) OINT 15 GM TUBE ONE (15:41)
--- NOTE | 2019-03-19 16:00 | Cardiac Procedure Note-CS/ASA ---
Pre-Procedure Note Pre-Op Procedure Note H&P Reviewed The H&P was reviewed, patient examined and no changes noted. Date H&P Reviewed: Mar 19, 2019 Time H&P Reviewed: 12:00 Conscious Sedation Pre-Proced Time 12:00 ASA Score 3 For ASA 3 and 4: Consider anesthesia and medical clearance. Also, for patients with a history of failed moderate sedation consider anesthesia. Airway Lungs Heart ASA score ASA 1: a normal healthy patient ASA 2: a patient with a mild systemic disease (mid diabetes, controlled hypertension, obesity ASA 3: a patient with a severe systemic disease that limits activity (angina, COPD, prior Myocardial infarction) ASA 4: a patient with an incapacitating disease that is a constant threat to life (CHF, renal failure) ASA 5: a moribund patient not expected to survive 24 hrs. (ruptured aneurysm) ASA 6: a declared brain- patient whose organs are being harvested. For emergent operations, add the letter E after the classification Mallampati Classification Grade 1 Sedation Plan Analgesia, Amnesia, Plan communicated to team members, Discussed options with patient/fam, Discussed risks with patient/fam The patient is an appropriate candidate to undergo the planned procedure, sedation, and anesthesia. The patient immediately re-assessed prior to indication. Danny GRAVES MD Mar 19, 2019 16:00
--- NOTE | 2019-03-19 16:05 | Permanent Pacemaker Implant ---
Dual Chamber Pacemaker Implant PROCEDURE PHYSICIAN: Kiara Villatoro MD DUAL CHAMBER PACEMAKER IMPLANTATION: DATE OF PROCEDURE: 03/19/19 INDICATION: severe symptomatic sinus node dysfunction. PREOPERATIVE DIAGNOSIS:severe symptomatic sinus node dysfunction. POSTOPERATIVE DIAGNOSIS:successful dual-chamber permanent pacemaker. HISTORY: this is a 63-year-old gentleman with history of persistent atrial fibrillation status post successful electrical cardioversion. 30 day event monitor showed severe sinus node dysfunction. The patient was symptomatic.Dual-chamber permanent pacemaker was recommended. PROCEDURE PERFORMED: 1. Dual-chamber permanent pacemaker implantation. 2. Fluoroscopy. 3. Central venous access. ANESTHESIA: Local anesthesia, conscious sedation. COMPLICATIONS: None. ESTIMATED BLOOD LOSS:20 mL. SPECIMENS: None. ORAL ANTICOAGULATION: None. FLUOROSCOPY TIME:5.24 minutes. FLUOROSCOPY DOSE:144 mgy. CONTRAST DOSE:none. PROCEDURE DETAILS: The patient is a 63 male and after all of the patients questions were answered, the patient was brought to the EP Lab. The patient's left chest was prepped and draped in sterile fashion. A 2 inch horizontal incision was made 1 cm below the clavicle and dissection carried down to the pectoralis fascia. Using the modified Seldinger technique and under fluoroscopy guidance, the ante rior aspect of the left axillary vein was accessed 2 times. The J wires were secured to the drapes with a mosquito clamp. A 7-[place] sheath was introduced over one of the J-wires. The RV lead was then inserted. The RV lead was directed across the tricuspid valve to the apical septal portion of the right ventricle. The position was checked in BRUNILDA and EVANGELISTA views. The screw was deployed and the lead connected to the labview programmer. Close sensing and pacing thresholds were obtained. Diaphragmatic pacing was ruled out. The lead was secured with 2-0 silk ties to the underlying muscle and fascia. Next, a 7-[place] sheath was introduced through the remaining J-wire. An atrial lead was then introduced and guided to the level of the right appendage. The screw was deployed and the lead was connected to the interrogator. Good sensing and pacing thresholds were obtained. Diaphragmatic pacing was ruled out. The leads were secured with 2-0 silk ties to the underlying muscle and fascia. The leads were connected to the device in a hermetic fashion. The device and leads were placed in the pocket. Aggressive irrigation with saline solution was done. The device was secured to the underlying muscle and fascia with a 2-0 silk tie. interrogation of the device revealed good integrity of all the leads and good connections. The wound was then closed using 2 layers. The first layer was interrupted 2-0 absorbable Vicryl suture. The last layer was a single subcuticular layer with 4- 0 Vicryl suture. Half inch Steri-Strips and a small dressing were then applied to the wound. The patient tolerated the procedure well and was returned to the recovery room in stable condition with stable vital signs. DEVICE INFORMATION: [employer] IPG [id number] Nasrin Fitz[address] DR MRI RA LEAD: model number [id number], length 52, serial number [id number]. [employer]. RV LEAD: model number [id number], length 58, serial number [id number], [employer]. PER-OPERATIVE DEVICE INTERROGATION: right atrial capture not done due to atrial flutter. Impedance 560 ohms. P wave 2.5 mV. RV capture 0.4 ms, 0.875 V. Impedance 988 ohms. R-wave 13.0 mV. IMMEDIATE POSTOPERATIVE DEVICE INTERROGATION: right atrium: P wave 2.1 mV. Impedance 551 ohms. Capture threshold not done due to atrial flutter. Right ventricule: R-wave 14.6 mV, pacing impedance 1026 ohms. Pacing threshold 1.0 V at 0.4 ms. PLAN: The patient transferred to the ICU. We will continue with two more doses of IV antibiotics. We will check a chest x-ray and interrogate the device in the morning. The patient will continue on oral antibiotics for 5 days. Kiara Villatoro MD, [facility], CCDS Cardiac Electrophysiology Danny VILLATORO MD Mar 19, 2019 16:05
[2019-03-19] MEDS ORDERED: NS IV 1000 ML 1,000 ML IV SCH (16:07)
[2019-03-19 16:15] VITALS: BP 130/82
[2019-03-19] MEDS ORDERED: PATIENT MAY USE OWN MEDS, ALL PO SCH (16:15)
[2019-03-19 16:30] VITALS: BP 127/85
[2019-03-19 16:45] VITALS: BP 117/78
--- NOTE | 2019-03-19 16:45 | Diagnostic Imaging Report ---
PATIENT HISTORY: post ppm. TECHNIQUE: Single frontal view of the chest COMPARISON: 12/12/2018 FINDINGS: Lung volumes are normal. No focal consolidation is seen. There is no pleural effusion or pneumothorax. The cardiac silhouette is normal in size. A left-sided pacemaker is in place with leads in expected position. A calcified granuloma is noted in the right lung. No acute osseous abnormality is seen. IMPRESSION: Left-sided pacemaker placement with no pneumothorax seen. Dictated by: Dictated on workstation # [id number]
[2019-03-19 17:00] VITALS: BP 127/78
[2019-03-19] MEDS ORDERED: CATHETER FLUSH 10 ML SYR IV PRN (17:45)
[2019-03-19 20:00] VITALS: BP 139/84
[2019-03-19] MEDS ORDERED: IBUPROFEN 600 MG (MOTRIN) TAB PO PRN (20:00)
[2019-03-19] MEDS ORDERED: ACETAMINOPHEN 325 MG TABLET PO PRN (20:00)
[2019-03-19] MEDS: VANCOMYCIN INJECTION 1,000 MG in NS (IVPB) 250 ML IV SCH (20:20)
[2019-03-19] MEDS ORDERED: DRONEDARONE TABLET 400 MG TABLET PO SCH (21:00)
[2019-03-19] MEDS ORDERED: PRAMIPEXOLE 0.5 MG TAB (MIRAPEX) PO SCH (21:00)
[2019-03-20] VITALS: BP 135/86
[2019-03-20 04:00] VITALS: BP 138/79
[2019-03-20 05:23] LABS: HEMOGLOBIN 16.2 G/DL (13.3-17.7); MEAN PLATELET VOLUME 9.7 FL (7.4-10.4); RED CELL DISTRIBUTION WIDTH 12.6 % (10.0-14.5); WHITE BLOOD COUNT 9.9 10^3/uL (4.3-11.0)
[2019-03-20 05:48] LABS: ALANINE AMINOTRANSFERASE 34 U/L (0-55); ALBUMIN 4.1 GM/DL (3.2-4.5); ALKALINE PHOSPHATASE 64 U/L (40-136); BILIRUBIN,TOTAL 1.4 MG/DL (0.1-1.0); BUN/CREATININE RATIO 14; CALCIUM 9.2 MG/DL (8.5-10.1); CARBON DIOXIDE 24 MMOL/L (21-32); CHLORIDE 105 MMOL/L (98-107); CREATININE SERUM 1.17 MG/DL (0.60-1.30); GFR ESTIMATED > 60; GLUCOSE 95 MG/DL (70-105); POTASSIUM 4.3 MMOL/L (3.6-5.0); SODIUM 137 MMOL/L (135-145); TOTAL PROTEIN 6.7 GM/DL (6.4-8.2)
[2019-03-20] MEDS: VANCOMYCIN INJECTION 1,000 MG in NS (IVPB) 250 ML IV SCH (08:30)
[2019-03-20] MEDS ORDERED: DRONEDARONE TABLET 400 MG TABLET PO SCH (09:00)
[2019-03-20] MEDS ORDERED: lisINopril 10 MG (PRINIVIL) TABLET PO SCH ×2 (09:00)
[2019-03-20] MEDS ORDERED: MULTIVIT W/MINERALS TAB (THERAGRAN M) PO SCH ×2 (09:00)
[2019-03-20] MEDS ORDERED: CLIN300C11 PO (09:20)
[2019-03-20 10:57] VITALS: BP 138/79
--- NOTE | 2019-03-20 18:38 | Cardiology Discharge Summary ---
Diagnosis/Chief Complaint Date of Admission 03/19/2019 Date of Discharge 03/20/2019 Admission Diagnosis Severe symptomatic sinus node dysfunction Final/Discharge Diagnosis Successful dual-chamber permanent pacemaker implantation Chief Complaint/HPI Chief Complaint/HPI This is a 63-year-old gentleman with history of atrial fibrillation. Symptomatic severe sinus node dysfunction. Dual-chamber permanent pacemaker is recommended Discharge Summary Procedures Successful dual-chamber permanent pacemaker. Discharge Physical Examination Normal upper chest area. No bleeding or hematoma. Hospital Course Was the Problem List Reviewed?: Yes Negative chest x-ray for pneumothorax. Normal device interrogation this morning. Normal telemetry. Discussion & Recommendations Discussion Discharge took over 30 where to complete. Detailed examination. Discussing the procedure. Discharge instructions were discussed at length. Follow up appt.: Wound check with RN in one week. Dr. Villatoro. Device interrogation in one month. Dicharge Diet: Cardiac Diet Activity as Tolerated: Yes Home Medications Reviewed patient Home Medication Reconciliation performed by pharmacy medication reconciliations systems protection technician and/or nursing. Patients Allergies have been reviewed. Discharge Home Medications: Reviewed and agree with Discharge Medication list on patient's Discharge Instruction sheet Condition at discharge Stable Instructions to patient/family Discussed at length. Danny VILLATORO MD Mar 20, 2019 18:38
[2019-03-20] MEDS ORDERED: RIVAROXABAN 20 MG TABLET (XARELTO) PO SCH ×2 (21:00)
[2019-03-20] MEDS ORDERED: PRAMIPEXOLE 0.25 MG PO SCH (21:00)
== END 2019-03-20 10:15 | disposition home or self-care (01) ==
LOC: CATH 09:36 → ICU 16:22 → CATH 03-20 10:15
PROVIDERS: ATTEND Internal Medicine Interventional Cardiology
DX: I49.5 Sick sinus syndrome (principal); I48.91 Unspecified atrial fibrillation; Z88.0 Allergy status to penicillin; Z79.899 Other long term (current) drug therapy
CPT/HCPCS: 33208; 36415; 71045; 80053; 85027; 85610; 85730; 87081; 93005

== ENCOUNTER → 2019-05-07 | Day surgery (SDC) | payer BC ==
[~2019-05-07] VITALS: Ht 177.8 cm; Wt 95.5 kg
[~2019-05-07] MED LIST changes: +CLIN300C11 PO; +LISI-552 PO; +MIDAZOLAM 2 MG/2 ML (VERSED) VIAL IVP ONE; +MIDAZOLAM 2 MG/2 ML (VERSED) VIAL ONE; +NS IV 1000 ML 1,000 ML IV ONE; +NS IV 1000 ML 1,000 ML ONE; +proPOfol 200 MG/20 ML (DIPRIVAN) VIAL IV ONE; +proPOfol 500 MG/50 ML (DIPRIVAN) VIAL IV ONE
[2019-05-07 08:35] VITALS: BP 139/92
[2019-05-07 09:41] VITALS: BP 140/95
--- NOTE | 2019-05-07 10:55 | Anesthesia-Procedure Note ---
Procedures/Interventions Procedure Start/Stop/Diagnosis Date of Procedure: May 07, 2019 Start Time: 09:23 Referring Physician: Dr Villatoro Preprocedural Diagnosis: A-fib/Atrial flutter Brief History Anesthesia Note () Called to semiconductor lab technician for sedation for a cardioversion. Brief history obtained from patient and Dr Villatoro and NPO status verified. Midazolam 2 mg IV and propofol 80 mg IV in divided doses given for sedation. Cardioversion x 3 with return to sinus rhythm after 3rd attempt. Pt tolerated the procedure well and maintained spontaneous ventilation throughout. Will be available as needed. Stop Time: 09:30 JUNG/Cardioversion Anesthesia Type: MAC ASA Class: 3 Medications Midazolam 2 mg IV, Propofol 80 mg IV Monitors and Equipment: BP Cuff - Left, Continuous EKG, End Tidal CO2, IV, Pulse Oximeter, V Lead EKG YOSELIN FUNES DO May 07, 2019 10:55
--- NOTE | 2019-05-07 10:55 | Anesthesia-General Post-Op ---
MAC Patient Condition Mental Status/LOC: Same as Preop Cardiovascular: Satisfactory Nausea/Vomiting: Absent Respiratory: Satisfactory Pain: Controlled Complications: Absent Post Op Complications Complications None Follow Up Care/Instructions Patient Instructions None needed. Anesthesiology Discharge Order Discharge Order Patient is doing well, no complaints, stable vital signs, no apparent adverse anesthesia problems. YOSELIN FUNES DO May 07, 2019 10:55
--- NOTE | 2019-05-07 15:37 | Cardioversion ---
Cardioversion PROCEDURE PHYSICIAN: Kiara Villatoro MD DATE OF PROCEDURE: 05/07/19 DIRECT EXTERNAL ELECTRICAL CARDIOVERSION: Indications: Typical atrial flutter with rapid ventricular rate Preoperative diagnoses: Typical atrial flutter with rapid ventricular rate Postoperative diagnosis: Sinus rhythm, Successful Electrical Cardioversion History: 63-year-old gentleman with paroxysmal atrial fibrillation and typical atrial flutter. Anesthesia: By Anesthesia services Complications: None Specimen: None Contrast: 0 Flouroscopy: none Procedure Details: The patient was brought the labor relations specialist after informed consent was taken, all the risks and complications were explained including the risk of stroke. Electrical cardioversion was carried out with anesthesia support with propofol. 200 joules of synchronized shock was delivered through external patches which promptly restored sinus rhythm. The patient tolerated the procedure well. Conclusions: 1.Successful Cardioversion. 2.Continue oral anticoagulation and rate controlling agent. 3.Follow up in office in 7-14 days. Kiara Villatoro MD, RS, CCDS Cardiac Electrophysiology Danny VILLATORO MD May 07, 2019 15:37
== END ==
LOC: CATH 07:54
PROVIDERS: ATTEND Internal Medicine Interventional Cardiology
DX: I48.3 Typical atrial flutter (principal); I48.0 Paroxysmal atrial fibrillation; Z88.0 Allergy status to penicillin; Z79.01 Long term (current) use of anticoagulants; Z79.899 Other long term (current) drug therapy
CPT/HCPCS: 92960; 93005

== ENCOUNTER 2019-06-01 06:51 | Day surgery (SDC) | payer BC ==
[2019-06-01] VITALS (12 sets, daily range): BP systolic 116–145; BP diastolic 66–82
[~2019-06-01] VITALS: Ht 178 cm; Wt 95.0 kg
[~2019-06-01 06:51] MED LIST changes: -LATA7.5D; +LATA7.5D OS; -MIDAZOLAM 2 MG/2 ML (VERSED) VIAL IVP ONE; -MIDAZOLAM 2 MG/2 ML (VERSED) VIAL ONE; -NS IV 1000 ML 1,000 ML IV ONE; -NS IV 1000 ML 1,000 ML ONE; -proPOfol 200 MG/20 ML (DIPRIVAN) VIAL IV ONE; -proPOfol 500 MG/50 ML (DIPRIVAN) VIAL IV ONE
[2019-06-01] MEDS ORDERED: NS IV 1000 ML 1,000 ML IV SCH (06:59)
[2019-06-01] MEDS ORDERED: ISOPROTERENOL 0.2 MG/D5W 50 ML IV ONE (07:00)
[2019-06-01] MEDS ORDERED: NS IV 1000 ML 1,000 ML ONE ×3 (07:02→10:20)
[2019-06-01] MEDS ORDERED: LIDOCAINE 1% INJ 20 ML 20 ML VIAL ONE (07:02)
[2019-06-01] MEDS ORDERED: HEParin (CATH LAB) 2,000 ML IV ONE (07:02)
[2019-06-01 07:23] LABS: HEMOGLOBIN 16.4 G/DL (13.3-17.7); MEAN PLATELET VOLUME 9.3 FL (7.4-10.4); RED CELL DISTRIBUTION WIDTH 12.9 % (10.0-14.5); WHITE BLOOD COUNT 7.8 10^3/uL (4.3-11.0)
[2019-06-01] MEDS ORDERED: ONDANSETRON 4 MG/2 ML (SDV) Z0FRAN ONE (07:34)
[2019-06-01] MEDS ORDERED: proPOfol 200 MG/20 ML (DIPRIVAN) VIAL IV ONE (07:34)
[2019-06-01] MEDS ORDERED: MIDAZOLAM 2 MG/2 ML (VERSED) VIAL ONE (07:34)
[2019-06-01] MEDS ORDERED: LISI10TA2 PO (07:38)
[2019-06-01 07:44] LABS: ALANINE AMINOTRANSFERASE 29 U/L (0-55); ALBUMIN 4.4 GM/DL (3.2-4.5); ALKALINE PHOSPHATASE 74 U/L (40-136); BILIRUBIN,TOTAL 0.8 MG/DL (0.1-1.0); BUN/CREATININE RATIO 12; CALCIUM 9.5 MG/DL (8.5-10.1); CARBON DIOXIDE 26 MMOL/L (21-32); CHLORIDE 107 MMOL/L (98-107); CREATININE SERUM 1.13 MG/DL (0.60-1.30); GFR ESTIMATED > 60; GLUCOSE 110 MG/DL (70-105); POTASSIUM 4.4 MMOL/L (3.6-5.0); SODIUM 143 MMOL/L (135-145); TOTAL PROTEIN 7.4 GM/DL (6.4-8.2)
[2019-06-01 07:46] LABS: INR 1.9 (0.8-1.4); PROTHROMBIN TIME PATIENT 22.7 SEC (12.2-14.7)
--- NOTE | 2019-06-01 07:49 | NUR ---
SPOKE WITH PT (HE HAD HIS BOTTLES) TO COMPLETE THE MED REC. PT WAS ABLE TO TELL ME HOW/WHEN HE TAKES HIS MEDS WELL THE OTC HE TAKES. THE FOLLOWING ARE FILL DATES: 09-22-2018 CITALOPRAM #90/90DS [facility] (PT'S INDICATES HE "GOT AHEAD" ON THIS MED BUT SHE IS ADAMANT HE TAKES IT ONCE DAILY) 04-06-2019 PRAMIPEXOLE #90/90DS [facility] 04-11-2019 LATANOPROST #1 BOTTLE CARDINAL DRUG 04-17-2019 LISINOPRIL #180/90DS [facility] 05-06-2019 XARELTO #90/90DS [facility] 05-12-2019 MULTAQ #30/30DS CARDINAL DRUG OTC MEDS: MTV: 1 DAILY DIPHENHYDRAMINE: 1 HS PRN SLEEP MELATONIN: 1 HS PRN SLEEP OMEPRAZOLE: 1 DAILY PRN IBUPROFEN 200M TABS TID PRN
[2019-06-01] MEDS ORDERED: SEVOFLURANE (ULTANE) 15 ML INHAL SOLN ONE (09:02)
[2019-06-01] MEDS ORDERED: PATIENT MAY USE OWN MEDS, ALL PO SCH (10:45)
--- NOTE | 2019-06-01 10:45 | Electrophysiology Procedure ---
EP Procedure DATE OF SERVICE:06/01/19 CARDIAC MOBILE PRODUCT MANAGER: Kiara Villatoro MD, [facility], [facility]. INDICATION: Typical atrial flutter, persistent atrial fibrillation, dual-chamber permanent pacemaker. PREOPERATIVE DIAGNOSIS:Typical atrial flutter, persistent atrial fibrillation, dual-chamber permanent pacemaker. POSTOPERATIVE DIAGNOSES: 1. Successful Cardioversion for persistent atrial fibrillation. 2. Typical atrial flutter ablation. HISTORY: This is a 63-year-old gentleman who has dual-chamber permanent pacemaker. Persistent atrial fibrillation. Typical atrial flutter was noted. The patient is scheduled for direct external electrical cardioversion for persistent atrial fibrillation followed by EP study and typical atrial flutter ablation. PROCEDURE PERFORMED: 1. Comprehensive EP study with induction. 2. Fluoroscopy. 3.Left atrial pacing and recording. 4. Drug infusion. 5. Ablation of typical atrial flutter. 6. Comprehensive 3D mapping with the carto system. 7. Direct external electrical cardioversion before the procedure for persistent atrial fibrillation. 8. Dual-chamber permanent pacemaker programming to AAI before ablation. 9. Dual-chamber permanent pacemaker reprogramming to AAIR-DDDR 50bpm. COMPLICATION: None. ESTIMATED BLOOD LOSS: 10 mL. CONTRAST USED: None. FLUOROSCOPY TIME: 9.6 minutes. FLUOROSCOPY DOSE: 128 mgy. SPECIMENS: None. ANESTHESIA: Done by our anesthesia colleagues. ANTICOAGULATION: Uninterrupted oral anti-coagulation. PROCEDURE IN DETAIL: After informed consent was taken, the patient was brought to the EP lab. Anesthesia was provided by our anesthesia colleagues. The patient was draped and prepped in the usual sterile fashion. The patient presented to the EP lab in atrial fibrillation.The patient was an uninterrupted oral anticoagulation therapy for at least the last one month. Direct external electrical cardioversion was performed at 200 J which converted the patient to atrial paced rhythm. The dual-chamber permanent pacemaker was programmed to AAI 50 BPM. Access was gained in the right femoral vein with a 6-Montenegrin and an 8-Montenegrin sheath. Left access in left femoral vein was gained with 5-Montenegrin and 6-Montenegrin sheath respectively. High right atrial catheter was an ablation catheter, right ventricular catheter was placed, his catheter and the CS catheter were also placed. A comprehensive EP study was done including a left atrial pacing and recording which did not reveal a left lateral pathway. Dual AV greyson physiology was not demonstrated. Typical atrial flutter was not induced with rapid atrial pacing with and without Isuprel infusion. A 3D electroanatomic mapping was donewith the carto system. Ablation was performed in the cavotricuspid isthmus.CS pacing and pacing from the ablation catheter at different positions on the lateral side of the ablation line were used to verify bidirectional block. We then waited for 30 minutes and rechecked and confirmed bidirectional block.Isuprel was given post-procedure, however, we could not induce atrial flutter.The patienttolerated the procedure well and did not have any complication. The dual-chamber permanent pacemaker was reprogrammed to DDDR-AAIR 50bpm.The patientleft the lab in sinus rhythm. Total ablation time was 23 minutes and 50 seconds. MEASUREMENTS/EP STUDY: AA interval 1036 ms, AH interval 88 ms, HV interval 49 ms, NE interval 194 ms, QRS duration 84 ms, QT interval 439 ms, R-R interval 1044 ms, AV Wenckebach at cycle length 560 ms, Retrograde Wenckebach when pacing at cycle length 380 ms. Left atrial pacing, AV Wenckebach when pacing at 420 ms, AV greyson ERP 600/480 ms, Retrograde ERP was 600/350 ms, On Isuprel infusion, AV Wenckebach when pacing at 350 ms. On Isuprel infusion, AV greyson ERP was 450/280 ms. PLAN: The patient will be observed overnight and will be discharged home tomorrow with precise followup instructions. Kiara Villatoro MD, [facility], CCDS Cardiac Electrophysiology Danny VILLATORO MD Jun 01, 2019 10:45 am
--- NOTE | 2019-06-01 10:50 | History & Physicial-Cardiolgy ---
HPI-Cardiology Cardiology Consultation: Date of Consultation 06/01/19 Date of Admission Attending Physician Danny Villatoro MD Admitting Physician Hayder Encinas MD Consulting Physician Danny VILLATORO MD HPI: Time Seen by a Provider: 08:00 Chief Complaint: Persistent atrial fibrillation, typical atrial flutter. This is a 63-year-old gentleman who has symptomatic sinus node dysfunction with bradycardia resulting in permanent pacemaker implantation on 03/19/2019. The patient has persistent atrial fibrillation and continues on Xarelto and multaq. Elective external electrical cardioversion is planned. Patient had an episode of typical atrial flutter on EKG. Typical atrial flutter ablation is recommended. Review of Systems-Cardiology Review of Systems Constitutional: As described under HPI; No As described under HPI, No no symptoms reported, No chills, No fever, No lightheadedness Eyes: No As described under HPI, No no symptoms reported, No blindness, No blurred vision, No contact lenses, No drainage, No decreased acuity, No foreign body sensation, No pain, No vision change Ears/Nose/Throat: No As described under HPI, No no symptoms reported, No chronic hearing loss, No ear discharge, No ear pain, No nasal drainage, No ulcerations Respiratory: No no symptoms reported; As described under HPI; No As described under HPI, No cough, No orthopnea, No shortness of breath, No SOB with excertion Cardiovascular: No no symptoms reported; As described under HPI; No As described under HPI, No chest pain, No edema, No irregular heart rate, No lightheadedness, No palpitations Gastrointestinal: No no symptoms reported, No As described under HPI, No abdomen distended, No abdominal pain, No blood streaked bowels, No constipation, No diarrhea, No nausea, No vomiting, No stool coloration changes Genitourinary: No As described under HPI, No burning, No dysuria, No discharge, No frequency, No flank pain, No hematuria, No urgency Skin: No rash, No skin related problems, No ulcerations Psychiatric/Neurological: No anxiety, No depression, No seizure, No focal weakness, No syncope Hematologic: No bleeding abnormalities NNP-Xzciyf-Jnnbul Hx Patient Social History Alcohol Use: Denies Use Recreational Drug Use: No Smoking Status: Never a Smoker 2nd Hand Smoke Exposure: No Recent Foreign Travel: No Recent Infectious Disease Expo: No Past Medical History PMH As described under Assessment. Allergies and Home Medications Allergies Coded Allergies: Penicillins (Unverified Allergy, Unknown, 11/26/18) Home Medications Citalopram Hydrobromide 20 Mg Tablet, 20 MG PO DAILY, (Reported) Diphenhydramine HCl 25 Mg Capsule, 25 MG PO HS PRN for SLEEP, (Reported) Dronedarone HCl 400 Mg Tablet, 400 MG PO BID, (Reported) Ibuprofen 200 Mg Capsule, 600 MG PO TID PRN for PAIN-MODERATE, (Reported) Latanoprost/Pf 7.5 Ml Drops, 1 DROP OS HS, (Reported) Lisinopril 10 Mg Tablet, 20 MG PO DAILY, (Reported) TAKES 2 (10MG) TABS TO EQUAL 20MG DAILY Melatonin/Pyridoxine HCl (B6) 1 Each Tablet, 1 EACH PO HS, (Reported) Multivitamin 1 Each Tablet, 1 EACH PO DAILY, (Reported) Omeprazole 20 Mg Tablet.dr, 20 MG PO DAILY PRN for STOMACH UPSET, (Reported) Pramipexole Di-HCl 0.25 Mg Tablet, 0.25 MG PO 1900, (Reported) Rivaroxaban 20 Mg Tablet, 20 MG PO 1800, (Reported) Patient Home Medication List Home Medication List Reviewed: Yes Physical Exam-Cardiology Physical Exam Vital Signs/I&O Capillary Refill : Constitutional: appears stated age; No apparent distress; well-developed, well- nourished HEENT: PERRL; No discharge; hearing is well preserved, oral hygience is good; No ulceration, No xanthelasmas are seen Neck: No carotid bruit; carotid pulses are 2 + bilaterally Respiratory: chest is bilaterally symmetric, lungs clear to auscultation Cardiovascular: irregularly irregular, S1 and S2 Gastrointestinal: soft, audible bowel sounds; No spleenomegaly Rectal: deferred Extremities: normal range of motion, non-tender, normal inspection; No clubbing, No cyanosis; no lower extremity edema bilateral; No significant edema Neurologic/Psychiatric: no motor/sensory deficits, alert, normal mood/affect, oriented x 3, power is 5/5 both on sides Skin: normal color, warm/dry; No rash, No ulcerations Data Review Labs Laboratory Tests 06/01/19 07:14: White Blood Count 7.8, Red Blood Count 5.35, Hemoglobin 16.4, Hematocrit 45, Mean Corpuscular Volume 85, Mean Corpuscular Hemoglobin 31, Mean Corpuscular Hemoglobin Concent 36, Red Cell Distribution Width 12.9, Platelet Count 267, Mean Platelet Volume 9.3, Prothrombin Time 22.7H, INR Comment 1.9H, Activated Partial Thromboplast Time 44H, Sodium Level 143, Potassium Level 4.4, Chloride Level 107, Carbon Dioxide Level 26, Anion Gap 10, Blood Urea Nitrogen 14, Creatinine 1.13, Estimat Glomerular Filtration Rate > 60, BUN/Creatinine Ratio 12, Glucose Level 110H, Calcium Level 9.5, Corrected Calcium 9.2, Total Bilirubin 0.8, Aspartate Amino Transf (AST/SGOT) 26, Alanine Aminotransferase (ALT/SGPT) 29, Alkaline Phosphatase 74, Total Protein 7.4, Albumin 4.4 ECG Impression ECG Initial ECG Impression: Atrial Fibrillation A/P-Cardiology Assessment/Admission Diagnosis Persistent atrial fibrillation, typical atrial flutter, Sinus node dysfunction with bradycardia. Admission Status: Observation Plan Persistent atrial fibrillation, on uninterrupted oral anticoagulation therapy for the last one month. Direct external cardioversion is recommended. Typical atrial flutter: Typical atrial flutter ablation is planned. Danny VILLATORO MD Jun 01, 2019 10:50 am
[2019-06-01] MEDS ORDERED: morphine INJ 10 MG/ML 1ML (SYR OR VIAL) IVP ONE (11:15)
[2019-06-01] MEDS ORDERED: MEPERIDINE (DEMEROL) INJ 50 MG/ML IVP ONE (11:15)
[2019-06-01] MEDS ORDERED: ONDANSETRON 4 MG/2 ML (SDV) Z0FRAN IVP PRN (11:15)
--- NOTE | 2019-06-01 11:40 | Anesthesia-General Post-Op ---
General Patient Condition Mental Status/LOC: Same as Preop Cardiovascular: Satisfactory Nausea/Vomiting: Absent Respiratory: Satisfactory Pain: Controlled Complications: Absent Post Op Complications Complications None Follow Up Care/Instructions Patient Instructions None needed. Anesthesia/Patient Condition Patient Condition Patient is doing well, no complaints, stable vital signs, no apparent adverse anesthesia problems. No complications reported per nursing. KATYA NGUYEN CRNA Jun 01, 2019 11:40
--- NOTE | 2019-06-01 12:10 | NUR ---
PT TO [facility] VIA BED ACCOMPANIED BY TERRITORY BUSINESS MANAGER VALDEMAR VALLEJO. BEDSIDE REPORT RECEIVE. PT AWAKE AND ALERT IN BED. CALL LIGHT GIVEN, PT INTRODUCED TO SURROUNDINGS. WILL CONTINUE TO MONITOR.
[2019-06-01] MEDS: NS IV 1000 ML 1,000 ML IV SCH ×2 (12:35→20:31)
[2019-06-01] MEDS ORDERED: RIVAROXABAN 20 MG TABLET (XARELTO) PO SCH ×2 (17:00→18:00)
[2019-06-01] MEDS ORDERED: IBUPROFEN 600 MG (MOTRIN) TAB PO PRN (18:30)
[2019-06-01] MEDS ORDERED: PRAMIPEXOLE 0.25 MG PO SCH (19:00)
[2019-06-01] MEDS ORDERED: diphenhydrAMINE 25 MG TAB (BENADRYL) PO PRN (21:00)
[2019-06-01] MEDS ORDERED: DRONEDARONE TABLET 400 MG TABLET PO SCH (21:00)
[2019-06-01] MEDS ORDERED: NON-FORMULARY MEDICATION 1 EA EA (Latanoprost/Pf (Latanoprost 0.005% Eye Drop) 1 DROP) OS SCH (21:00)
[2019-06-01] MEDS ORDERED: MELATONIN 3 MG TABLET PO SCH (21:00)
[2019-06-01] MEDS ORDERED: RT-ALBUTEROL/IPRATROPIUM 3 ML (DUONEB) VIAL ONE (23:37)
[2019-06-02] VITALS: BP 159/63
[2019-06-02] MEDS ORDERED: RT-ALBUTEROL/IPRATROPIUM 3 ML (DUONEB) VIAL INH ONE
[2019-06-02] MEDS ORDERED: TEMAZEPAM 7.5 MG CAP (RESTORIL) PO ONE
[2019-06-02 04:00] VITALS: BP 133/71
[2019-06-02 04:22] LABS: HEMOGLOBIN 14.1 G/DL (13.3-17.7); MEAN PLATELET VOLUME 9.4 FL (7.4-10.4); RED CELL DISTRIBUTION WIDTH 12.7 % (10.0-14.5); WHITE BLOOD COUNT 13.3 10^3/uL (4.3-11.0)
[2019-06-02 04:49] LABS: BUN/CREATININE RATIO 12; CALCIUM 8.2 MG/DL (8.5-10.1); CARBON DIOXIDE 20 MMOL/L (21-32); CHLORIDE 109 MMOL/L (98-107); CREATININE SERUM 0.95 MG/DL (0.60-1.30); GFR ESTIMATED > 60; GLUCOSE 100 MG/DL (70-105); POTASSIUM 3.7 MMOL/L (3.6-5.0); SODIUM 139 MMOL/L (135-145)
[2019-06-02] MEDS: NS IV 1000 ML 1,000 ML IV SCH (06:54)
[2019-06-02] MEDS ORDERED: MULTIVIT W/MINERALS TAB (THERAGRAN M) PO SCH (07:00)
--- NOTE | 2019-06-02 08:58 | Cardiology Discharge Summary ---
Diagnosis/Chief Complaint Date of Admission 06/01/2019 Date of Discharge 06/02/2019 Admission Diagnosis Persistent atrial fibrillation, typical atrial flutter. Final/Discharge Diagnosis Persistent atrial fibrillation, typical atrial flutter ablation. Chief Complaint/HPI Chief Complaint/HPI This is a 63-year-old gentleman who has symptomatic sinus node dysfunction with bradycardia resulting in permanent pacemaker implantation on 03/19/2019. The patient has persistent atrial fibrillation and continues on Xarelto and multaq. Elective external electrical cardioversion is planned. Patient had an episode of typical atrial flutter on EKG. Typical atrial flutter ablation is recommended. Discharge Summary Procedures 1. Direct external electrical cardioversion which was successful in converting persistent atrial fibrillation to sinus rhythm. 2. Successful typical atrial flutter ablation. Discharge Physical Examination Normal cardiovascular examination. Hospital Course Was the Problem List Reviewed?: Yes Unremarkable. Pending Labs Laboratory Tests 06/02/19 04:10: White Blood Count 13.3, Red Blood Count 4.55, Hemoglobin 14.1, Hematocrit 39, Mean Corpuscular Volume 86, Mean Corpuscular Hemoglobin 31, Mean Corpuscular Hemoglobin Concent 36, Red Cell Distribution Width 12.7, Platelet Count 197, Mean Platelet Volume 9.4, Sodium Level 139, Potassium Level 3.7, Chloride Level 109, Carbon Dioxide Level 20, Anion Gap 10, Blood Urea Nitrogen 11, Creatinine 0.95, Estimat Glomerular Filtration Rate > 60, BUN/Creatinine Ratio 12, Glucose Level 100, Calcium Level 8.2 Discussion & Recommendations Discussion Discharge took over 30 minutes to complete. Discharge instructions were discussed at length with the patient and family. The procedure that was done yesterday was discussed at length. Future plan was discussed at length which includes possible atrial fibrillation ablation in July 2019. Also sleep study. I will see the patient in 3-4 weeks. Follow up appt.: Dr. Villatoro in 3-4 weeks. Dicharge Diet: Cardiac Diet Activity as Tolerated: Yes Home Medications Reviewed patient Home Medication Reconciliation performed by pharmacy medication reconciliations nursing technician and/or nursing. Patients Allergies have been reviewed. Discharge Home Medications: Reviewed and agree with Discharge Medication list on patient's Discharge Instruction sheet Condition at discharge Stable. Instructions to patient/family Discussed at length with the patient and family. Danny VILLATORO MD Jun 02, 2019 08:58
[2019-06-02 08:59] VITALS: BP 126/72
--- NOTE | 2019-06-02 08:59 | Discharge Inst-Post CATH ---
Discharge Inst-CATH/EP Problems Reviewed?: Yes Final Diagnosis Typical atrial flutter, Persistent AF Post Cardiac Cath/EP D/C Inst Follow Up/Plan Dr Villatoro in three to four weeks. <b>CARDIAC CATH/EP PROCEDURE DISCHARGE INSTRUCTIONS</b> ACTIVITY * Go Home directly and rest. * Limit activity of the leg (or wrist if it was used) for 7 days including aerobics, swimming, jogging, bicycling, etc. * Restrict stair-climbing for 7 days if possible, if not, climb up with your non-cath leg, then bring together on the same step. * Avoid lifting, pushing, pulling or excessive movement of the affected extremity for 7 days. * Customary sexual activity may be resumed after 2 days-use caution not to use a position that strains or causes pain to the affected extremity. * No driving for 24 hours. * NO SMOKING. * Avoid straining for bowel movements for 7 days. * Gentle walking on level ground is allowed. * Returning to work will depend on the type of procedure and the results. Your doctor will discuss this with you. CALL YOUR DOCTOR FOR ANY OF THE FOLLOWING: *If bleeding from the puncture site occurs- Apply gentle pressure to site with clean cloth and call your doctor or EMS. * If a knot or lump forms under the skin, increases in size, or causes pain. * If bruising appears to be worsening or moving further down your leg instead of disappearing. * Temperature above 101 F. CARE OF YOUR GROIN INCISION; * Bruising or purple discoloration of the skin near the puncture site is common. * You may shower only, no bathtub bathing for 5 days. Be careful to avoid slipping as your leg may feel stiff. * If a closure device was used on your femoral artery, please see the attached guide regarding care of the device and your leg. * Leave dressing on FOR 24 hours. CARE OF YOUR WRIST INCISION; * Bruising or purple discoloration of the skin near the puncture site is common. * You may shower. * DO NOT submerge wrist. * Leave dressing on FOR 24 hours. Danny VILLATORO MD Jun 02, 2019 08:59
[2019-06-02] MEDS ORDERED: lisINopril 10 MG (PRINIVIL) TABLET PO SCH (09:00)
[2019-06-02] MEDS ORDERED: PANTOPRAZOLE 20 MG TABLET (PROTONIX) PO PRN (09:00)
== END 2019-06-02 10:45 ==
LOC: CATH 06:51 → CSD 12:36 → CATH 06-02 10:45
PROVIDERS: ATTEND Internal Medicine Interventional Cardiology
DX: I48.3 Typical atrial flutter (principal); I48.19 Other persistent atrial fibrillation; I49.5 Sick sinus syndrome; R00.1 Bradycardia, unspecified; Z95.818 Presence of other cardiac implants and grafts; Z88.0 Allergy status to penicillin; Z79.899 Other long term (current) drug therapy
CPT/HCPCS: 36415; 80048; 80053; 85027; 85610; 85730; 87081; 92960; 93005; 93613; 93621; 93623; 93653; 94640

== ENCOUNTER 2019-07-27 06:58 | Day surgery (SDC) | payer BC ==
[~2019-07-27] VITALS: Ht 177.8 cm; Wt 95.4 kg
[2019-07-27] VITALS (13 sets, daily range): BP systolic 104–153; BP diastolic 60–95
[2019-07-27] MEDS ORDERED: HEParin 1000 UNIT/ML (10ML VIAL) FOR BOLUS ONE ×3 (07:02→10:37)
[2019-07-27] MEDS ORDERED: NS IV 1000 ML 1,000 ML ONE ×3 (07:03→12:13)
[2019-07-27] MEDS ORDERED: NS IV 1000 ML 3,000 ML ONE (07:03)
[2019-07-27] MEDS ORDERED: LIDOCAINE 1% INJ 20 ML 20 ML VIAL ONE (07:03)
[2019-07-27] MEDS ORDERED: ISOPROTERENOL 0.2 MG/D5W 50 ML IV ONE (07:15)
[2019-07-27] MEDS ORDERED: proPOfol 200 MG/20 ML (DIPRIVAN) VIAL IV ONE (07:16)
[2019-07-27] MEDS ORDERED: MIDAZOLAM 2 MG/2 ML (VERSED) VIAL ONE (07:17)
[2019-07-27] MEDS ORDERED: ROCURONIUM 10 MG/ML 5 ML SYRINGE IV ONE ×2 (07:17→10:43)
[2019-07-27] MEDS ORDERED: fentaNYL INJECTION 100 MCG/2 ML AMP ONE (07:17)
[2019-07-27] MEDS ORDERED: SUCCINYLCHOLINE INJ 100 MG/5 ML SYR ONE (07:17)
[2019-07-27] MEDS ORDERED: SEVOFLURANE (ULTANE) 15 ML INHAL SOLN ONE ×4 (07:18→12:57)
[2019-07-27] MEDS ORDERED: HEParin DRIP 25000 UNIT/500ML 500 ML IV ONE (07:28)
[2019-07-27 07:29] LABS: HEMOGLOBIN 17.1 G/DL (13.3-17.7); MEAN PLATELET VOLUME 9.4 FL (7.4-10.4)
--- NOTE | 2019-07-27 07:53 | NUR ---
SPOKE WITH THE PT (HE HAD HIS BOTTLES) WELL CALLING [facility] TO COMPLETE THE MED REC. PT AND HIS WERE ABLE TO TELL ME HOW/WHEN HE TAKES EACH MED, AND THIS MATCHES WITH THE DATES AND DIRECTIONS FROM THE PHARMACY. THE FOLLOWING ARE FILL DATES FROM [facility] MAIL ORDER: 04-17-2019 LISINOPRIL #180/90DS 05-06-2019 XARELTO #90/90DS 06-19-2019 CITALOPRAM #90/90DS 07-06-2019 PRAMIPEXOLE #90/90DS 07-14-2019 LATANOPROST #2 BOTTLES/90DS PT GETS MULTAQ A SAMPLE, WHEN THE OFFICE OPENS UP I WILL VERIFY AND GET DATES AND A QTY AND UPDATE NEEDED. OTC MEDS: BENADRYL MELATONIN OMEPRAZOLE MTV IBUPROFEN Addendum: 07/28/19 at 0932 by ERIN HENDRICKSON towel distributor SPOKE WITH DR. MCCARTY OFFICE ABOUT THE MULTAQ SAMPLE. THEY SAID YES THEY HAVE SAMPLES AND THE PT REQUESTED THEM ON 07-01-2019 AND THEY WOULD HAVE GIVEN THEM TO HIM- HOWEVER THEY COULDNT NOT TELL ME AN EXACT DATE OR HOW MANY. WHEN I TALKED TO THE PT HE HAD A SAMPLE CARD THAT WAS FULL.
[2019-07-27 07:54] LABS: ALANINE AMINOTRANSFERASE 37 U/L (0-55); ALBUMIN 4.7 GM/DL (3.2-4.5); ALKALINE PHOSPHATASE 69 U/L (40-136); BILIRUBIN,TOTAL 1.1 MG/DL (0.1-1.0); BUN/CREATININE RATIO 9; CALCIUM 9.4 MG/DL (8.5-10.1); CARBON DIOXIDE 25 MMOL/L (21-32); CHLORIDE 106 MMOL/L (98-107); CREATININE SERUM 1.35 MG/DL (0.60-1.30); GFR ESTIMATED 53; GLUCOSE 104 MG/DL (70-105); POTASSIUM 4.2 MMOL/L (3.6-5.0); SODIUM 140 MMOL/L (135-145); TOTAL PROTEIN 7.5 GM/DL (6.4-8.2)
[2019-07-27 07:55] LABS: PROTHROMBIN TIME PATIENT 23.2 SEC (12.2-14.7)
[2019-07-27] MEDS ORDERED: PROTAMINE 50 MG/5 ML VIAL ONE (12:25)
[2019-07-27] MEDS ORDERED: NEOSTIGMINE 3 MG/3 ML VIAL ONE (12:37)
[2019-07-27] MEDS ORDERED: GLYCOPYRROLATE 0.2 MG/ML (ROBINUL) 2 ML VIAL ONE (12:37)
[2019-07-27] MEDS ORDERED: ONDANSETRON 4 MG/2 ML (SDV) Z0FRAN ONE (12:37)
[2019-07-27] MEDS ORDERED: LACTATED RINGERS 1,000 ML IV ONE (12:39)
--- NOTE | 2019-07-27 12:46 | History & Physicial-Cardiolgy ---
HPI-Cardiology Cardiology Consultation: Date of Consultation 07/27/19 Date of Admission Attending Physician Danny Graves MD Admitting Physician Ray Marx MD Consulting Physician Danny GRAVES MD HPI: Time Seen by a Provider: 08:00 Chief Complaint: Symptomatic persistent atrial fibrillation This is a 63-year-old gentleman with symptomatic persistent atrial fibrillation. Review of Systems-Cardiology Review of Systems Constitutional: As described under HPI; No As described under HPI, No no symptoms reported, No chills, No fever, No lightheadedness Eyes: No As described under HPI, No no symptoms reported, No blindness, No blurred vision, No contact lenses, No drainage, No decreased acuity, No foreign body sensation, No pain, No vision change Ears/Nose/Throat: No As described under HPI, No no symptoms reported, No chronic hearing loss, No ear discharge, No ear pain, No nasal drainage, No ulcerations Respiratory: No no symptoms reported; As described under HPI; No As described under HPI, No cough, No orthopnea, No shortness of breath, No SOB with excertion Cardiovascular: No no symptoms reported; As described under HPI; No As described under HPI, No chest pain, No edema, No irregular heart rate, No l ightheadedness; palpitations Gastrointestinal: No no symptoms reported, No As described under HPI, No abdo men distended, No abdominal pain, No blood streaked bowels, No constipation, No diarrhea, No nausea, No vomiting, No stool coloration changes Genitourinary: No As described under HPI, No burning, No dysuria, No discharge, No frequency, No flank pain, No hematuria, No urgency Skin: No rash, No skin related problems, No ulcerations Psychiatric/Neurological: No anxiety, No depression, No seizure, No focal weakness, No syncope Hematologic: No bleeding abnormalities ZQE-Vnqmrb-Ehdntd Hx Patient Social History Alcohol Use: Denies Use Recreational Drug Use: No Smoking Status: Never a Smoker 2nd Hand Smoke Exposure: No Recent Foreign Travel: No Recent Infectious Disease Expo: No Past Medical History PMH As described under Assessment. Allergies and Home Medications Allergies Coded Allergies: Penicillins (Unverified Allergy, Unknown, 11/26/18) Home Medications Citalopram Hydrobromide 20 Mg Tablet, 20 MG PO DAILY, (Reported) Diphenhydramine HCl 25 Mg Capsule, 25 MG PO HS PRN for SLEEP, (Reported) Dronedarone HCl 400 Mg Tablet, 400 MG PO BID, (Reported) Ibuprofen 200 Mg Capsule, 600 MG PO TID PRN for PAIN-MODERATE, (Reported) Latanoprost/Pf 7.5 Ml Drops, 1 DROP OS HS, (Reported) Lisinopril 10 Mg Tablet, 20 MG PO DAILY, (Reported) TAKES 2 (10MG) TABS TO EQUAL 20MG DAILY Melatonin/Pyridoxine HCl (B6) 1 Each Tablet, 1 EACH PO HS, (Reported) Multivitamin 1 Each Tablet, 1 EACH PO DAILY, (Reported) Omeprazole 20 Mg Tablet.dr, 20 MG PO DAILY PRN for STOMACH UPSET, (Reported) Pramipexole Di-HCl 0.25 Mg Tablet, 0.25 MG PO 1899, (Reported) Rivaroxaban 20 Mg Tablet, 20 MG PO 1999, (Reported) Patient Home Medication List Home Medication List Reviewed: Yes Physical Exam-Cardiology Physical Exam Vital Signs/I&O 07/27/19 07:21 Temp 36.8 Pulse 68 Resp 20 B/P (MAP) 153/95 (114) Pulse Ox 98 O2 Delivery Room Air Capillary Refill : Constitutional: appears stated age; No apparent distress; well-developed, well- nourished HEENT: PERRL; No discharge; hearing is well preserved, oral hygience is good; No ulceration, No xanthelasmas are seen Neck: No carotid bruit; carotid pulses are 2 + bilaterally Respiratory: chest is bilaterally symmetric, lungs clear to auscultation Cardiovascular: irregularly irregular, S1 and S2 Gastrointestinal: soft, audible bowel sounds; No spleenomegaly Rectal: deferred Extremities: normal range of motion, non-tender, normal inspection; No clubbing, No cyanosis; no lower extremity edema bilateral; No significant edema Neurologic/Psychiatric: no motor/sensory deficits, alert, normal mood/affect, oriented x 3, power is 5/5 both on sides Skin: normal color, warm/dry; No rash, No ulcerations Data Review Labs Laboratory Tests 07/27/19 07:22: White Blood Count 8.0, Red Blood Count 5.63, Hemoglobin 17.1, Hematocrit 48, Mean Corpuscular Volume 85, Mean Corpuscular Hemoglobin 30, Mean Corpuscular Hemoglobin Concent 36, Red Cell Distribution Width 13.0, Platelet Count 270, Mean Platelet Volume 9.4, Prothrombin Time 23.2H, INR Comment 2.0H, Activated Partial Thromboplast Time 43H, Sodium Level 140, Potassium Level 4.2, Chloride Level 106, Carbon Dioxide Level 25, Anion Gap 9, Blood Urea Nitrogen 12, Creatinine 1.35H, Estimat Glomerular Filtration Rate 53, BUN/Creatinine Ratio 9, Glucose Level 104, Calcium Level 9.4, Corrected Calcium , Total Bilirubin 1.1H, Aspartate Amino Transf (AST/SGOT) 33, Alanine Aminotransferase (ALT/SGPT) 37, Alkaline Phosphatase 69, Total Protein 7.5, Albumin 4.7H ECG Impression ECG Initial ECG Impression: Atrial Fibrillation A/P-Cardiology Assessment/Admission Diagnosis Symptomatic persistent atrial fibrillation Admission Status: Observation Plan Symptomatic persistent atrial fibrillation, atrial fibrillation ablation is recommended and planned. Informed consent was taken. Danny GRAVES MD Jul 27, 2019 12:46 pm POS
--- NOTE | 2019-07-27 12:59 | Electrophysiology Procedure ---
EP Procedure DATE OF SERVICE:07/27/19 CARDIAC BRADDISHER: Kiara Villatoro MD, [facility] INDICATION: symptomatic persistent atrial fibrillation refractory to antiarrhythmic therapy. PREOPERATIVE DIAGNOSIS: symptomatic persistent atrial fibrillation refractory to antiarrhythmic therapy. POSTOPERATIVE DIAGNOSES: successful persistent atrial fibrillation ablation. HISTORY: this is a 63-year-old male with symptomatic persistent atrial fibrillation. Assisted atrial fibrillation ablation is recommended. PROCEDURE PERFORMED: 1. Comprehensive EP study with induction. 2. Fluoroscopy. 3. left atrial pacing and recording. 4. Left ventricular pacing and recording. 5. Drug infusion. 6. Pulmonary vein isolation. 7. Additional atrial fibrillation ablation with CFAE ablation. 8. Comprehensive 3D mapping with the carto system. 9. Intracardiac Echocardiogram. 10. Dual-chamber permanent pacemaker was programmed to VVIR at the beginning of the case. 11. Dual-chamber permanent pacemaker was reprogrammed to MVP mode at the end of the case. Complete interrogation was done. COMPLICATION: None. ESTIMATED BLOOD LOSS: 10 mL. CONTRAST USED: None. FLUOROSCOPY TIME: 9.36 minutes. FLUOROSCOPY DOSE: 88 mgy. SPECIMENS: None. ANESTHESIA: Done by our anesthesia colleagues. ANTICOAGULATION: Uninterrupted oral anticoagulation and IV heparin. PROCEDURE IN DETAIL: After informed consent was taken, the patient was brought to the EP lab. Anesthesia was provided by our anesthesia colleagues. The patient was draped and prepped in the usual sterile fashion. The patient presented to the EP lab in atrial fibrillation. Access was gained in the right femoral vein with a 8 Greenlandic and a 7 Greenlandic sheath. Left access in the left femoral vein with a 10 Greenlandic and 6 Greenlandic sheath respectively. His Catheter and ICE catheter were advanced from the left access sites. CS multipolar catheter was advanced placed in the CS from the right access site. A guidewire was advanced into the SVC. Long sheath was advanced on top of the guidewire into the SVC. The wire was taken out. We then went in with the transseptal needle. Under fluoroscopic and intracardiac echocardiogram guidance, the sheath and transseptal needle were pulled into the fossa ovalis. Transseptal puncture was done. This was confirmed with left atrial pressure measurements. The transseptal needle was taken out and we decided to proceed with the procedure. IV heparin was given and ACT was kept over 350 seconds. The guidewire was taken out and a BiosBlendspaceter Pentaray catheter was advanced for left atrial mapping. We also used the intracardiac echocardiogram to create an ultrasound shell of the left atrium and identified all vital landmarks including the left atrial appendage, left pulmonary veins, right pulmonary veins, mitral valve, fossa ovalis, aortic cusps. With this multipolar mapping catheter left atrial voltage and electro anatomical map was created. Since the patient was in persistent atrial fibrillation, CFAE points were also collected. The multipolar mapping catheter was then taken out and and irrigated ablation catheter was advanced into the left atrium. Pulmonary vein isolation was performed of the left pulmonary veins. We then started on the right pulmonary veins. However in the posterior right mid wall, where there were much of fragmented signals, ablation resulted in conversion to sinus rhythm. Right-sided pulmonary veins were isolated as well. Complex fractionated atrial electrograms were identified and ablated. Bidirectional block in both left and right sided pulmonary veins was confirmed. This was done with high output pacing in each pulmonary vein. High-dose Isuprel was started at 8mg/minute. Rapid atrial pacing did not induce atrial fibrillation. After 30 minutes of ablation we rechecked the veins and reconfirmed exit block. Comprehensive EP study was done. Left atrial pacing did not demonstrate any evidence of left-sided bypass tract. Left ventricular pacing and recording was also done. A 3D electroanatomic mapping was donewith the carto system. Throughout the procedure, intracardiac echocardiogram did not demonstrate any pericardial effusion.The patienttolerated the procedurewell and did not have any complication. The patientleft the lab in sinus rhythm. Total ablation time was 32 minutes. MEASUREMENTS/EP STUDY: AA interval 892 ms, QRS duration 152 ms, QT interval 520 ms, R-R interval 877 ms, HV interval 41 ms, AV Wenckebach when pacing at 490 ms, Retrograde Wenckebach when pacing at 340 ms, Atrial ERP was 550/260 ms, Ventricular ERP was 550/330 ms PLAN: The patient will be observed overnight and will be discharged home tomorrow with precise followup instructions. she will continue oral anticoagulation and sotalol and follow-up in the office in 2-3 weeks. Kiara Villatoro MD, [facility] Cardiac Electrophysiology Danny VILLATORO MD Jul 27, 2019 12:59 pm POS
[2019-07-27] MEDS ORDERED: PATIENT MAY USE OWN MEDS, ALL PO SCH (13:00)
[2019-07-27] MEDS: NS IV 1000 ML 1,000 ML IV SCH ×2 (15:35→22:48)
[2019-07-27] MEDS ORDERED: RIVAROXABAN 20 MG TABLET (XARELTO) PO SCH ×4 (17:00→20:00)
[2019-07-27] MEDS ORDERED: NON-FORMULARY MEDICATION 1 EA EA (Diphenhydramine HCl (Benadryl) 25 MG) PO PRN (17:45)
[2019-07-27] MEDS ORDERED: NON-FORMULARY MEDICATION 1 EA EA (Ibuprofen 600 MG) PO PRN (17:45)
[2019-07-27] MEDS: DRONEDARONE TABLET 400 MG TABLET PO SCH (18:05)
[2019-07-27] MEDS ORDERED: PANTOPRAZOLE 20 MG TABLET (PROTONIX) PO PRN (18:15)
[2019-07-27] MEDS ORDERED: diphenhydrAMINE 25 MG TAB (BENADRYL) PO PRN (18:15)
[2019-07-27] MEDS ORDERED: IBUPROFEN 600 MG (MOTRIN) TAB PO PRN (18:15)
[2019-07-27] MEDS ORDERED: PRAMIPEXOLE 0.25 MG TABLET PO SCH (19:00)
[2019-07-27] MEDS ORDERED: NON-FORMULARY MEDICATION 1 EA EA (Pramipexole Di-HCl (Pramipexole Dihydrochloride) 0.25 MG PO SCH (19:00)
[2019-07-27] MEDS ORDERED: LATANOPROST 0.005% (XALATAN) OPHTH SOLN 2.5 ML OS SCH (21:00)
[2019-07-27] MEDS ORDERED: MELATONIN 3 MG TABLET PO SCH (21:00)
[2019-07-27] MEDS ORDERED: NON-FORMULARY MEDICATION 1 EA EA (Latanoprost/Pf (Latanoprost 0.005% Eye Drop) 1 DROP) OS SCH (21:00)
[2019-07-28 00:15] VITALS: BP 129/75
[2019-07-28 02:59] LABS: HEMOGLOBIN 13.7 G/DL (13.3-17.7); MEAN PLATELET VOLUME 9.5 FL (7.4-10.4); RED CELL DISTRIBUTION WIDTH 13.2 % (10.0-14.5); WHITE BLOOD COUNT 11.7 10^3/uL (4.3-11.0)
[2019-07-28 03:17] LABS: BUN/CREATININE RATIO 14; CALCIUM 8.4 MG/DL (8.5-10.1); CARBON DIOXIDE 22 MMOL/L (21-32); CHLORIDE 108 MMOL/L (98-107); CREATININE SERUM 1.06 MG/DL (0.60-1.30); GFR ESTIMATED > 60; GLUCOSE 110 MG/DL (70-105); SODIUM 140 MMOL/L (135-145)
[2019-07-28 03:40] VITALS: BP 146/77
[2019-07-28 04:00] VITALS: BP 140/89
[2019-07-28] MEDS ORDERED: MULTIVIT W/MINERALS TAB (THERAGRAN M) PO SCH (07:00)
[2019-07-28 08:00] VITALS: BP 146/81
[2019-07-28] MEDS: DRONEDARONE TABLET 400 MG TABLET PO SCH (08:11)
[2019-07-28] MEDS ORDERED: lisINopril 10 MG (PRINIVIL) TABLET PO SCH (09:00)
--- NOTE | 2019-07-28 09:40 | Anesthesia-General Post-Op ---
General Patient Condition Mental Status/LOC: Same as Preop Cardiovascular: Satisfactory Nausea/Vomiting: Absent Respiratory: Satisfactory Pain: Controlled Complications: Absent Post Op Complications Complications None Follow Up Care/Instructions Patient Instructions None needed. Anesthesia/Patient Condition Patient Condition Patient is doing well, no complaints, stable vital signs, no apparent adverse anesthesia problems. No complications reported per nursing. FARRAH SIMMONS CRNA Jul 28, 2019 09:40 POS
--- NOTE | 2019-07-28 10:23 | Cardiology Discharge Summary ---
Diagnosis/Chief Complaint Date of Admission 07/27/2019 Date of Discharge 07/28/2019 Admission Diagnosis symptomatic Persistent AF Final/Discharge Diagnosis Successful persistent atrial fibrillation ablation Chief Complaint/HPI Chief Complaint/HPI This is a 63-year-old gentleman with symptomatic persistent atrial fibrillation. Discharge Summary Procedures 1. PVI, 2. CFAE ablation Successful termination and no further induction of atrial fibrillation on high- dose Isuprel and rapid atrial pacing. Discharge Physical Examination Normal cardiovascular examination Hospital Course Was the Problem List Reviewed?: Yes Mild chest pain with no EKG changes. Likely ablation associated. Responded to ibuprofen. Pending Labs Laboratory Tests 07/28/19 02:30: White Blood Count 11.7, Red Blood Count 4.49, Hemoglobin 13.7, Hematocrit 40, Mean Corpuscular Volume 88, Mean Corpuscular Hemoglobin 31, Mean Corpuscular Hemoglobin Concent 35, Red Cell Distribution Width 13.2, Platelet Count 224, Mean Platelet Volume 9.5, Sodium Level 140, Potassium Level 4.0, Chloride Level 108, Carbon Dioxide Level 22, Anion Gap 10, Blood Urea Nitrogen 15, Creatinine 1.06, Estimat Glomerular Filtration Rate > 60, BUN/Creatinine Ratio 14, Glucose Level 110, Calcium Level 8.4 Discussion & Recommendations Discussion Discharge discussion was done at length. Discharge took over 30 minutes to complete. Patient will continue the same medications. I'll follow-up in 3-4 weeks. He will continue multaq and oral anticoagulation therapy for now. Follow up appt.: Dr. Villatoro in August. Dicharge Diet: Cardiac Diet Activity as Tolerated: Yes Home Medications Reviewed patient Home Medication Reconciliation performed by pharmacy medication reconciliations electronics engineering technician and/or nursing. Patients Allergies have been reviewed. Discharge Home Medications: Reviewed and agree with Discharge Medication list on patient's Discharge Instruction sheet Condition at discharge Stable. Instructions to patient/family Discussed at length with the patient and family. Danny VILLATORO MD Jul 28, 2019 10:23 POS
--- NOTE | 2019-07-28 10:24 | Discharge Inst-Post CATH ---
Discharge Inst-CATH/EP Problems Reviewed?: Yes Final Diagnosis Symptomatic persistent atrial fibrillation, status post-successful ablation. Post Cardiac Cath/EP D/C Inst Follow Up/Plan Early August 2019. <b>CARDIAC CATH/EP PROCEDURE DISCHARGE INSTRUCTIONS</b> ACTIVITY * Go Home directly and rest. * Limit activity of the leg (or wrist if it was used) for 7 days including aerobics, swimming, jogging, bicycling, etc. * Restrict stair-climbing for 7 days if possible, if not, climb up with your non-cath leg, then bring together on the same step. * Avoid lifting, pushing, pulling or excessive movement of the affected extremity for 7 days. * Customary sexual activity may be resumed after 2 days-use caution not to use a position that strains or causes pain to the affected extremity. * No driving for 24 hours. * NO SMOKING. * Avoid straining for bowel movements for 7 days. * Gentle walking on level ground is allowed. * Returning to work will depend on the type of procedure and the results. Your doctor will discuss this with you. CALL YOUR DOCTOR FOR ANY OF THE FOLLOWING: *If bleeding from the puncture site occurs- Apply gentle pressure to site with clean cloth and call your doctor or EMS. * If a knot or lump forms under the skin, increases in size, or causes pain. * If bruising appears to be worsening or moving further down your leg instead of disappearing. * Temperature above 101 F. CARE OF YOUR GROIN INCISION; * Bruising or purple discoloration of the skin near the puncture site is common. * You may shower only, no bathtub bathing for 5 days. Be careful to avoid slipping as your leg may feel stiff. * If a closure device was used on your femoral artery, please see the attached guide regarding care of the device and your leg. * Leave dressing on FOR 24 hours. CARE OF YOUR WRIST INCISION; * Bruising or purple discoloration of the skin near the puncture site is common. * You may shower. * DO NOT submerge wrist. * Leave dressing on FOR 24 hours. Danny GRAVES MD Jul 28, 2019 10:24 POS
--- OUTSIDE RECORDS SUMMARY | 2019-08-21 06:36 | XMS REPORT | Clinical Summary ---
Author Author Admin, Arley Jose [facility] Address Unknown Phone Unavailable Allergies, Adverse Reactions, Alerts Allergy Name Reaction Description Start Date Severity Status Pr ovider PENICILLIN Critical Active Daisy Villarreal MA Conditions or Problems Problem Name Problem Code Onset Date Status Entry Date Provider Comment Standard Description Annotate Dizziness 780.4 Resolved Ray Marx MD Dizziness and giddiness BMI 30-30.9 Active Daisy Villarreal MA Body Mass Index 30.0-30.9, adult Obesity Class I (BMI 30-34.9) Active 8 Daisy Villarreal MA Obesity, unspecified Atrial fibrillation 427.31 Active Ray sage MD Atrial fibrillation Pleural effusion 511.9 Active Ray Sen Unspecified pleural effusion Restless leg syndrome 333.94 Active Ray wakefield MD Restless legs syndrome (RLS) Hypertension, benign essential, controlled 401.1 Acti ve Ray aMrx MD Benign essential hypertension Major depressive disorder, single episode, moderate 311 20 06/06/28 Active Ray Marx MD Depressive disorder, not else where classified Health screening V70.0 Active Ray Sen Routine general medical examination at a health care facility Bronchitis, acute, w or w/o bronchospasm 466.0 Active Jason Rhodes APRN Acute bronchitis Dizziness ICD-780.4 Inactive Ray Marx MD Medication List Medication Instructions Start Date Stop Date Generic Name NDC Status Provider Patient Instruction PREDNISONE 20 MG ORAL TABLET take 40 mg daily for 5 days PREDNISONE 07665058564 Active Jason Rhodes APRN Active ZITHROMAX Z-LUIS 250 MG ORAL TABLET 2 today, then 1 daily for 4 d ays AZITHROMYCIN 27817707167 Active Jason Carmelo SOSAN Acti ve FLUTICASONE PROPIONATE 50 MCG/ACT NASAL SUSPENSION 1 s pray each nostril twice daily for 7 days then daily FLUTICASONE PROPIONATE 000 04687568 Active Jason Rhodes APRN Active MULTIVITAMIN ADULT ORAL TABLET 1 po qd MULTI PLE VITAMINS-MINERALS 52150635535 Active Ray Marx MD Active CITALOPRAM HYDROBROMIDE 20 MG ORAL TABLET 1 po qd CITALOPRAM HYDROBROMIDE 95794725564 Active Ray Marx MD Active PRAMIPEXOLE DIHYDROCHLORIDE 0.25 MG ORAL TABLET 1 po qHS PRN Restless legs PRAMIPEXOLE DIHYDROCHLORIDE 42101201782 Active Ray Marx MD Active XARELTO 20 MG ORAL TABLET 1 po qHS RIVAROXABAN 649331 48807 Active Ray Marx MD Active MULTAQ 400 MG ORAL TABLET 1 po BID DRONEDARONE H CL 16006538851 Active Ray Marx MD Active LISINOPRIL 10 MG ORAL TABLET 2 po qd LISINOPRIL 74081 466868 Active Ray Marx MD Active DOXYCYCLINE HYCLATE 100 MG ORAL CAPSULE 1 cap by mouth twice daily for 10 days DOXYCYCLINE HYCLATE 71200778590 No Longer Active Ray Marx MD Active FUROSEMIDE 20 MG ORAL TABLET 1 tablet by mouth daily for 3 days FUROSEMIDE 17255559026 No Longer Active Ray Marx MD Activ e LATANOPROST SOLUTION 1 drop in left eye at bedtime LATANOPROST SOLN 29411762107 Active Daisy Villarreal MA Active MULTIVITAMINS ORAL CAPSULE 1 po daily MULTIPLE VIT MENCHACA 87905386255 No Longer Active Daisy Villarreal MA Active [facility] MELATONIN 3 MG ORAL TABLET 1 po at bedtime MELATONIN 27979884674 Active Daisy Villarreal MA Active FUROSEMIDE 20 MG ORAL TABLET 1 tablet by mouth daily for 3 days FUROSEMIDE 20 MG ORAL TABLET 493433 FUROSEMIDE Inactive DOXYCYCLINE HYCLATE 100 MG ORAL CAPSULE 1 cap by mouth twice daily for 10 days DOXYCYCLINE HYCLATE 100 MG ORAL CAPSULE 3914370 D OXYCYCLINE HYCLATE Inactive Vital Signs Date Name Value Unit Range Description blood pressure, diastolic, repeated by physician 77 BP huber blood pressure, diastolic 77 mm[Hg] BP huber blood pressure, systolic, repeated by physician 138 BP sys blood pressure, systolic 138 mm[Hg] BP sys height E&M 70 [in_us] Bdy height pulse rate E&M 75 /min Heart rate temperature E&M 98.4 [degF] Body temp erature weight E&M 212 [lb_av] Weight Measure d blood pressure, diastolic, repeated by physician 84 BP huber blood pressure, diastolic 84 mm[Hg] BP huber blood pressure, systolic, repeated by physician 130 BP sys blood pressure, systolic 130 mm[Hg] BP sys height E&M 70 [in_us] Bdy height pulse rate E&M 66 /min Heart rate temperature E&M 98.3 [degF] Body temp erature weight E&M 211.50 [lb_av] Weight Measure d blood pressure, diastolic, repeated by physician 87 BP huber blood pressure, diastolic 87 mm[Hg] BP huber blood pressure, systolic, repeated by physician 135 BP sys blood pressure, systolic 135 mm[Hg] BP sys height E&M 70 [in_us] Bdy height pulse rate E&M 62 /min Heart rate temperature E&M 97.9 [degF] Body temp erature weight E&M 214.31 [lb_av] Weight Measure d Diagnostic Results Date Name Value Unit Range Description Office Visit: Follow up from ER at [facility] 06/03/2019 304 - Chemistry HDL cholesterol, serum, target level 40 mg/dL cholesterol, target level 200 mg/dL triglyceride, target level 150 mg/dL Encounters Code Encounter Date Provider Facility CPT-65511 Level 3 Est. Patient 09:31:41 [facility] Level 4 Est. Patient 13:46:40 CDT Ray Marx MD [facility] CPT-91891 Level 4 Est. Patient 09:38:38 CDT Ray Marx MD [facility] Procedures Code Procedure Name Date Entry Date Standard Desc ription [id number] (4274F 2P) Patient Reason Influenza immu nization not administered 09:15:44 DRAW HAND CPT-13663 Chest, 2 views 13:50:02 CDT
--- OUTSIDE RECORDS SUMMARY | 2019-08-21 06:36 | XMS REPORT | Clinical Summary ---
Author Author Admin, Arley Jose [facility] Address Unknown Phone Unavailable Allergies, Adverse Reactions, [...] benign essential, controlled 401.1 Acti ve Ray Marx MD Benign essential hypertension Major depressive disorder, [...] 40 mg daily for 5 days PREDNISONE 22710918185 No Longer Active Jason Rhodes APRN Active ZITHROMAX Z-LUIS 250 MG ORAL TABLET 2 today, then 1 daily for 4 d ays AZITHROMYCIN 21256564944 No Longer Active Jason Rhodes APRN Active FLUTICASONE PROPIONATE 50 MCG/ACT NASAL SUSPENSION 1 s pray each nostril twice daily for 7 days then daily FLUTICASONE PROPIONATE 000 26967040 Active Jason Rhodes APRN Active MULTIVITAMIN ADULT ORAL TABLET 1 po qd MULTI PLE VITAMINS-MINERALS 16012777821 Active Ray Marx MD Active CITALOPRAM HYDROBROMIDE 20 MG ORAL TABLET 1 po qd CITALOPRAM HYDROBROMIDE 22686177208 Active Ray Marx MD Active PRAMIPEXOLE DIHYDROCHLORIDE 0.25 MG ORAL TABLET 1 po qHS PRN Restless legs PRAMIPEXOLE DIHYDROCHLORIDE 38923134830 Active Ray Marx MD Active XARELTO 20 MG ORAL TABLET 1 po qHS RIVAROXABAN 049795 45044 Active Ray Marx MD Active MULTAQ 400 MG ORAL TABLET 1 po BID DRONEDARONE H CL 60334824493 Active Ray Marx MD Active LISINOPRIL 10 MG ORAL TABLET 2 po qd LISINOPRIL 28256 339660 Active Ray Marx MD Active DOXYCYCLINE HYCLATE 100 MG ORAL CAPSULE 1 cap by mouth twice daily for 10 days DOXYCYCLINE HYCLATE 17940735662 No Longer Active Ray Marx MD Active FUROSEMIDE 20 MG ORAL TABLET 1 tablet by mouth daily for 3 days FUROSEMIDE 05485494857 No Longer Active Ray Marx MD Activ e LATANOPROST SOLUTION 1 drop in left eye at bedtime LATANOPROST SOLN 40681686331 Active Daisy Villarreal MA Active MULTIVITAMINS ORAL CAPSULE 1 po daily MULTIPLE VIT MENCHACA 39650366481 No Longer Active Daisy Villarreal MA Active [facility] MELATONIN 3 MG ORAL TABLET 1 po at bedtime MELATONIN 20219357202 Active Daisy Villarreal MA Active FUROSEMIDE 20 MG ORAL TABLET 1 tablet by mouth daily for 3 days FUROSEMIDE 20 MG ORAL TABLET 672188 FUROSEMIDE Inactive DOXYCYCLINE HYCLATE 100 MG ORAL CAPSULE 1 cap by mouth twice daily for 10 days DOXYCYCLINE HYCLATE 100 MG ORAL CAPSULE 7931809 D OXYCYCLINE HYCLATE Inactive ZITHROMAX Z-LUIS 250 MG ORAL TABLET 2 today, then 1 daily for 4 d ays ZITHROMAX Z-LUIS 250 MG ORAL TABLET 950392 AZITHROMYCIN Inactive PREDNISONE 20 MG ORAL TABLET take 40 mg daily for 5 days PREDNISONE 20 MG ORAL TABLET 651664 PREDNISONE Inactive Vital Signs Date Name Value Unit [...] huber blood pressure, diastolic 84 mm[Hg] BP hubre blood pressure, systolic, repeated by physician 130 [...] Office Visit: Follow up from ER at [facility] 06/03/2019 304 - Chemistry HDL cholesterol, serum, target level 40 mg/dL cholesterol, target level 200 mg/dL triglyceride, target level 150 mg/dL Encounters Code Encounter Date Provider Facility CPT-01724 Level 3 Est. Patient 09:31:41 [employer] [facility] [employer] [facility] Level 4 Est. Patient 13:46:40 CDT Ray Marx MD [facility] CPT-08667 Level 4 Est. Patient 09:38:38 CDT Ray Marx MD [facility] Procedures Code Procedure Name Date Entry Date Standard Desc ription [id number] (4274F 2P) Patient Reason Influenza immu nization not administered 09:15:44 [employer] CPT-68098 Chest, 2 views 13:50:02 CDT
--- OUTSIDE RECORDS SUMMARY | 2019-08-21 06:36 | XMS REPORT | Clinical Summary ---
Author Author Admin, Arley Jose [facility] Address Unknown Phone Unavailable Allergies, Adverse Reactions, [...] 40 mg daily for 5 days PREDNISONE 27853099020 Active Jason Rhodes APRN Active ZITHROMAX Z-LUIS 250 MG ORAL TABLET 2 today, then 1 daily for 4 d ays AZITHROMYCIN 36214332250 Active Jason Carmelo SOSAN Acti ve FLUTICASONE PROPIONATE 50 MCG/ACT NASAL SUSPENSION 1 s pray each nostril twice daily for 7 days then daily FLUTICASONE PROPIONATE 000 10818460 Active Jason Rhodes APRN Active MULTIVITAMIN ADULT ORAL TABLET 1 po qd MULTI PLE VITAMINS-MINERALS 70846640632 Active Ray Marx MD Active CITALOPRAM HYDROBROMIDE 20 MG ORAL TABLET 1 po qd CITALOPRAM HYDROBROMIDE 55538858105 Active Ray Marx MD Active PRAMIPEXOLE DIHYDROCHLORIDE 0.25 MG ORAL TABLET 1 po qHS PRN Restless legs PRAMIPEXOLE DIHYDROCHLORIDE 10970313181 Active Ray Marx MD Active XARELTO 20 MG ORAL TABLET 1 po qHS RIVAROXABAN 708097 36801 Active Ray Marx MD Active MULTAQ 400 MG ORAL TABLET 1 po BID DRONEDARONE H CL 01498135526 Active Ray Marx MD Active LISINOPRIL 10 MG ORAL TABLET 2 po qd LISINOPRIL 64932 469090 Active Ray Marx MD Active DOXYCYCLINE HYCLATE 100 MG ORAL CAPSULE 1 cap by mouth twice daily for 10 days DOXYCYCLINE HYCLATE 79310259126 No Longer Active Ray Marx MD Active FUROSEMIDE 20 MG ORAL TABLET 1 tablet by mouth daily for 3 days FUROSEMIDE 61830180491 No Longer Active Ray Marx MD Activ e LATANOPROST SOLUTION 1 drop in left eye at bedtime LATANOPROST SOLN 04827769514 Active Daisy Villarreal MA Active MULTIVITAMINS ORAL CAPSULE 1 po daily MULTIPLE VIT MENCHACA 96430327542 No Longer Active Daisy Villarreal MA Active [facility] MELATONIN 3 MG ORAL TABLET 1 po at bedtime MELATONIN 62039171940 Active Daisy Villarreal MA Active FUROSEMIDE 20 MG ORAL TABLET 1 tablet by mouth daily for 3 days FUROSEMIDE 20 MG ORAL TABLET 313017 FUROSEMIDE Inactive DOXYCYCLINE HYCLATE 100 MG ORAL CAPSULE 1 cap by mouth twice daily for 10 days DOXYCYCLINE HYCLATE 100 MG ORAL CAPSULE 2461649 D OXYCYCLINE HYCLATE Inactive Vital Signs Date [...] Office Visit: Follow up from ER at [facility] 06/03/2019 304 - Chemistry HDL cholesterol, serum, target level 40 mg/dL cholesterol, target level 200 mg/dL triglyceride, target level 150 mg/dL Encounters Code Encounter Date Provider Facility CPT-27368 Level 3 Est. Patient 09:31:41 [facility] Level 4 Est. Patient 13:46:40 CDT Ray Marx MD [facility] CPT-03557 Level 4 Est. 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
--- OUTSIDE RECORDS SUMMARY | 2019-08-21 06:36 | XMS REPORT | Continuity of Care Document ---
Author Organization Unknown Address Unknown Phone Unavailable Allergies Active Description Code Type Severity Reaction Onset Reported/Identified Relationship to Patient Clinical Status Yes penicillin 3 Drug N/A N/A Yes Penicillins [id number] Drug Aller gy Unknown N/A 11/26/2018 Medications There is no data. Problems Date Dx Coded Attending Type Code Diagnosis Diagnosed By 06/25/2017 ROGERS MACEDO MD M25. 521 Pain in right elbow 06/25/2017 ROGERS MACEDO MD M25. 522 Pain in left elbow 11/19/2017 R42 Dizziness 12/15/2018 LITZY HATFIELD MD, Ot F32. 9 MAJOR DEPRESSIVE DISORDER, SINGLE EPISOD 12/15/2018 LITZY HATFIELD MD, Ot H40. 9 UNSPECIFIED GLAUCOMA 12/15/2018 LITZY HATFIELD MD Ot I08. 1 RHEUMATIC DISORDERS OF BOTH MITRAL AND T 12/15/2018 LITZY HATFIELD MD Ot I10 ESSENTIAL (PRIMARY) HYPERTENSION 12/15/2018 LITZY HATFIELD MD Ot I48. 2 CHRONIC ATRIAL FIBRILLATION 12/15/2018 LITZY HATFIELD MD Ot R00. 1 BRADYCARDIA, UNSPECIFIED 12/15/2018 LITZY HATFIELD MD Ot R26. 81 UNSTEADINESS ON FEET 12/15/2018 LITZY HATFIELD MD Ot R42 DIZZINESS AND GIDDINESS 12/15/2018 LITZY HATFIELD MD Ot Z79. 01 [employer] ATTENDANT (CURRENT) USE OF ANTICOAGULANT 12/15/2018 LITZY HATFIELD MD Ot Z79.899 OTHER [employer] [employer] ATTENDANT (CURRENT) DRUG THERAPY 12/15/2018 LITZY HATFIELD MD, Ot F32. 9 MAJOR DEPRESSIVE DISORDER, SINGLE EPISOD 12/15/2018 LITZY HATFIELD MD Ot H40. 9 UNSPECIFIED GLAUCOMA 12/15/2018 LITZY HATFIELD MD Ot I08. 1 RHEUMATIC DISORDERS OF BOTH MITRAL AND T 12/15/2018 LITZY HATFIELD MD Ot I10 ESSENTIAL (PRIMARY) HYPERTENSION 12/15/2018 LITZY HATFIELD MD Ot I48. 2 CHRONIC ATRIAL FIBRILLATION 12/15/2018 LITZY HATFIELD MD Ot R00. 1 BRADYCARDIA, UNSPECIFIED 12/15/2018 LITZY HATFIELD MD Ot R26. 81 UNSTEADINESS ON FEET 12/15/2018 LITZY HATFIELD MD Ot R42 DIZZINESS AND GIDDINESS 12/15/2018 LITZY HATFIELD MD Ot Z79. 01 CARE HOME (CURRENT) USE OF ANTICOAGULANT 12/15/2018 LITZY HATFIELD MD Ot Z79.899 OTHER CARE HOME (CURRENT) DRUG THERAPY 12/24/2018 LITZY HATFIELD MD Ot F32. 9 MAJOR DEPRESSIVE DISORDER, SINGLE EPISOD 12/24/2018 LITZY HATFIELD MD Ot H40. 9 UNSPECIFIED GLAUCOMA 12/24/2018 LITZY HATFIELD MD Ot I08. 1 RHEUMATIC DISORDERS OF BOTH MITRAL AND T 12/24/2018 LITZY HATFIELD MD Ot I10 ESSENTIAL (PRIMARY) HYPERTENSION 12/24/2018 LITZY HATFIELD MD Ot I48. 2 CHRONIC ATRIAL FIBRILLATION 12/24/2018 LITZY HATFIELD MD Ot R00. 1 BRADYCARDIA, UNSPECIFIED 12/24/2018 LITZY HATFIELD MD Ot R26. 81 UNSTEADINESS ON FEET 12/24/2018 LITZY HATFIELD MD Ot R42 DIZZINESS AND GIDDINESS 12/24/2018 LITZY HATFIELD MD Ot Z79. 01 [place] [employer] ATTENDANT (CURRENT) USE OF ANTICOAGULANT 12/24/2018 LITZY HATFIELD MD Ot Z79.899 OTHER [place] [employer] ATTENDANT (CURRENT) DRUG THERAPY 02/24/2019 LITZY HATFIELD MD Ot F32. 9 MAJOR DEPRESSIVE DISORDER, SINGLE EPISOD 02/24/2019 LITZY HATFIELD MD Ot I08. 1 RHEUMATIC DISORDERS OF BOTH MITRAL AND T 02/24/2019 LITZY HATFIELD MD Ot I10 ESSENTIAL (PRIMARY) HYPERTENSION 02/24/2019 LITZY HATFIELD MD Ot I48. 2 CHRONIC ATRIAL FIBRILLATION 02/24/2019 LITZY HATFIELD MD Ot R00. 1 BRADYCARDIA, UNSPECIFIED 02/24/2019 LITZY HATFIELD MD Ot R07. 9 CHEST PAIN, UNSPECIFIED 02/24/2019 LITZY HATFIELD MD Ot R42 DIZZINESS AND GIDDINESS 02/26/2019 Danny GRAVES MD Ot I10 ESSENTIAL (PRIMARY) HYPERTENSION 02/26/2019 Danny GRAVES MD Ot I48 .1 PERSISTENT ATRIAL FIBRILLATION 02/26/2019 Danny GRAVES MD Ot I48 .3 TYPICAL ATRIAL FLUTTER 02/26/2019 Danny GRAVES MD Ot I49 .5 SICK SINUS SYNDROME 02/26/2019 Danny GRAVES MD Ot R00 .1 BRADYCARDIA, UNSPECIFIED 02/26/2019 Danny GRAVES MD Ot Z79.01 CARE HOME (CURRENT) USE OF ANTICOAGULANT 03/03/2019 Danny GRAVES MD Ot I10 ESSENTIAL (PRIMARY) HYPERTENSION 03/03/2019 Danny GRAVES MD Ot I48 .1 PERSISTENT ATRIAL FIBRILLATION 03/03/2019 Danny GRAVES MD Ot I48 .3 TYPICAL ATRIAL FLUTTER 03/03/2019 Danny GRAVES MD Ot I49 .5 SICK SINUS SYNDROME 03/03/2019 Danny GRAVES MD Ot R00 .1 BRADYCARDIA, UNSPECIFIED 03/03/2019 Danny GRAVES MD Ot Z79.01 [employer] [employer] ATTENDANT (CURRENT) USE OF ANTICOAGULANT 03/05/2019 Danny GRAVES MD Ot I10 ESSENTIAL (PRIMARY) HYPERTENSION 03/05/2019 Danny GRAVES MD Ot I48 .1 PERSISTENT ATRIAL FIBRILLATION 03/05/2019 Danny GRAVES MD Ot I48 .3 TYPICAL ATRIAL FLUTTER 03/05/2019 Danny GRAVES MD Ot I49 .5 SICK SINUS SYNDROME 03/05/2019 Danny GRAVES MD Ot R00 .1 BRADYCARDIA, UNSPECIFIED 03/05/2019 Danny GRAVES MD Ot Z79.01 CARE HOME (CURRENT) USE OF ANTICOAGULANT 03/20/2019 Danny GRAVES MD Ot I48.91 UNSPECIFIED ATRIAL FIBRILLATION 03/20/2019 Danny GRAVES MD Ot I49 .5 SICK SINUS SYNDROME 03/20/2019 Danny GRAVES MD Ot Z79.899 OTHER CARE HOME (CURRENT) DRUG THERAPY 03/20/2019 Danny GRAVES MD Ot Z88 .0 ALLERGY STATUS TO PENICILLIN 03/30/2019 Danny GRAVES MD Ot I48.91 UNSPECIFIED ATRIAL FIBRILLATION 03/30/2019 Danny GRAVES MD Ot I49 .5 SICK SINUS SYNDROME 03/30/2019 Danny GRAVES MD Ot Z79.899 OTHER CARE HOME (CURRENT) DRUG THERAPY 03/30/2019 Danny GRAVES MD Ot Z88 .0 ALLERGY STATUS TO PENICILLIN 03/30/2019 Danny GRAVES MD Ot I48.91 UNSPECIFIED ATRIAL FIBRILLATION 03/30/2019 Danny GRAVES MD Ot I49 .5 SICK SINUS SYNDROME 03/30/2019 Danny GRAVES MD Ot Z79.899 OTHER CARE HOME (CURRENT) DRUG THERAPY 03/30/2019 Danny GRAVES MD Ot Z88 .0 ALLERGY STATUS TO PENICILLIN 04/02/2019 Danny GRAVES MD Ot I48 .1 PERSISTENT ATRIAL FIBRILLATION 04/02/2019 Danny GRAVES MD Ot I49 .5 SICK SINUS SYNDROME 04/02/2019 Danny GRAVES MD Ot R42 DIZZINESS AND GIDDINESS 05/13/2019 Danny GRAVES MD Ot I48 .0 PAROXYSMAL ATRIAL FIBRILLATION 05/13/2019 Danny GRAVES MD Ot I48 .3 TYPICAL ATRIAL FLUTTER 05/13/2019 Danny GRAVES MD Ot Z79.01 CARE HOME (CURRENT) USE OF ANTICOAGULANT 05/13/2019 Danny GRAVES MD Ot Z79.899 OTHER CARE HOME (CURRENT) DRUG THERAPY 05/13/2019 Danny GRAVES MD Ot Z88 .0 ALLERGY STATUS TO PENICILLIN 05/17/2019 Danny GRAVES MD Ot I48 .1 PERSISTENT ATRIAL FIBRILLATION 05/17/2019 Danny GRAVES MD Ot I49 .5 SICK SINUS SYNDROME 05/17/2019 Danny GRAVES MD Ot R42 DIZZINESS AND GIDDINESS 05/23/2019 Danny GRAVES MD Ot I48 .1 PERSISTENT ATRIAL FIBRILLATION 05/23/2019 Danny GRAVES MD Ot I49 .5 SICK SINUS SYNDROME 05/23/2019 Danny GRAVES MD Ot R42 DIZZINESS AND GIDDINESS 06/02/2019 Danny GRAVES MD Ot I48.19 OTHER PERSISTENT ATRIAL FIBRILLATION 06/02/2019 Danny GRAVES MD Ot I48 .3 TYPICAL ATRIAL FLUTTER 06/02/2019 Danny GRAVES MD Ot I49 .5 SICK SINUS SYNDROME 06/02/2019 Danny GRAVES MD Ot R00 .1 BRADYCARDIA, UNSPECIFIED 06/02/2019 Danny GRAVES MD Ot Z79.899 OTHER CARE HOME (CURRENT) DRUG THERAPY 06/02/2019 Danny GRAVES MD Ot Z88 .0 ALLERGY STATUS TO PENICILLIN 06/02/2019 Danny GRAVES MD Ot Z95.818 PRESENCE OF OTHER CARDIAC IMPLANTS AND G 06/03/2019 Danny GRAVES MD Ot I48.19 OTHER PERSISTENT ATRIAL FIBRILLATION 06/03/2019 Danny GRAVES MD Ot I48 .3 TYPICAL ATRIAL FLUTTER 06/03/2019 Danny GRAVES MD Ot I49 .5 SICK SINUS SYNDROME 06/03/2019 Danny GRAVES MD Ot R00 .1 BRADYCARDIA, UNSPECIFIED 06/03/2019 Danny GRAVES MD Ot Z79.899 OTHER [place] [employer] ATTENDANT (CURRENT) DRUG THERAPY 06/03/2019 Danny GRAVES MD Ot Z88 .0 ALLERGY STATUS TO PENICILLIN 06/03/2019 Danny GRAVES MD Ot Z95.818 PRESENCE OF OTHER CARDIAC IMPLANTS AND G 06/03/2019 Danny GRAVES MD Ot I48.19 OTHER PERSISTENT ATRIAL FIBRILLATION 06/03/2019 Danny GRAVES MD Ot I48 .3 TYPICAL ATRIAL FLUTTER 06/03/2019 Danny GRAVES MD Ot I49 .5 SICK SINUS SYNDROME 06/03/2019 Danny GRAVES MD Ot R00 .1 BRADYCARDIA, UNSPECIFIED 06/03/2019 Danny GRAVES MD, Ot Z79.899 OTHER CARE HOME (CURRENT) DRUG THERAPY 06/03/2019 Danny GRAVES MD, Ot Z88 .0 ALLERGY STATUS TO PENICILLIN 06/03/2019 ELY BILLS, Danny VILLA Ot Z95.818 PRESENCE OF OTHER CARDIAC IMPLANTS AND G 06/04/2019 Ayaz Taverasca Charbel Final J18.9 Pneumonia, unspecified organism 06/04/2019 Ayaz Taver[place]a L Final J9 0 Pleural effusion, not elsewhere classified 06/04/2019 Tori Taveras Reason For Visi t R06.02 Shortness of breath 06/04/2019 Tori Taveras L Final R50.9 Fever, unspecified 06/05/2019 I48.0 Atri al fibrillation 06/05/2019 J90 Pleura l effusion 06/05/2019 E66.9 Obes ity Class I (BMI 30-34.9) 06/05/2019 Z68.30 BMI 30-30.9 06/15/2019 F32.1 Janay r depressive disorder, single episode, moderate 06/15/2019 G25.81 Res tless leg syndrome 06/15/2019 I10 Hypert ension, benign essential, controlled 06/15/2019 Z13.9 Heal th screening 06/24/2019 aDnny GRAVES MD Ot I48 .0 PAROXYSMAL ATRIAL FIBRILLATION 06/24/2019 Danny GRAVES MD Ot I48 .3 TYPICAL ATRIAL FLUTTER 06/24/2019 Danny GRAVES MD Ot Z79.01 CARE HOME (CURRENT) USE OF ANTICOAGULANT 06/24/2019 Danny GRAVES MD, Ot Z79.899 OTHER [place] [employer] ATTENDANT (CURRENT) DRUG THERAPY 06/24/2019 Danny GRAVES MD, Ot Z88 .0 ALLERGY STATUS TO PENICILLIN 07/28/2019 Danny GRAVES MD Ot I48.19 OTHER PERSISTENT ATRIAL FIBRILLATION 07/28/2019 Danny GRAVES MD, Ot Z79.899 OTHER [place] [employer] ATTENDANT (CURRENT) DRUG THERAPY 07/28/2019 ELY BILLS, M DAISY Ot Z88 .0 ALLERGY STATUS TO PENICILLIN 07/29/2019 ELY BILLS, M DAISY Ot I48.19 OTHER PERSISTENT ATRIAL FIBRILLATION 07/29/2019 ELY BILLS, M DAISY Ot Z79.899 OTHER [place] [employer] ATTENDANT (CURRENT) DRUG THERAPY 07/29/2019 ELY BILLS, M DAISY Ot Z88 .0 ALLERGY STATUS TO PENICILLIN 07/29/2019 ELY BILLS, M DAISY Ot I48.19 OTHER PERSISTENT ATRIAL FIBRILLATION 07/29/2019 ELY BILLS, M DAISY Ot Z79.899 OTHER [place] [employer] ATTENDANT (CURRENT) DRUG THERAPY 07/29/2019 Danny GRAVES MD DAISY Ot Z88 .0 ALLERGY STATUS TO PENICILLIN 08/02/2019 ELY BILLS, M DAISY Ot I48.19 OTHER PERSISTENT ATRIAL FIBRILLATION 08/02/2019 Danny GRAVES MD Ot Z79.899 OTHER [place] [employer] ATTENDANT (CURRENT) DRUG THERAPY 08/02/2019 ELY BILLS M DAISY Ot Z88 .0 ALLERGY STATUS TO PENICILLIN 08/05/2019 J20.9 Bron chitis, acute, w or w/o bronchospasm Procedures Code Description [place] [id number] X-RA Y EXAM OF ROGERS RIOJAS MD 06/25/2017 Results Test Result Range Automated blood complete blood count (he mogram) panel - 12/12/18 07:45 Blood leukocytes automated count (number/volume) 7.5 10*3/uL 4.3-11.0 Blood erythrocytes automated count (number/volume) 5.37 10*6/uL 4.35-5.85 Venous blood hemoglobin measurement (mass/volume) 16.6 g/dL 13.3-17.7 Blood hematocrit (volume fraction) 46 % 40-54 Automated erythrocyte mean corpuscular volume 85 [ foz_us] 80-99 Automated erythrocyte mean corpuscular h emoglobin (mass per erythrocyte) 31 pg 25-34 Automated erythrocyte mean corpuscular h emoglobin concentration measurement (mass/volume) 36 g/dL 32-36 Automated erythrocyte distribution width ratio 12. 9 % 10.0- 14.5 Automated blood platelet count (count/volume) 245 10*3/uL 130-400 Automated blood platelet mean volume measurement 9.9 [foz_us] 7.4-10.4 PT panel in platelet poor plasma by coag ulation assay - 12/12/18 07:45 Prothrombin time (PT) in platelet poor plasma by coagu lation assay 17.4 s 12.2-14.7 INR in platelet poor plasma or blood by coagulation as say 1.4 0.8-1.4 Activated partial thromboplastin time (a PTT) in platelet poor plasma bycoagulation assay - 12/12/18 07:45 Activated partial thromboplastin time (a PTT) in platelet poor plasma bycoagulation assay 40 s 24-35 Comprehensive metabolic panel - 12/12/18 07:45 Serum or plasma sodium measurement (moles/volume) 139 mmol/L 135-145 Serum or plasma potassium measurement (moles/volume) 4.3 mmol/L 3.6-5.0 Serum or plasma chloride measurement (moles/volume) 107 mmol/L 98-107 Carbon dioxide 24 mmol/L 21-32 Serum or plasma anion gap determination (moles/volume) 8 mmol/L 5-14 Serum or plasma urea nitrogen measurement (mass/volume ) 17 mg/dL 7-18 Serum or plasma creatinine measurement (mass/volume) 1.01 mg/dL 0.60-1.30 Serum or plasma urea nitrogen/creatinine mass ratio 17 NRG Serum or plasma creatinine measurement w ith calculation of estimated glomerular filtration rate > NRG Serum or plasma glucose measurement (mass/volume) 109 mg/dL 70-105 Serum or plasma calcium measurement (mass/volume) 9.8 mg/dL 8.5-10.1 Serum or plasma total bilirubin measurement (mass/volu me) 1.0 mg/dL 0.1-1.0 Serum or plasma alkaline phosphatase manuela surement (enzymatic activity/volume) 64 U/L 40-136 Serum or plasma aspartate aminotransfera se measurement (enzymatic activity/volume) 28 U/L 5-34 Serum or plasma alanine aminotransferase measurement (enzymatic activity/volume) 31 U/L 0-55 Serum or plasma protein measurement (mass/volume) 7.0 g/dL 6.4-8.2 Serum or plasma albumin measurement (mass/volume) 4.3 g/dL 3.2-4.5 CALCIUM CORRECTED 9.6 mg/dL 8.5-10.1 Methicillin resistant Staphylococcus aur eus (MRSA) screening culture - 12/12/18 07:45 Methicillin resistant Staphylococcus aureus (MRSA) scr eening culture NEG NRG Automated blood complete blood count (he mogram) panel - 03/19/19 11:00 Blood leukocytes automated count (number/volume) 7.2 10*3/uL 4.3-11.0 Blood erythrocytes automated count (number/volume) 5.36 10*6/uL 4.35-5.85 Venous blood hemoglobin measurement (mass/volume) 16.2 g/dL 13.3-17.7 Blood hematocrit (volume fraction) 46 % 40-54 Automated erythrocyte mean corpuscular volume 85 [ foz_us] 80-99 Automated erythrocyte mean corpuscular h emoglobin (mass per erythrocyte) 30 pg 25-34 Automated erythrocyte mean corpuscular h emoglobin concentration measurement (mass/volume) 36 g/dL 32-36 Automated erythrocyte distribution width ratio 12. 9 % 10.0- 14.5 Automated blood platelet count (count/volume) 266 10*3/uL 130-400 Automated blood platelet mean volume measurement 9.6 [foz_us] 7.4-10.4 PT panel in platelet poor plasma by coag ulation assay - 03/19/19 11:00 Prothrombin time (PT) in platelet poor plasma by coagu lation assay 22.2 s 12.2-14.7 INR in platelet poor plasma or blood by coagulation as say 1.9 0.8-1.4 Activated partial thromboplastin time (a PTT) in platelet poor plasma bycoagulation assay - 03/19/19 11:00 Activated partial thromboplastin time (a PTT) in platelet poor plasma bycoagulation assay 39 s 24-35 Comprehensive metabolic panel - 03/19/19 11:00 Serum or plasma sodium measurement (moles/volume) 139 mmol/L 135-145 Serum or plasma potassium measurement (moles/volume) 4.4 mmol/L 3.6-5.0 Serum or plasma chloride measurement (moles/volume) 105 mmol/L 98-107 Carbon dioxide 22 mmol/L 21-32 Serum or plasma anion gap determination (moles/volume) 12 mmol/L 5-14 Serum or plasma urea nitrogen measurement (mass/volume ) 19 mg/dL 7-18 Serum or plasma creatinine measurement (mass/volume) 1.17 mg/dL 0.60-1.30 Serum or plasma urea nitrogen/creatinine mass ratio 16 NRG Serum or plasma creatinine measurement w ith calculation of estimated glomerular filtration rate > NRG Serum or plasma glucose measurement (mass/volume) 91 mg/dL 70-105 Serum or plasma calcium measurement (mass/volume) 9.9 mg/dL 8.5-10.1 Serum or plasma total bilirubin measurement (mass/volu me) 1.5 mg/dL 0.1-1.0 Serum or plasma alkaline phosphatase manuela surement (enzymatic activity/volume) 63 U/L 40-136 Serum or plasma aspartate aminotransfera se measurement (enzymatic activity/volume) 36 U/L 5-34 Serum or plasma alanine aminotransferase measurement (enzymatic activity/volume) 42 U/L 0-55 Serum or plasma protein measurement (mass/volume) 7.1 g/dL 6.4-8.2 Serum or plasma albumin measurement (mass/volume) 4.5 g/dL 3.2-4.5 CALCIUM CORRECTED 9.5 mg/dL 8.5-10.1 Methicillin resistant Staphylococcus aur eus (MRSA) screening culture - 03/19/19 11:00 Methicillin resistant Staphylococcus aureus (MRSA) scr eening culture NEG NRG Automated blood complete blood count (he mogram) panel - 03/20/19 05:01 Blood leukocytes automated count (number/volume) 9.9 10*3/uL 4.3-11.0 Blood erythrocytes automated count (number/volume) 5.20 10*6/uL 4.35-5.85 Venous blood hemoglobin measurement (mass/volume) 16.2 g/dL 13.3-17.7 Blood hematocrit (volume fraction) 44 % 40-54 Automated erythrocyte mean corpuscular volume 85 [ foz_us] 80-99 Automated erythrocyte mean corpuscular h emoglobin (mass per erythrocyte) 31 pg 25-34 Automated erythrocyte mean corpuscular h emoglobin concentration measurement (mass/volume) 37 g/dL 32-36 Automated erythrocyte distribution width ratio 12. 6 % 10.0- 14.5 Automated blood platelet count (count/volume) 247 10*3/uL 130-400 Automated blood platelet mean volume measurement 9.7 [foz_us] 7.4-10.4 Comprehensive metabolic panel - 08/02/19 05:01 Serum or plasma sodium measurement (moles/volume) 137 mmol/L 135-145 Serum or plasma potassium measurement (moles/volume) 4.3 mmol/L 3.6-5.0 Serum or plasma chloride measurement (moles/volume) 105 mmol/L 98-107 Carbon dioxide 24 mmol/L 21-32 Serum or plasma anion gap determination (moles/volume) 8 mmol/L 5-14 Serum or plasma urea nitrogen measurement (mass/volume ) 16 mg/dL 7-18 Serum or plasma creatinine measurement (mass/volume) 1.17 mg/dL 0.60-1.30 Serum or plasma urea nitrogen/creatinine mass ratio 14 NRG Serum or plasma creatinine measurement w ith calculation of estimated glomerular filtration rate > NRG Serum or plasma glucose measurement (mass/volume) 95 mg/dL 70-105 Serum or plasma calcium measurement (mass/volume) 9.2 mg/dL 8.5-10.1 Serum or plasma total bilirubin measurement (mass/volu me) 1.4 mg/dL 0.1-1.0 Serum or plasma alkaline phosphatase manuela surement (enzymatic activity/volume) 64 U/L 40-136 Serum or plasma aspartate aminotransfera se measurement (enzymatic activity/volume) 28 U/L 5-34 Serum or plasma alanine aminotransferase measurement (enzymatic activity/volume) 34 U/L 0-55 Serum or plasma protein measurement (mass/volume) 6.7 g/dL 6.4-8.2 Serum or plasma albumin measurement (mass/volume) 4.1 g/dL 3.2-4.5 CALCIUM CORRECTED 9.1 mg/dL 8.5-10.1 Automated blood complete blood count (he mogram) panel - 06/01/19 07:14 Blood leukocytes automated count (number/volume) 7.8 10*3/uL 4.3-11.0 Blood erythrocytes automated count (number/volume) 5.35 10*6/uL 4.35-5.85 Venous blood hemoglobin measurement (mass/volume) 16.4 g/dL 13.3-17.7 Blood hematocrit (volume fraction) 45 % 40-54 Automated erythrocyte mean corpuscular volume 85 [ foz_us] 80-99 Automated erythrocyte mean corpuscular h emoglobin (mass per erythrocyte) 31 pg 25-34 Automated erythrocyte mean corpuscular h emoglobin concentration measurement (mass/volume) 36 g/dL 32-36 Automated erythrocyte distribution width ratio 12. 9 % 10.0- 14.5 Automated blood platelet count (count/volume) 267 10*3/uL 130-400 Automated blood platelet mean volume measurement 9.3 [foz_us] 7.4-10.4 Comprehensive metabolic panel - 06/01/19 07:14 Serum or plasma sodium measurement (moles/volume) 143 mmol/L 135-145 Serum or plasma potassium measurement (moles/volume) 4.4 mmol/L 3.6-5.0 Serum or plasma chloride measurement (moles/volume) 107 mmol/L 98-107 Carbon dioxide 26 mmol/L 21-32 Serum or plasma anion gap determination (moles/volume) 10 mmol/L 5-14 Serum or plasma urea nitrogen measurement (mass/volume ) 14 mg/dL 7-18 Serum or plasma creatinine measurement (mass/volume) 1.13 mg/dL 0.60-1.30 Serum or plasma urea nitrogen/creatinine mass ratio 12 NRG Serum or plasma creatinine measurement w ith calculation of estimated glomerular filtration rate > NRG Serum or plasma glucose measurement (mass/volume) 110 mg/dL 70-105 Serum or plasma calcium measurement (mass/volume) 9.5 mg/dL 8.5-10.1 Serum or plasma total bilirubin measurement (mass/volu me) 0.8 mg/dL 0.1-1.0 Serum or plasma alkaline phosphatase manuela surement (enzymatic activity/volume) 74 U/L 40-136 Serum or plasma aspartate aminotransfera se measurement (enzymatic activity/volume) 26 U/L 5-34 Serum or plasma alanine aminotransferase measurement (enzymatic activity/volume) 29 U/L 0-55 Serum or plasma protein measurement (mass/volume) 7.4 g/dL 6.4-8.2 Serum or plasma albumin measurement (mass/volume) 4.4 g/dL 3.2-4.5 CALCIUM CORRECTED 9.2 mg/dL 8.5-10.1 PT panel in platelet poor plasma by coag ulation assay - 06/01/19 07:14 Prothrombin time (PT) in platelet poor plasma by coagu lation assay 22.7 s 12.2-14.7 INR in platelet poor plasma or blood by coagulation as say 1.9 0.8-1.4 Activated partial thromboplastin time (a PTT) in platelet poor plasma bycoagulation assay - 06/01/19 07:14 Activated partial thromboplastin time (a PTT) in platelet poor plasma bycoagulation assay 44 s 24-35 Methicillin resistant Staphylococcus aur eus (MRSA) screening culture - 06/01/19 07:14 Methicillin resistant Staphylococcus aureus (MRSA) scr eening culture NEG NRG Automated blood complete blood count (he mogram) panel - 06/02/19 04:10 Blood leukocytes automated count (number/volume) 13.3 10*3/uL 4.3-11.0 Blood erythrocytes automated count (number/volume) 4.55 10*6/uL 4.35-5.85 Venous blood hemoglobin measurement (mass/volume) 14.1 g/dL 13.3-17.7 Blood hematocrit (volume fraction) 39 % 40-54 Automated erythrocyte mean corpuscular volume 86 [ foz_us] 80-99 Automated erythrocyte mean corpuscular h emoglobin (mass per erythrocyte) 31 pg 25-34 Automated erythrocyte mean corpuscular h emoglobin concentration measurement (mass/volume) 36 g/dL 32-36 Automated erythrocyte distribution width ratio 12. 7 % 10.0- 14.5 Automated blood platelet count (count/volume) 197 10*3/uL 130-400 Automated blood platelet mean volume measurement 9.4 [foz_us] 7.4-10.4 Whole blood basic metabolic panel - 05/19 01/04 04:10 Serum or plasma sodium measurement (moles/volume) 139 mmol/L 135-145 Serum or plasma potassium measurement (moles/volume) 3.7 mmol/L 3.6-5.0 Serum or plasma chloride measurement (moles/volume) 109 mmol/L 98-107 Carbon dioxide 20 mmol/L 21-32 Serum or plasma anion gap determination (moles/volume) 10 mmol/L 5-14 Serum or plasma urea nitrogen measurement (mass/volume ) 11 mg/dL 7-18 Serum or plasma creatinine measurement (mass/volume) 0.95 mg/dL 0.60-1.30 Serum or plasma urea nitrogen/creatinine mass ratio 12 NRG Serum or plasma creatinine measurement w ith calculation of estimated glomerular filtration rate > NRG Serum or plasma glucose measurement (mass/volume) 100 mg/dL 70-105 Serum or plasma calcium measurement (mass/volume) 8.2 mg/dL 8.5-10.1 Automated blood complete blood count (he mogram) panel - 07/27/19 07:22 Blood leukocytes automated count (number/volume) 8.0 10*3/uL 4.3-11.0 Blood erythrocytes automated count (number/volume) 5.63 10*6/uL 4.35-5.85 Venous blood hemoglobin measurement (mass/volume) 17.1 g/dL 13.3-17.7 Blood hematocrit (volume fraction) 48 % 40-54 Automated erythrocyte mean corpuscular volume 85 [ foz_us] 80-99 Automated erythrocyte mean corpuscular h emoglobin (mass per erythrocyte) 30 pg 25-34 Automated erythrocyte mean corpuscular h emoglobin concentration measurement (mass/volume) 36 g/dL 32-36 Automated erythrocyte distribution width ratio 13. 0 % 10.0- 14.5 Automated blood platelet count (count/volume) 270 10*3/uL 130-400 Automated blood platelet mean volume measurement 9.4 [foz_us] 7.4-10.4 Comprehensive metabolic panel - 07/27/19 07:22 Serum or plasma sodium measurement (moles/volume) 140 mmol/L 135-145 Serum or plasma potassium measurement (moles/volume) 4.2 mmol/L 3.6-5.0 Serum or plasma chloride measurement (moles/volume) 106 mmol/L 98-107 Carbon dioxide 25 mmol/L 21-32 Serum or plasma anion gap determination (moles/volume) 9 mmol/L 5-14 Serum or plasma urea nitrogen measurement (mass/volume ) 12 mg/dL 7-18 Serum or plasma creatinine measurement (mass/volume) 1.35 mg/dL 0.60-1.30 Serum or plasma urea nitrogen/creatinine mass ratio 9 NRG Serum or plasma creatinine measurement w ith calculation of estimated glomerular filtration rate 53 NRG Serum or plasma glucose measurement (mass/volume) 104 mg/dL 70-105 Serum or plasma calcium measurement (mass/volume) 9.4 mg/dL 8.5-10.1 Serum or plasma total bilirubin measurement (mass/volu me) 1.1 mg/dL 0.1-1.0 Serum or plasma alkaline phosphatase manuela surement (enzymatic activity/volume) 69 U/L 40-136 Serum or plasma aspartate aminotransfera se measurement (enzymatic activity/volume) 33 U/L 5-34 Serum or plasma alanine aminotransferase measurement (enzymatic activity/volume) 37 U/L 0-55 Serum or plasma protein measurement (mass/volume) 7.5 g/dL 6.4-8.2 Serum or plasma albumin measurement (mass/volume) 4.7 g/dL 3.2-4.5 PT panel in platelet poor plasma by coag ulation assay - 07/27/19 07:22 Prothrombin time (PT) in platelet poor plasma by coagu lation assay 23.2 s 12.2-14.7 INR in platelet poor plasma or blood by coagulation as say 2.0 0.8-1.4 Activated partial thromboplastin time (a PTT) in platelet poor plasma bycoagulation assay - 07/27/19 07:22 Activated partial thromboplastin time (a PTT) in platelet poor plasma bycoagulation assay 43 s 24-35 Methicillin resistant Staphylococcus aur eus (MRSA) screening culture - 07/27/19 07:22 Methicillin resistant Staphylococcus aureus (MRSA) scr eening culture NEG NRG Automated blood complete blood count (he mogram) panel - 07/28/19 02:30 Blood leukocytes automated count (number/volume) 11.7 10*3/uL 4.3-11.0 Blood erythrocytes automated count (number/volume) 4.49 10*6/uL 4.35-5.85 Venous blood hemoglobin measurement (mass/volume) 13.7 g/dL 13.3-17.7 Blood hematocrit (volume fraction) 40 % 40-54 Automated erythrocyte mean corpuscular volume 88 [ foz_us] 80-99 Automated erythrocyte mean corpuscular h emoglobin (mass per erythrocyte) 31 pg 25-34 Automated erythrocyte mean corpuscular h emoglobin concentration measurement (mass/volume) 35 g/dL 32-36 Automated erythrocyte distribution width ratio 13. 2 % 10.0- 14.5 Automated blood platelet count (count/volume) 224 10*3/uL 130-400 Automated blood platelet mean volume measurement 9.5 [foz_us] 7.4-10.4 Whole blood basic metabolic panel - 07/19 02:30 Serum or plasma sodium measurement (moles/volume) 140 mmol/L 135-145 Serum or plasma potassium measurement (moles/volume) 4.0 mmol/L 3.6-5.0 Serum or plasma chloride measurement (moles/volume) 108 mmol/L 98-107 Carbon dioxide 22 mmol/L 21-32 Serum or plasma anion gap determination (moles/volume) 10 mmol/L 5-14 Serum or plasma urea nitrogen measurement (mass/volume ) 15 mg/dL 7-18 Serum or plasma creatinine measurement (mass/volume) 1.06 mg/dL 0.60-1.30 Serum or plasma urea nitrogen/creatinine mass ratio 14 NRG Serum or plasma creatinine measurement w ith calculation of estimated glomerular filtration rate > NRG Serum or plasma glucose measurement (mass/volume) 110 mg/dL 70-105 Serum or plasma calcium measurement (mass/volume) 8.4 mg/dL 8.5-10.1 Encounters ACCT No. Visit Date/Time Discharge Status Pt. Type Provider Facility Loc./Unit Complaint [id number] 06/25/2017 14:03:00 06/25/2017 14:03 :00 DIS Outpatient REMINGTON BILLS, [facility] [id number] 07/27/2019 06:58:00 10:55:00 DIS Outpatient Danny GRAVES MD [facility] CATH PERSISTENT ATRIAL FIBRI LLATION [id number] 06/01/2019 06:51:00 10:45:00 DIS Outpatient Danny GRAVES MD [facility] CATH PERSISTENT AFIB,TYPICAL ATRIAL FLUTTER [id number] 05/18/2019 00:11:00 23:59:59 CLS Preadmit Danny GRAVES MD [facility] CARD BRADYCARDIA [id number] 02/16/2019 08:48:00 00:01:00 DIS Outpatient Danny GRAVES MD [facility] CARD BRADYCARDIA [id number] 05/07/2019 07:54:00 23:59:59 CLS Outpatient Danny GRAVES MD [facility] CATH PERSISTENT AFIB [id number] 03/19/2019 09:36:00 10:15:00 DIS Outpatient Danny GRAVES MD [facility] SINUS NODE DYSFUCTION [id number] 02/26/2019 09:00:00 23:59:59 CLS Preadmit Danny GRAVES MD [facility] AFIB [id number] 02/26/2019 07:48:00 10:27:00 DIS Outpatient Danny GRAVES MD [facility] CATH PERSISTEN AF [id number] 02/25/2019 11:00:00 23:59:59 CLS Preadmit LITZY HATFIELD MD [facility] CARD AFIB [id number] 11/26/2018 10:27:00 00:01:00 DIS Outpatient LITZY HATFIELD MD [facility] CARD AFIB [id number] 12/12/2018 06:52:00 23:59:59 CLS Outpatient LITZY HATFIELD MD [facility] AFIB, [facility] [id number] 06/03/2019 21:27:38 9 00:54:00 DIS Emergency Troi Taveras [facility] ED ED VISIT [id number] 01/14/2018 07:37:16 8 10:42:00 DIS LETY MOTA [facility] RAMO PT Vestibular [id number] 08/05/2019 08:56:02 ACT Unknown [id number] 03/30/2019 09:30:33 03/30/2019 23:59: 59 CLS Outpatient Hayder Encinas [id number] 02/04/2019 16:56:27 02/04/2019 23:59: 59 CLS Outpatient Trinidad Goldberg [id number] 11/20/2018 10:14:05 11/20/2018 23:59: 59 CLS Outpatient Hayder Encinas [id number] 04/17/2018 09:03:05 04/17/2018 23:59: 59 CLS Outpatient HetlingerHayder [id number] 11/05/2017 18:57:49 11/05/2017 23:59: 59 CLS Outpatient Shantell Freed [id number] 09/12/2017 10:36:49 09/12/2017 23:59: 59 CLS Outpatient HetlingerHayder [id number] 08/29/2017 10:27:02 08/29/2017 23:59: 59 CLS Outpatient HetlingHayder gunter [id number] 08/15/2017 09:14:58 08/15/2017 23:59: 59 CLS Outpatient HetlingerHayder [id number] 04/16/2017 09:32:29 04/16/2017 23:59: 59 CLS Outpatient HetlingerHayder [id number] 02/13/2017 14:23:33 02/13/2017 23:59: 59 CLS Outpatient Trinidad Goldberg [id number] 04/06/2016 09:19:08 04/06/2016 23:59: 59 CLS Outpatient SherrielingerHayder [id number] 10/21/2015 09:51:05 10/21/2015 23:59: 59 CLS Outpatient Frank Rojas [id number] 09/19/2015 11:49:06 09/19/2015 23:59: 59 CLS Outpatient HetlingHayder gunter [id number] 07/29/2015 09:57:28 07/29/2015 23:59: 59 CLS Outpatient HetlingerHayder [id number] 03/28/2015 22:14:03 03/28/2015 23:59: 59 CLS Outpatient HetlingerHayder [id number] 12/27/2014 14:50:34 12/27/2014 23:59: 59 CLS Outpatient HetlingerHayder [id number] 07/09/2014 09:54:00 07/09/2014 23:59: 59 CLS Outpatient HetlingerHayder [id number] 04/21/2014 12:50:09 04/21/2014 23:59: 59 CLS Outpatient Celso Luke [id number] 04/06/2014 11:46:17 04/06/2014 23:59: 59 CLS Outpatient Celso Luke [id number] 03/30/2014 11:11:01 03/30/2014 23:59: 59 CLS Outpatient Hetlinglyric Hayder [id number] 01/29/2014 10:12:56 01/29/2014 23:59: 59 CLS Outpatient Hayder Encinas [id number] 09/28/2013 15:05:53 09/28/2013 23:59: 59 CLS Outpatient Tessa Solis
--- OUTSIDE RECORDS SUMMARY | 2019-08-21 06:36 | XMS REPORT | Clinical Summary ---
Author Author Admin, Arley Jose [facility] Address Unknown Phone Unavailable Allergies, Adverse Reactions, [...] 40 mg daily for 5 days PREDNISONE 64863155617 No Longer Active Jason Rhodes APRN Active ZITHROMAX Z-LUIS 250 MG ORAL TABLET 2 today, then 1 daily for 4 d ays AZITHROMYCIN 47839965832 No Longer Active Jason Rhodes APRN Active FLUTICASONE PROPIONATE 50 MCG/ACT NASAL SUSPENSION 1 s pray each nostril twice daily for 7 days then daily FLUTICASONE PROPIONATE 000 32062166 Active Jason Rhodes APRN Active MULTIVITAMIN ADULT ORAL TABLET 1 po qd MULTI PLE VITAMINS-MINERALS 60651475627 Active Ray Marx MD Active CITALOPRAM HYDROBROMIDE 20 MG ORAL TABLET 1 po qd CITALOPRAM HYDROBROMIDE 83758933675 Active Ray Marx MD Active PRAMIPEXOLE DIHYDROCHLORIDE 0.25 MG ORAL TABLET 1 po qHS PRN Restless legs PRAMIPEXOLE DIHYDROCHLORIDE 21582658847 Active Ray Marx MD Active XARELTO 20 MG ORAL TABLET 1 po qHS RIVAROXABAN 452715 26574 Active Ray Marx MD Active MULTAQ 400 MG ORAL TABLET 1 po BID DRONEDARONE H CL 97948993007 Active Ray Marx MD Active LISINOPRIL 10 MG ORAL TABLET 2 po qd LISINOPRIL 27189 565287 Active Ray Marx MD Active DOXYCYCLINE HYCLATE 100 MG ORAL CAPSULE 1 cap by mouth twice daily for 10 days DOXYCYCLINE HYCLATE 35214032883 No Longer Active Ray Marx MD Active FUROSEMIDE 20 MG ORAL TABLET 1 tablet by mouth daily for 3 days FUROSEMIDE 58255126978 No Longer Active Ray Marx MD Activ e LATANOPROST SOLUTION 1 drop in left eye at bedtime LATANOPROST SOLN 70427714463 Active Daisy Villarreal MA Active MULTIVITAMINS ORAL CAPSULE 1 po daily MULTIPLE VIT MENCHACA 77874586213 No Longer Active Daisy Villarreal MA Active [facility] MELATONIN 3 MG ORAL TABLET 1 po at bedtime MELATONIN 79803570946 Active Daisy Villarreal MA Active FUROSEMIDE 20 MG ORAL TABLET 1 tablet by mouth daily for 3 days FUROSEMIDE 20 MG ORAL TABLET 692385 FUROSEMIDE Inactive DOXYCYCLINE HYCLATE 100 MG ORAL CAPSULE 1 cap by mouth twice daily for 10 days DOXYCYCLINE HYCLATE 100 MG ORAL CAPSULE 0562476 D OXYCYCLINE HYCLATE Inactive ZITHROMAX Z-LUIS 250 MG ORAL TABLET 2 today, then 1 daily for 4 d ays ZITHROMAX Z-LUIS 250 MG ORAL TABLET 581194 AZITHROMYCIN Inactive PREDNISONE 20 MG ORAL TABLET take 40 mg daily for 5 days PREDNISONE 20 MG ORAL TABLET 248833 PREDNISONE Inactive Vital Signs Date Name Value [...] Office Visit: Follow up from ER at [facility] 06/03/2019 304 - Chemistry HDL cholesterol, serum, target level 40 mg/dL cholesterol, target level 200 mg/dL triglyceride, target level 150 mg/dL Encounters Code Encounter Date Provider Facility CPT-63722 Level 3 Est. Patient 09:31:41 SENIOR INFORMATION SECURITY ARCHITECT [facility] CPT-[facility]60 Level 4 Est. Patient 13:46:40 CDT Ray Marx MD [facility] CPT-36600 Level 4 Est. Patient 09:38:38 CDT Ray Marx MD [facility] Procedures Code Procedure Name Date Entry Date Standard Desc ription [id number] (4274F 2P) Patient Reason Influenza immu nization not administered 09:15:44 SENIOR INFORMATION SECURITY ARCHITECT CPT-22518 Chest, 2 views 13:50:02 CDT
--- OUTSIDE RECORDS SUMMARY | 2019-08-21 06:36 | XMS REPORT | Clinical Summary ---
Author Author Admin, Arley Jose [facility] Address Unknown Phone Unavailable Allergies, Adverse [...] Obesity Class I (BMI 30-34.9) Active 8 aDisy Villarreal MA Obesity, unspecified Atrial fibrillation 427.31 Active Ray sage MD Atrial fibrillation Pleural effusion 511.9 Active Ray Sen Unspecified pleural effusion Restless leg syndrome 333.94 Active Ray wakefield MD Restless legs syndrome (RLS) Hypertension, benign essential, controlled 401.1 Acti ve aRy Marx MD Benign essential hypertension Major depressive disorder, single episode, moderate 311 20 06/06/28 Active Ray Marx MD Depressive disorder, not else where classified Health screening V70.0 Active Ray Sen Routine general medical examination at a health care facility Dizziness ICD-780.4 Inactive Ray Marx MD Medication List Medication Instructions Start Date Stop Date Generic Name NDC Status Provider Patient Instruction MULTIVITAMIN ADULT ORAL TABLET 1 po qd MULTI PLE VITAMINS-MINERALS 80687687380 Active Ray Marx MD Active CITALOPRAM HYDROBROMIDE 20 MG ORAL TABLET 1 po qd CITALOPRAM HYDROBROMIDE 00807853910 Active Ray Marx MD Active PRAMIPEXOLE DIHYDROCHLORIDE 0.25 MG ORAL TABLET 1 po qHS PRN Restless legs PRAMIPEXOLE DIHYDROCHLORIDE 01879711613 Active Ray Marx MD Active XARELTO 20 MG ORAL TABLET 1 po qHS RIVAROXABAN 310438 93530 Active Ray Marx MD Active MULTAQ 400 MG ORAL TABLET 1 po BID DRONEDARONE H CL 66548166337 Active Ray Marx MD Active LISINOPRIL 10 MG ORAL TABLET 2 po qd LISINOPRIL 48996 745165 Active Ray Marx MD Active DOXYCYCLINE HYCLATE 100 MG ORAL CAPSULE 1 cap by mouth twice daily for 10 days DOXYCYCLINE HYCLATE 26032237330 No Longer Active Ray Marx MD Active FUROSEMIDE 20 MG ORAL TABLET 1 tablet by mouth daily for 3 days FUROSEMIDE 96099100682 No Longer Active Ray Marx MD Activ e LATANOPROST SOLUTION 1 drop in left eye at bedtime LATANOPROST SOLN 96080106593 Active Daisy Villarreal MA Active MULTIVITAMINS ORAL CAPSULE 1 po daily MULTIPLE VIT MENCHACA 56265613753 No Longer Active Daisy Villarreal MA Active [facility] MELATONIN 3 MG ORAL TABLET 1 po at bedtime MELATONIN 95411821299 Active Daisy Villarreal MA Active FUROSEMIDE 20 MG ORAL TABLET 1 tablet by mouth daily for 3 days FUROSEMIDE 20 MG ORAL TABLET 553014 FUROSEMIDE Inactive DOXYCYCLINE HYCLATE 100 MG ORAL CAPSULE 1 cap by mouth twice daily for 10 days DOXYCYCLINE HYCLATE 100 MG ORAL CAPSULE 8297040 D OXYCYCLINE HYCLATE Inactive Vital Signs Date Name Value Unit Range Description blood pressure, diastolic, repeated by physician 84 [...] Office Visit: Follow up from ER at [facility] 06/03/2019 304 - Chemistry HDL cholesterol, serum, target level 40 mg/dL cholesterol, target level 200 mg/dL triglyceride, target level 150 mg/dL Encounters Code Encounter Date Provider Facility CPT-63108 Level 4 Est. Patient 13:46:40 CDT Ray Marx MD [facility] CPT-19374 Level 4 Est. Patient 09:38:38 CDT Ray Marx MD [facility] Procedures Code Procedure Name Date Entry Date Standard Desc ription CPT-30911 Chest, 2 views 13:50:02 CDT
--- OUTSIDE RECORDS SUMMARY | 2019-08-21 06:36 | XMS REPORT | Clinical Summary ---
Author Author Admin, Arley Jose [facility] Address Unknown Phone Unavailable Allergies, Adverse Reactions, [...] 40 mg daily for 5 days PREDNISONE 20194677258 No Longer Active Jason Rhodes APRN Active ZITHROMAX Z-LUIS 250 MG ORAL TABLET 2 today, then 1 daily for 4 d ays AZITHROMYCIN 73529027612 No Longer Active Jason Rhodes APRN Active FLUTICASONE PROPIONATE 50 MCG/ACT NASAL SUSPENSION 1 s pray each nostril twice daily for 7 days then daily FLUTICASONE PROPIONATE 000 25637606 Active Jason Rhodes APRN Active MULTIVITAMIN ADULT ORAL TABLET 1 po qd MULTI PLE VITAMINS-MINERALS 63405849590 Active Ray Marx MD Active CITALOPRAM HYDROBROMIDE 20 MG ORAL TABLET 1 po qd CITALOPRAM HYDROBROMIDE 37666285605 Active Ray Marx MD Active PRAMIPEXOLE DIHYDROCHLORIDE 0.25 MG ORAL TABLET 1 po qHS PRN Restless legs PRAMIPEXOLE DIHYDROCHLORIDE 79412215918 Active Ray Marx MD Active XARELTO 20 MG ORAL TABLET 1 po qHS RIVAROXABAN 054546 79432 Active Ray Marx MD Active MULTAQ 400 MG ORAL TABLET 1 po BID DRONEDARONE H CL 00073539344 Active Ray Marx MD Active LISINOPRIL 10 MG ORAL TABLET 2 po qd LISINOPRIL 64900 519703 Active Ray Marx MD Active DOXYCYCLINE HYCLATE 100 MG ORAL CAPSULE 1 cap by mouth twice daily for 10 days DOXYCYCLINE HYCLATE 98966260033 No Longer Active Ray Marx MD Active FUROSEMIDE 20 MG ORAL TABLET 1 tablet by mouth daily for 3 days FUROSEMIDE 50845940122 No Longer Active Ray Marx MD Activ e LATANOPROST SOLUTION 1 drop in left eye at bedtime LATANOPROST SOLN 86661903867 Active Daisy Villarreal MA Active MULTIVITAMINS ORAL CAPSULE 1 po daily MULTIPLE VIT MENCHACA 05872068048 No Longer Active Daisy Villarreal MA Active [facility] MELATONIN 3 MG ORAL TABLET 1 po at bedtime MELATONIN 07934698833 Active Daisy Villarreal MA Active FUROSEMIDE 20 MG ORAL TABLET 1 tablet by mouth daily for 3 days FUROSEMIDE 20 MG ORAL TABLET 509045 FUROSEMIDE Inactive DOXYCYCLINE HYCLATE 100 MG ORAL CAPSULE 1 cap by mouth twice daily for 10 days DOXYCYCLINE HYCLATE 100 MG ORAL CAPSULE 6333304 D OXYCYCLINE HYCLATE Inactive ZITHROMAX Z-LUIS 250 MG ORAL TABLET 2 today, then 1 daily for 4 d ays ZITHROMAX Z-LUIS 250 MG ORAL TABLET 164687 AZITHROMYCIN Inactive PREDNISONE 20 MG ORAL TABLET take 40 mg daily for 5 days PREDNISONE 20 MG ORAL TABLET 022888 PREDNISONE Inactive Vital Signs Date Name Value [...] Office Visit: Follow up from ER at [facility] 06/03/2019 304 - Chemistry HDL cholesterol, serum, target level 40 mg/dL cholesterol, target level 200 mg/dL triglyceride, target level 150 mg/dL Encounters Code Encounter Date Provider Facility CPT-82095 Level 3 Est. 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 Patient 13:46:40 CDT Ray Marx MD [facility] CPT-41817 Level 4 Est. Patient 09:38:38 CDT Ray Marx MD [facility] Procedures Code Procedure Name Date Entry Date Standard Desc ription [id number] (4274F 2P) Patient Reason Influenza immu nization not administered 09:15:44 DURABILITY TECHNICIAN CPT-30512 Chest, 2 views 13:50:02 CDT
== END 2019-07-28 10:55 | disposition home or self-care (01) ==
LOC: CATH 06:58 → ICU 14:06 → CATH 07-28 10:55
PROVIDERS: ATTEND Internal Medicine Interventional Cardiology
DX: I48.19 Other persistent atrial fibrillation (principal); Z88.0 Allergy status to penicillin; Z79.899 Other long term (current) drug therapy
CPT/HCPCS: 36415; 80048; 80053; 85027; 85610; 85730; 87081; 93005; 93613; 93622; 93656; 93657; 93662

== ENCOUNTER → 2019-10-19 | Outpatient (CLI) | payer BC | LOC: CARD 10:27 | PROVIDERS: ATTEND Internal Medicine Interventional Cardiology | DX: I48.19 Other persistent atrial fibrillation (principal); I45.89 Other specified conduction disorders; I48.3 Typical atrial flutter; I10 Essential (primary) hypertension; Z95.0 Presence of cardiac pacemaker; I34.0 Nonrheumatic mitral (valve) insufficiency | CPT/HCPCS: 93306 ==

== ENCOUNTER → 2020-10-12 | Outpatient (CLI) | payer BC ==
[~2020-10-12] MED LIST changes: -AMIO200T4 PO; +AMIO200T6 PO; -CLIN300C11 PO; +CLIN300C12 PO; -LISI-552 PO; -LISI10TA2 PO; +LISI10TA25 PO; +LISI20TA26 PO
[2020-10-12 12:10] LABS: HEMOGLOBIN 15.8 g/dL (13.3-17.7); MEAN PLATELET VOLUME 9.2 fL (9.0-12.2); WHITE BLOOD COUNT 7.5 10^3/uL (4.3-11.0)
[2020-10-12 12:31] LABS: BUN/CREATININE RATIO 17; CALCIUM 9.3 MG/DL (8.5-10.1); CARBON DIOXIDE 26 MMOL/L (21-32); CHLORIDE 105 MMOL/L (98-107); CREATININE SERUM 1.05 MG/DL (0.60-1.30); GFR ESTIMATED > 60; GLUCOSE 101 MG/DL (70-105); MAGNESIUM 2.1 MG/DL (1.6-2.4); SODIUM 139 MMOL/L (135-145)
== END ==
LOC: LAB 11:31
PROVIDERS: ATTEND Nurse Practitioner Family
DX: R06.02 Shortness of breath (principal)
CPT/HCPCS: 36415; 80048; 83735; 84443; 85027

== ENCOUNTER → 2020-10-21 | Outpatient (CLI) | payer BC, MEDICARE ==
[~2020-10-21] VITALS: Ht 177 cm; Wt 97.0 kg
[~2020-10-21] MED LIST changes: +REGADENOSON 0.4 MG/5 ML SYR (LEXISCAN) IV ONE
[2020-10-21] MEDS: CATHETER FLUSH 10 ML SYR IV PRN ×2 (07:32→08:49)
[2020-10-21 08:36] VITALS: BP 152/88
--- NOTE | 2020-10-26 23:02 | STRESS TEST ---
DATE OF SERVICE: 10/21/2020 RESTING AND POST REGADENOSON TECHNETIUM-99M TETROFOSMIN SPECT CT IMAGING ORDERING PHYSICIAN: Dr. Franco. PRIMARY PHYSICIAN: Dr. Marx. CLINICAL DIAGNOSIS: Chest discomfort. Baseline images were carried out after injection of 10.96 mCi of technetium-99m Tetrofosmin. This was followed by 0.4 mg regadenoson and 31.4 mCi of technetium-99m Tetrofosmin for stress imaging. The electrocardiogram showed sinus rhythm with an early repolarization pattern. This did not change significantly with regadenoson infusion. Review of images at rest and following stress does not indicate any significant perfusion defects consistent with myocardial ischemia or infarction. Gated images show normal global left ventricular systolic function with normal regional wall motion. Left ventricular ejection fraction is calculated to be 73%. Left ventricular end diastolic volume is 58 mL. CONCLUSIONS: 1. No evidence of any significant myocardial ischemia or infarction on this study. 2. Normal regional wall motion. 3. Normal global left ventricular systolic function with a calculated ejection fraction of 73%. Job ID: [id number] DocumentID: [id number] Dictated Date: 10/26/2020 20:28:15 Science Interpreter Date: 10/26/2020 23:01:30 Dictated By: TA FRANCO MD, MA, FACP, FACC,
== END ==
LOC: CARD 08:15
PROVIDERS: ATTEND Internal Medicine Cardiovascular Disease
DX: R07.89 Other chest pain (principal)
CPT/HCPCS: 78452; 93017; A9502

== ENCOUNTER 2021-06-27 11:00 | Day surgery (SDC) | payer MEDICARE ==
[~2021-06-27] VITALS: Ht 177 cm; Wt 100.0 kg
--- OUTSIDE RECORDS SUMMARY | 2021-06-27 09:04 | XMS REPORT ---
Author Author Arley Gurrola [facility] Address [address] [place], [place] [id number] Care Team Providers Care Transcription Typist Name Role Phone Castillo Gurrola PCP Unavailable Hayder Encinas PreferredProvider Allergies and Adverse Reactions Name Reaction Notes PENICILLINS Plan of Treatment Planned Activity Comments Planned Date Planned Time Plan/Goal EKG. 11/20/2018 12:00 AM Pfizer-Thread[place]ishery Covid-19 Vaccine 05/01/2021 12:00 AM Medications Active Name Start Date Estimated Completion Date SIG Co mments Sildenafil 20 mg 06/20/2018 take 1 tablet daily and prn timolol maleate 0.25 % ophthalmic (eye) drops 11/19/2018 Xarelto 20 mg oral tablet take 1 tablet (20 mg) by oral route once daily with the evening meal pramipexole 0.25 mg oral tablet 07/06/2019 TAKE 1 TABLET 2 TO 3 HOURS BEFORE BEDTIME citalopram 20 mg oral tablet 09/17/2019 TAKE 1 TABLE T DAILY Name Start Date Expiration Date SIG [...] (Esvin) 4 mg oral tablets,dose pack 12/27/2014 01/09/20 take as directed for 6 days promethazine-codeine 6.25-10 mg/5 mL oral syrup 12/27/2014 take 5 milliliters by oral route every 6 hours as needed, not to exceed 30 mL in 24 hours Levaquin 500 mg oral tablet 09/19/2015 09/26/2015 take 1 tablet (500 mg) by oral route once daily for 7 days Cialis 5 mg oral tablet 09/19/2015 10/19/2015 take 1 t ablet (5 mg) by oral route once daily for 30 days Levaquin 500 mg oral tablet 09/19/2017 10/03/2017 take 1 tablet (500 mg) by oral route once daily for 14 days lisinopril 5 mg oral tablet 07/22/2018 07/17/2019 take 1 tablet (5 mg) by oral route once daily for 90 days Discontinued Name Start Date Discontinued Date SIG Comments Lexapro 10 mg oral tablet 12/05/2012 take 1 tablet (10 mg) by oral route once daily Mirapex 0.125 mg oral tablet 08/28/2011 12/05/2012 ugo e 1 tablet (0.125 mg) by oral route 2-3 hours before bedtime Alysa-D 12 Hour 60-120 mg oral tablet extended release 12 hr 12/05/2012 09/28/2013 take 1 tablet by oral route 2 times a day as needed Medrol (Esvin) 4 mg oral tablets,dose pack 12/05/2012 09/28/2013 take as directed Axiron 30 mg/actuation (1.5 mL) transdermal solution i n metered pump w/susan 07/08/2013 04/06/2014 apply 1 pump (30 mg) by topi mendoza route once daily in the morning to [...] amoxicillin 875 mg oral tablet 07/25/2015 07/29/2015 t chetna 1 tablet (875 mg) by oral route [...] HC BMI BSA BMI Percentile O2 Sat(%) 03/30/2019 8:36:00 AM 120 mm[Hg] 70 mm[Hg] 71 {beats}/min 18 rpm 97.5 F 211.125 lbs 70 in 30.293 kg/m2 2.1748 m2 97 % 11/20/2018 9:30:00 AM 118 mm[Hg] 60 mm[Hg] 41 {beats}/min 18 rpm 97.9 F 212.5 lbs 70 in 30.49 kg/m2 2.18 m2 99 % 04/17/2018 8:31:00 AM 134 mm[Hg] 88 mm[Hg] 56 {beats}/min 18 rpm 98.1 F 208.375 lbs 70 in 29.8984 kg/m2 2.1606 m2 98 % 11/05/2017 6:12:00 PM 142 mm[Hg] 86 mm[Hg] 60 {beats}/min 16 rpm 97.6 F 211 lbs 70 in 30.28 kg/m2 2.17 m2 97 % 09/12/2017 9:47:00 AM 158 mm[Hg] 94 mm[Hg] 79 {beats}/min 16 rpm 97.8 F 209.375 lbs 70 in 30.0419 kg/m2 2.1658 m2 99 % 08/29/2017 10:11:00 AM 130 mm[Hg] 88 mm[Hg] 75 {beats}/min 20 rpm 97.1 F 210.125 lbs 70 in 30.15 kg/m2 2.17 m2 97 % 08/15/2017 8:24:00 AM 172 mm[Hg] 94 mm[Hg] 60 {beats}/min 20 rpm 97 F 211.25 lbs 70 in 30.3109 kg/m2 2.1754 m2 98 % 04/16/2017 8:45:00 AM 134 mm[Hg] 86 mm[Hg] 59 {beats}/min 14 rpm 96.1 F 207.5 lbs 70 in 29.77 kg/m2 2.16 m2 97 % 04/06/2016 8:31:00 AM 126 mm[Hg] 68 mm[Hg] 60 {beats}/min 19 rpm 97.7 F 233.8 lbs 70 in 33.5465 kg/m2 2.2886 m2 99 % 10/21/2015 9:01:00 AM 110 mm[Hg] 70 mm[Hg] 77 {beats}/min 20 rpm 98.9 F 200 lbs 70 in 28.70 kg/m2 2.12 m2 99 % 09/19/2015 11:02:00 AM 124 mm[Hg] 72 mm[Hg] 85 {beats}/min 18 rpm 98.4 F 201 lbs 70 in 28.8402 kg/m2 2.122 m2 96 % 07/29/2015 9:15:00 AM 138 mm[Hg] 82 mm[Hg] 74 {beats}/min 18 rpm 97.6 F 207 lbs 70 in 29.70 kg/m2 2.15 m2 95 % 02/28/2015 10:20:00 AM 128 mm[Hg] 82 mm[Hg] 83 {beats}/min 20 rpm 98 F 205.125 lbs 70 in 29.4321 kg/m2 2.1437 m2 94 % 12/27/2014 1:58:00 PM 13 mm[Hg] 86 mm[Hg] 72 {beats}/min 18 rpm 98 F 207 lbs 70 in 29.70 kg/m2 2.15 m2 10/18/2014 9:04:00 AM 134 mm[Hg] 82 mm[Hg] 60 {beats}/min 18 rpm 97.7 F 204 lbs 70 in 29.2707 kg/m2 2.1378 m2 07/09/2014 9:16:00 AM 134 mm[Hg] 82 mm[Hg] 80 {beats}/min 18 rpm 98 F 206 lbs 70 in 29.56 kg/m2 2.15 m2 04/06/2014 11:16:00 AM 132 mm[Hg] 76 mm[Hg] 59 {beats}/min 16 rpm 97.4 F 192 lbs 70 in 27.5488 kg/m2 2.074 m2 97 % 03/30/2014 10:56:00 AM 120 mm[Hg] 82 mm[Hg] 60 {beats}/min 18 rpm 97.4 F 196 lbs 70 in 28.12 kg/m2 2.10 m2 02/11/2014 9:25:00 AM 118 mm[Hg] 72 mm[Hg] 72 {beats}/min 18 rpm 98 F 201 lbs 70 in 28.8402 kg/m2 2.122 m2 01/29/2014 9:40:00 AM 120 mm[Hg] 82 mm[Hg] 64 {beats}/min 18 rpm 98 F 201 lbs 70 in 28.84 kg/m2 2.12 m2 09/28/2013 2:10:00 PM 132 mm[Hg] 64 mm[Hg] 77 {beats}/min 18 rpm 97.6 F 208.125 lbs 70 in 29.8625 kg/m2 2.1593 m2 98 % 07/08/2013 8:18:00 AM 130 mm[Hg] 82 mm[Hg] 78 {beats}/min 18 rpm 97.6 F 205 lbs 70 in 29.4141 kg/m2 2.14 m2 12/05/2012 8:11:00 AM 130 mm[Hg] 78 mm[Hg] 64 {beats}/min 18 rpm 87.5 F 201.4 lbs 70 in 28.90 kg/m2 2.1241 m2 99 % 04/24/2012 10:46:00 AM 124 mm[Hg] 72 mm[Hg] 72 {beats}/min 18 rpm 97.8 F 200 lbs 70 in 28.6967 kg/m2 2.12 m2 10/02/2011 9:44:00 AM 132 mm[Hg] 80 mm[Hg] 64 {beats}/min 20 rpm 97.4 F 196 lbs 70 in 28.12 kg/m2 2.0954 m2 09/19/2011 10:44:00 AM 128 mm[Hg] 72 mm[Hg] 80 {beats}/min 20 rpm 98.9 F 198 lbs 70 in 28.4098 kg/m2 2.11 m2 09/07/2011 10:59:00 AM 134 mm[Hg] 82 mm[Hg] 72 {beats}/min 18 rpm 97.8 F 198 lbs 70 in 28.41 kg/m2 2.1061 m2 08/23/2011 1:55:00 PM 142 mm[Hg] 74 mm[Hg] 64 {beats}/min 18 rpm 97.8 F 198 lbs 70 in 28.4098 kg/m2 2.11 m2 05/29/2011 11:20:00 AM 122 mm[Hg] 62 mm[Hg] 66 {beats}/min 18 rpm 98.3 F 195.375 lbs 70 in 28.03 kg/m2 2.0921 m2 11/17/2010 10:41:00 AM 130 mm[Hg] 82 mm[Hg] 78 {beats}/min 20 rpm 98.3 F 203 lbs 07/03/2010 9:46:00 AM 118 mm[Hg] 74 mm[Hg] 80 {beats}/min 20 rpm 96.9 F 201 lbs 09/07/2009 8:47:00 AM 130 mm[Hg] 72 mm[Hg] 68 {beats}/min 18 rpm 97 F 203 lbs 70 in 29.1272 kg/m2 2.1325 m2 Social History Name Description Comments denies alcohol use Lives with spouse Tobacco Never smoker History of Procedures Date Ordered Description Order Status 07/29/2015 12:00 AM COMPLETE CBC W/AUTO DIFF WBC Reviewed 07/29/2015 12:00 AM COMPREHEN METABOLIC PANEL Reviewed 07/29/2015 12:00 AM GLYCOSYLATED HEMOGLOBIN TEST Reviewed 07/29/2015 12:00 AM CHEST X-RAY 2VW FRONTAL&LATL Reviewed 09/19/2015 12:00 AM Decadron, Per 1 Mg ND# [id number] Re viewed 09/19/2015 12:00 AM Depo-Medrol, Per 80 Mg ND#[address]-59 Reviewed 10/21/2015 12:[address] MAXILLOFACIAL W/O [...] 12:00 AM Cbc With Auto Differential % Revi ewed 12/05/2012 12:00 AM COMPREHEN METABOLIC PANEL Reviewed [...] AM COMPLETE CBC W/AUTO DIFF WBC Returned 11/20/2018 12:00 AM COMPLETE CBC W/AUTO DIFF WBC Returned 11/20/2018 12:00 AM COMPREHEN METABOLIC PANEL Returned 11/20/2018 12:00 AM LIPID PANEL Returned 11/20/2018 12:00 AM GLYCOSYLATED HEMOGLOBIN TEST Returned 11/20/2018 12:00 AM ASSAY THYROID STIM HORMONE Returned 11/20/2018 12:00 AM VITAMIN B-12 Returned 11/20/2018 12:00 AM ASSAY OF TROPONIN QUANT Returned 11/20/2018 12:00 AM URINALYSIS AUTO W/O SCOPE Returned 06/25/2013 12:00 AM ROUTINE VENIPUNCTURE Reviewed 06/25/2013 12:00 AM ASSAY OF TOTAL TESTOSTERONE Reviewed 09/28/2013 12:00 AM THER/PROPH/DIAG INJ SC/IM Reviewed 09/28/2013 12:00 AM Decadron, Per 1 Mg [facility]# [address]-56 Re viewed 09/28/2013 12:00 AM Depo-Medrol, Per 80 Mg [facility]#1374-9676-11 Reviewed 01/29/2014 12:00 AM COMPLETE CBC W/AUTO [...] 11/17/2010 12:00 AM Depo-Medrol 80 Mg [facility] [id number] irma Reviewed 11/17/2010 12:00 AM Decadron Inj. per 1mg-[facility] [id number] tlinger Reviewed 10/18/2014 12:00 AM COMPLETE CBC W/AUTO DIFF WBC Reviewed 10/18/2014 12:00 AM COMPREHEN METABOLIC PANEL Reviewed 10/18/2014 12:00 AM LIPID PANEL Reviewed 10/18/2014 12:00 AM GLYCOSYLATED HEMOGLOBIN TEST Reviewed 10/18/2014 12:00 AM ASSAY THYROID STIM HORMONE Reviewed 10/18/2014 12:00 AM VITAMIN B-12 Reviewed 10/18/2014 12:00 AM ASSAY OF TOTAL TESTOSTERONE Reviewed 12/27/2014 12:00 AM Rocephin 1 gram [facility]#0828-9579-64 Reviewe d 02/28/2015 12:00 AM Decadron, Per 1 Mg [facility]# [address]-55 Re viewed 02/28/2015 12:00 AM Depo-Medrol 40mg Reviewed Results Summary Date and Description Results 11/17/2010 11:55 AM PSA TOTAL 1.530 ng/mLTSH 1.7 70 uIU/mLGLUCOSE 97.0 mg/dLSODIUM 138.0 mmol/LPOTASSIUM 4.60 mmol/LCHLORIDE 101.0 mmol/LCO2 25.0 mmol/LBUN 11.0 mg/dLCREATININE 0.90 mg/dLSGOT/AST 44.0 IU/LSGPT/ALT 54.0 IU/LALK PHOS 86.0 IU/LTOTAL PROTEIN 8.0 g/dLALBUMIN 4.70 g/dLTOTAL BILI 0.70 mg/dLCALCIUM 9.70 mg/dLAGE 55 GFR NonAA 87 GFR AA 105 eGFR >60 mL/min/1.73 m2eGFR AA* >60 WBC 5.9 RBC 5.29 HGB 16.50 g/dLHCT 45.30 %MCV 86.0 fLMCH 31.20 pgMCHC 36.40 g/dLRDW SD 39 RDW CV 12.30 %MPV 9.90 fLPLT 230 NRBC# 0.00 NRBC% 0.0 %NEUT 57.40 %%LYMP 24.80 %%MONO 13.20 %%EOS 3.90 %%BASO 0.70 %#NEUT 3.38 #LYMP 1.46 #MONO 0.78 #EOS 0.23 #BASO 0.04 MANUAL DIFF [...] g/dLALBUMIN 4.40 g/dLTOTAL BILI 0.80 mg/dLCALCIUM 9.70 mg/dLAGE 55 GFR NonAA 77 GFR AA 93 eGFR >60 mL/min/1.73 m2eGFR AA* >60 06/12/2012 9:00 AM WBC 10.3 RBC 5.54 HGB 17.20 g/dLHCT 47.30 %MCV 85.0 fLMCH 31.0 pgMCHC 36.40 g/dLRDW SD 38 RDW CV 12.30 %MPV 9.60 fLPLT 282 NRBC# 0.00 NRBC% 0.0 %NEUT 55.70 %%LYMP 30.90 %%MONO 8.70 %%EOS 4.10 %%BASO 0.60 %#NEUT 5.74 #LYMP 3.18 #MONO 0.90 #EOS 0.42 #BASO 0.06 MANUAL DIFF NOT IND GLUCOSE 96.0 mg/dLSODIUM 139.0 mmol/LPOTASSIUM 4.30 mmol/LCHLORIDE 105.0 mmol/LCO2 27.0 mmol/LBUN 20.0 mg/dLCREATININE 1.0 mg/dLSGOT/AST 34.0 IU/LSGPT/ALT 40.0 IU/LALK PHOS 75.0 IU/LTOTAL PROTEIN 7.80 g/dLALBUMIN 4.60 g/dLTOTAL BILI 1.10 mg/dLCALCIUM 10.10 mg/dLAGE 56 GFR NonAA 77 GFR AA 93 eGFR 60 eGFR AA* 60 TRIGLYCERIDES 109.0 mg/dLCHOLESTEROL 176.0 mg/dLHDL 46.0 mg/dLTOT CHOL/HDL 3.8 LDL (CALC) 108.0 mg/dL 12/05/2012 9:10 AM WBC 7.7 RBC 5.37 HGB 16.80 g /dLHCT 45.60 %MCV 85.0 fLMCH 31.30 pgMCHC 36.80 [...] g/dLALBUMIN 4.50 g/dLTOTAL BILI 0.90 mg/dLCALCIUM 10.10 mg/dLAGE 57 GFR NonAA 77 GFR AA 93 eGFR 60 eGFR AA* 60 TRIGLYCERIDES 96.0 mg/dLCHOLESTEROL 157.0 mg/dLHDL 48.0 mg/dLTOT CHOL/HDL 3.3 LDL (CALC) 90.0 mg/dLTSH 1.670 uIU/mLVITAMIN B12 452.0 pg/mL 06/30/2013 8:10 AM TESTOSTERONE 386.0 ng/dL 01/29/2014 11:07 AM WBC 7.3 RBC 5.31 HGB 16.60 g /dLHCT 45.10 %MCV 85.0 fLMCH 31.30 pgMCHC 36.80 g/dLRDW SD 40 RDW CV 12.90 %MPV 10.10 fLPLT 277 NRBC# 0.00 NRBC% 0.0 %NEUT 54.90 %%LYMP 31.90 %%MONO 7.90 %%EOS 4.80 %%BASO 0.50 %#NEUT 4.03 #LYMP 2.34 #MONO 0.58 #EOS 0.35 #BASO 0.04 MANUAL DIFF NOT IND PSA TOTAL 1.970 ng/mL 10/18/2014 9:45 AM TESTOSTERONE 393.0 ng/dLVITA MIN B12 445.0 pg/mLTSH 1.420 uIU/mLGLUCOSE 92.0 mg/dLSODIUM 141.0 mmol/LPOTASSIUM 4.40 mmol/LCHLORIDE 105.0 mmol/LCO2 25.0 mmol/LBUN 12.0 mg/dLCREATININE 0.90 mg/dLSGOT/AST 32.0 [...] 0.05 MANUAL DIFF NOT IND TRIGLYCERIDES 70.0 mg/dLCHOLESTEROL 150.0 mg/dLHDL 52.0 mg/dLTOT CHOL/HDL 2.9 LDL (CALC) 84.0 mg/dLHGB A1C 7.10 %Est Avg Glucose 157.1 mg/dL 07/29/2015 10:06 AM WBC 6.6 RBC 5.07 HGB 15.60 g /dLHCT 43.70 %MCV 86.0 fLMCH 30.80 pgMCHC 35.70 g/dLRDW SD 39 RDW CV 12.50 %MPV 9.70 fLPLT 256 NRBC# 0.00 NRBC% 0.0 %NEUT 56.10 %%LYMP 21.30 %%MONO 14.90 %%EOS 7.40 %%BASO 0.30 %#NEUT 3.69 #LYMP 1.40 #MONO 0.98 #EOS 0.49 #BASO 0.02 MANUAL DIFF PENDING GLUCOSE 98.0 mg/dLSODIUM 137.0 mmol/LPOTASSIUM 4.60 mmol/LCHLORIDE 106.0 mmol/LCO2 23.0 mmol/LBUN 16.0 mg/dLCREATININE 1.10 mg/dLSGOT/AST 34.0 IU/LSGPT/ALT 37.0 IU/LALK PHOS 85.0 IU/LTOTAL PROTEIN 6.70 g/dLALBUMIN 4.40 g/dLTOTAL BILI 0.80 mg/dLCALCIUM 9.20 mg/dLAGE 59 GFR NonAA 68 GFR AA 82 eGFR >60 mL/min/1.73 m2eGFR AA* >60 Hemoglobin A1c 5.70 %Estim. Avg Glu (eAG) 117 04/06/2016 9:22 AM WBC 8.2 RBC 5.37 HGB 15.90 g /dLHCT 45.60 %MCV 85.0 fLMCH 29.60 pgMCHC 34.90 [...] Other specified disorders of male genital organs; gaby tospermia Jan 29 2014 9:46AM Testosterone deficiency Jan 29 2014 9:46AM Osteoarthritis, [...] to treatment or procedure Sep 12 2017 2:5 5PM Double vision Sep 12 2017 2:55PM Unsteady [...] 2018 9:35AM Fatigue Nov 20 2018 9:35AM Annual physical exam Mar 30 2019 8:35AM Encounter for administration of COVID-19 vaccine May 01 2021 3:14PM Payers Insurance Name Company Name Plan Name Plan Number Policy Number [place] Group Number Start Date [employer] [place] [id number] We dnesAugust 19, 2013 [employer] [place] [id number] We dnes, 2009 [employer] [place] [id number] [place], 2013 History of Encounters Visit Date Visit Type Provider 05/01/2021 Nurse visit Castillo Alvarez PRN 03/30/2019 Office visit Hayder Encinas MD 11/21/2018 Hospital Trinidad Goldberg MD 11/20/2018 Office visit Hayder Encinas MD 04/17/2018 Office visit Hayder Encinas MD 11/05/2017 Office visit Shantell Freed APR N 09/12/2017 Office visit Hayder Encinas MD 08/29/2017 Office visit Hayder Encinas MD 08/15/2017 Office visit Hayder Encinas MD 04/16/2017 Office visit Hayder Encinas MD 12/07/2016 Laboratory Trinidad Goldberg MD 04/06/2016 Office visit Hayder Encinas MD 10/21/2015 Office visit Frank Rojas APR N 09/19/2015 Office visit Hayder Encinas MD 07/29/2015 [...] Hayder Encinas MD 12/05/2012 Office visit Chanda HIDALGO RN 04/24/2012 Office visit Hayder Encinas MD 10/02/2011 Office visit Hayder Encinas MD 09/19/2011 Office visit Hayder Encinas MD 09/07/2011 Office visit Hayder Encinas MD 08/23/2011 Office visit Hayder Encinas MD 05/29/2011 Office visit Tessa Bloom APRN 11/17/2010 Office visit Hayder Encinas MD 07/03/2010 Office visit Hayder Encinas MD 09/07/2009 Office visit Hayder Encinas MD
--- OUTSIDE RECORDS SUMMARY | 2021-06-27 09:04 | XMS REPORT ---
Author Author Arley Gurrola [facility] Address [address] [place], [place] [id number] Care Team Providers Care Clinical Supervisor Name Role Phone Castillo Gurrola PCP Unavailable Hayder Encinas PreferredProvider Allergies and Adverse Reactions Name Reaction Notes PENICILLINS Plan of Treatment Planned Activity Comments Planned Date Planned Time Plan/Goal EKG. 11/20/2018 12:00 AM Pfizer-Mommy NearestntZova Covid-19 Vaccine 05/01/2021 12:00 AM Medications Active [...] 12:00 AM Decadron, Per 1 Mg ND# [address]-79 Re viewed 09/19/2015 12:00 AM Depo-Medrol, Per 80 Mg ND#[address]-34 Reviewed 10/21/2015 12:[address] MAXILLOFACIAL W/O [...] 09/28/2013 12:00 AM Decadron, Per 1 Mg [facility]# [address]-67 Re viewed 09/28/2013 12:00 AM Depo-Medrol, Per 80 Mg [facility]#5709-2043-48 Reviewed 01/29/2014 12:00 AM COMPLETE CBC W/AUTO [...] Reviewed 11/17/2010 12:00 AM Depo-Medrol 80 Mg [facility] [id number] irma Reviewed 11/17/2010 12:00 AM Decadron Inj. per 1mg-[facility] [id number] tlinger Reviewed 10/18/2014 12:00 AM COMPLETE CBC W/AUTO DIFF WBC Reviewed 10/18/2014 12:00 AM COMPREHEN METABOLIC PANEL Reviewed 10/18/2014 12:00 AM LIPID PANEL Reviewed 10/18/2014 12:00 AM GLYCOSYLATED HEMOGLOBIN TEST Reviewed 10/18/2014 12:00 AM ASSAY THYROID STIM HORMONE Reviewed 10/18/2014 12:00 AM VITAMIN B-12 Reviewed 10/18/2014 12:00 AM ASSAY OF TOTAL TESTOSTERONE Reviewed 12/27/2014 12:00 AM Rocephin 1 gram [facility]#6723-2534-40 Reviewe d 02/28/2015 12:00 AM Decadron, Per 1 Mg [facility]# [address]-37 Re viewed 02/28/2015 12:00 AM Depo-Medrol 40mg [...] Group Number Start Date [employer] [place] [id number] We dnesAugust 19, 2013 [employer] [place] [id number] We dnes, 2009 [employer] [place] [id number] [place], 2013 History of Encounters Visit [...]
[2021-06-27 09:21] VITALS: BP 173/106
[2021-06-27 09:34] LABS: HEMATOCRIT 47 % (40-54); HEMOGLOBIN 16.8 g/dL (13.3-17.7); MEAN CORPUSCULAR HEMOGLOBIN 31 pg (25-34); MEAN CORPUSCULAR HGB CONC 36 g/dL (32-36); MEAN CORPUSCULAR VOLUME 87 fL (80-99); MEAN PLATELET VOLUME 9.5 fL (9.0-12.2); PLATELET COUNT 257 10^3/uL (130-400); WHITE BLOOD COUNT 9.1 10^3/uL (4.3-11.0)
[2021-06-27 09:47] LABS: PROTHROMBIN TIME PATIENT 13.7 SEC (12.2-14.7)
[2021-06-27 09:55] LABS: ALBUMIN 4.3 GM/DL (3.2-4.5); BILIRUBIN,TOTAL 0.9 MG/DL (0.1-1.0); CALCIUM 9.6 MG/DL (8.5-10.1); CREATININE SERUM 1.04 MG/DL (0.60-1.30); POTASSIUM 4.4 MMOL/L (3.6-5.0); TOTAL PROTEIN 7.5 GM/DL (6.4-8.2)
[~2021-06-27 11:00] MED LIST changes: +CLIN-144 PO; -CLIN300C12 PO; -DRON400T2 PO; +DRON400T6 PO; +FLEC50TA PO; +HEParin (CATH LAB) 2,000 ML IV ONE; +LIDOCAINE 1% INJ 20 ML 20 ML VIAL ONE; +METO200T48 PO; +NS IV 1000 ML 1,000 ML IV SCH; +NS IV 1000 ML 1,000 ML ONE; +OMEP40CA6 PO; +PRAM1.5T5 PO; -REGADENOSON 0.4 MG/5 ML SYR (LEXISCAN) IV ONE
[2021-06-27] MEDS ORDERED: MIDAZOLAM 5 MG/5 ML (VERSED) VIAL ONE (12:09)
[2021-06-27] MEDS ORDERED: fentaNYL INJ 100 MCG/2 ML AMP ONE (12:09)
--- NOTE | 2021-06-27 13:11 | Cardiac Procedure Note-CS/ASA ---
Pre-Procedure Note Pre-Op Procedure Note H&P Reviewed The H&P was reviewed, patient examined and no changes noted. Date H&P Reviewed: Jun 27, 2021 Time H&P Reviewed: 12:30 Conscious Sedation Pre-Proced Time 12:30 ASA Score 3 For ASA 3 and 4: Consider anesthesia and medical clearance. Also, for patients with a history of failed moderate sedation consider anesthesia. Airway Lungs Heart ASA score ASA 1: a normal healthy patient ASA 2: a patient with a mild systemic disease (mid diabetes, controlled hypertension, obesity ASA 3: a patient with a severe systemic disease that limits activity (angina, COPD, prior Myocardial infarction) ASA 4: a patient with an incapacitating disease that is a constant threat to life (CHF, renal failure) ASA 5: a moribund patient not expected to survive 24 hrs. (ruptured aneurysm) ASA 6: a declared brain- patient whose organs are being harvested. For emergent operations, add the letter E after the classification Mallampati Classification Grade 2 Sedation Plan Analgesia, Amnesia, Plan communicated to team members, Discussed options with patient/fam, Discussed risks with patient/fam The patient is an appropriate candidate to undergo the planned procedure, sedation, and anesthesia. The patient immediately re-assessed prior to indication. TA MADRID MD FACP FAC CCDS Jun 27, 2021 13:11
--- NOTE | 2021-06-27 13:13 | Discharge Inst-Cardiology ---
Discharge Inst-Cardiac Discharge Medications Continued Medications: Citalopram Hydrobromide (Citalopram HBr) 20 Mg Tablet 20 MG PO DAILY, TAB Flecainide Acetate (Flecainide Acetate) 50 Mg Tablet 50 MG PO BID, TAB Ibuprofen (Ibuprofen) 200 Mg Capsule 600 MG PO TID PRN for PAIN-MODERATE, CAP Latanoprost/Pf (Latanoprost 0.005% Eye Drop) 7.5 Ml Drops 1 DROP OS HS, DROPS Melatonin/Pyridoxine HCl (B6) (Melatonin 3 mg Tablet) 1 Each Tablet 1 EACH PO HS, TAB Metoprolol Succinate (Metoprolol Succinate) 200 Mg Tab.er.24h 200 MG PO DAILY, TAB Multivitamin (Multi-Vitamin Daily) 1 Each Tablet 1 EACH PO DAILY, TAB Omeprazole (Omeprazole) 40 Mg Capsule.dr 40 MG PO DAILY, CAP Pramipexole Di-HCl (Pramipexole Dihydrochloride) 1.5 Mg Tablet 1.5 MG PO HS, TAB Rivaroxaban (Xarelto) 20 Mg Tablet 20 MG PO 1999, TAB TA MADRID MD FACP FAC CCDS Jun 27, 2021 13:13
[2021-06-27] MEDS ORDERED: PATIENT MAY USE OWN MEDS, ALL PO SCH (13:15)
[2021-06-27] MEDS ORDERED: NS IV 1000 ML 1,000 ML IV SCH (13:15)
[2021-06-27 13:45] VITALS: BP 158/89
[2021-06-27 14:00] VITALS: BP 154/88
[2021-06-27 15:00] VITALS: BP 152/91
[2021-06-27 16:00] VITALS: BP 141/107
[2021-06-27 17:00] VITALS: BP 133/78
--- NOTE | 2021-06-27 17:58 | CARDIAC CATHETERIZATION ---
DATE OF SERVICE: 06/27/2021 CARDIAC CATHETERIZATION REPORT The patient is a 65-year-old gentleman who has coronary artery disease risk factors and has increasing symptoms of shortness of breath and exertional chest discomfort. Cardiac catheterization was carried out after having obtained an informed consent. DESCRIPTION OF PROCEDURE: He was brought to the cardiac catheterization laboratory in a fasting state. Right groin was prepared and draped in the usual sterile fashion. Lidocaine 1% was used for local anesthesia. Modified Seldinger technique was used to advance a 5-Andorran sheath in the right femoral artery. A 5-Andorran JL4 catheter was used for left coronary angiography, 5-Andorran JR4 catheter was used for right coronary angiography, 5-Andorran pigtail catheter was used for left heart catheterization and left ventricular angiography. Angiography of the right femoral artery was carried out through the sheath and Mynx was used to achieve hemostasis following sheath removal. HEMODYNAMICS: Left ventricular end-diastolic pressure following coronary angiography was 11 mmHg. There is no significant pressure gradient on pullback across the aortic valve. CORONARY ANGIOGRAPHY: Left main coronary artery, left anterior descending artery, left circumflex artery, right coronary artery do not exhibit any angiographically significant disease. Right coronary artery is dominant. LEFT VENTRICULAR ANGIOGRAPHY: Left ventricular angiography was carried out to the right anterior oblique projection. Global left ventricular systolic function, normal regional wall motion abnormality was seen in this view. Left ventricular ejection fraction approximately 60%. CONCLUSIONS: 1. No angiographically significant coronary artery disease on this study. 2. Normal global left ventricular systolic function with ejection fraction approximately 60%. 3. Left ventricular end-diastolic pressure 11 mmHg. DISCUSSION AND RECOMMENDATIONS: Based on results of the study, it appears appropriate to continue a conservative approach. Risk factor modification has been reviewed. Outpatient followup is advised. Job ID: [id number] DocumentID: [id number] Dictated Date: 06/27/2021 13:16:40 Gyroscope Technician Date: 06/27/2021 17:56:51 Dictated By: AT MADRID MD, MA, FACP, FACC,
== END 2021-06-27 17:45 | disposition home or self-care (01) ==
LOC: ICU 13:15 → CATH 17:45
PROVIDERS: ATTEND Internal Medicine Cardiovascular Disease
DX: R07.89 Other chest pain (principal); R06.02 Shortness of breath; I49.5 Sick sinus syndrome; I10 Essential (primary) hypertension; Z79.899 Other long term (current) drug therapy; Z79.01 Long term (current) use of anticoagulants
CPT/HCPCS: 36415; 80053; 80061; 85027; 85610; 85730; 87081

== ENCOUNTER → 2022-02-01 | Outpatient (CLI) | payer MEDICARE, OTHER ==
[~2022-02-01] MED LIST changes: -AMIO200T6 PO; +AMIO200T65 PO; -HEParin (CATH LAB) 2,000 ML IV ONE; -LIDOCAINE 1% INJ 20 ML 20 ML VIAL ONE; -NS IV 1000 ML 1,000 ML IV SCH; -NS IV 1000 ML 1,000 ML ONE; +OMEP20TA56 PO; -OMEP20TA7 PO; +RT-ALBUTEROL SULF 2.5 MG/3 ML PRE-MIX VIAL INH ONE
[2022-02-01 16:52] LABS: POTASSIUM 4.4 MMOL/L (3.6-5.0)
[2022-02-01 16:53] LABS: CALCIUM 9.6 MG/DL (8.5-10.1)
[2022-02-01 16:58] LABS: CREATININE SERUM 1.29 MG/DL (0.60-1.30)
[2022-02-01 17:00] LABS: MAGNESIUM 2.5 MG/DL (1.6-2.4)
== END ==
LOC: RT 15:45
PROVIDERS: ATTEND Internal Medicine Cardiovascular Disease
DX: R06.02 Shortness of breath (principal)
CPT/HCPCS: 36415; 80048; 83735; 94060; 94726; 94729